=== PATIENT | male | born 1960 | race Caucasian/White ===

== ENCOUNTER → 2021-03-22 00:24 | Outpatient (CLI) | payer MEDICARE, SELFPAY ==
[2021-03-22 17:39] LABS: SARS-CoV-2 RNA PCR Negative
== END ==
PROVIDERS: PCP Internal Medicine; Visit Provider Internal Medicine Gastroenterology
DX: Z01.812 Encounter for preprocedural laboratory examination (principal); Z20.822 Contact with and (suspected) exposure to COVID-19
CPT/HCPCS: C9803; U0003; U0005

== ENCOUNTER 2021-03-25 03:01 | Day surgery (SDC) | payer MEDICARE, SELFPAY ==
[2021-03-11 13:56] VITALS: BMI 35.0
[2021-03-25 12:10] VITALS: BP 135/90; PULSE 81; RESP 20; TEMP 36.5; O2SAT 96
[2021-03-25] MEDS: LACTATED RINGERS 1,000 ML 150 ML IV CONT (12:23)
[2021-03-25 12:24] LABS: Glucose Point of Care 101 mg/dl (65-105)
--- NOTE | 2021-03-25 12:57 | WPDANESEPPF ---
Anes - Initial Pre Proc Eval Procedure: Operation Date: 03/25/21 13:15 Proposed Procedures p Screening Colonoscopy - Victoriano Pal MD Date/Time: 03/25/21 12:57 Surgeon: Victoriano Pal MD Pre Op Diagnosis: neoplasm screening Patient Data Age: 60 Gender: M Height: 1.8 m Weight: 113.2 kg Last Vital Signs Temp 36.5 C 03/25/21 12:10 Pulse 81 03/25/21 12:10 Resp 20 03/25/21 12:10 BP 135/90 03/25/21 12:10 Pulse Ox 96 03/25/21 12:10 Allergies Allergy/AdvReac Type Severity Reaction Status Date / Time No Known Allergies Allergy Verified 03/25/21 12:07 Home Medications Medication Instructions Recorded Confirmed Type albuterol sulfate 90 mcg/actuation 1 puff INHALATION Q4H PRN 03/05/21 03/11/21 History aerosol inhaler aspirin 81 mg tablet,delayed 81 mg PO DAILY 03/05/21 03/11/21 History release cyclobenzaprine 5 mg tablet 5 mg PO TID PRN 03/05/21 03/11/21 History escitalopram oxalate 20 mg tablet 20 mg PO DAILY 03/05/21 03/11/21 History furosemide 20 mg tablet 20 mg PO QAM 03/05/21 03/11/21 History lisinopril 20 mg tablet 20 mg PO DAILY 03/05/21 03/11/21 History metformin 1,000 mg tablet 1,000 mg PO BID 03/05/21 03/11/21 History metoprolol succinate 50 mg 50 mg PO DAILY 03/05/21 03/11/21 History tablet,extended release 24 hr nitroglycerin 0.4 mg sublingual 0.4 mg SUBLINGUAL Q5M PRN 03/05/21 03/11/21 History tablet oxycodone 10 mg tablet,crush 10 mg PO Q12H 03/05/21 03/11/21 History resistant,extended release 12 hr rosuvastatin 40 mg tablet 40 mg PO DAILY 03/05/21 03/11/21 History trazodone 50 mg tablet 50 mg PO QHS PRN 03/05/21 03/11/21 History Laboratory Tests 03/25/21 12:21 POC Capillary Glucose 101 mg/dl mg/dl (65-105) Patient hx anesthesia problems: none Family hx anesthesia problems: none Results Review: All pre-operative results and documents have been reviewed as part of the pre-operative evaluation. [facility] Past Medical History Medical History (Updated 03/06/21 @ 11:04 by Victoriano Pal MD) Cholecystectomy planned Colon cancer screening COPD (chronic obstructive pulmonary disease) Diabetes Elevated liver enzymes Fatty liver Hyperlipidemia Hypertension Hypertriglyceridemia Neuropathy Sleep apnea Tonsillectomy planned Surgical History Surgical History History of appendectomy History of cardiovascular surgery Family History Family History Mother Family history of malignant neoplasm of breast in first degree relative Social History Social History (Updated 03/06/21 @ 10:42 by Stephanie [facility]) Smoking packs per day: 2 Smoking cigarettes per day: 40.0 Years smoked: 40 Smoking pack-years: 80.00 Smoking status: Current every day smoker Tobacco type: cigarettes Alcohol intake: never Substance use: never Substance use type: does not use Living arrangements: with family Spiritual care concerns: No Anes - Eval Final PreProcedure Day of Procedure 03/25/21 12:57 Patient weight: obese Heart: regular rate and rhythm Lungs: clear to auscultation and normal air movement Airway: Mallampati scale class II Neurological: alert and oriented Last oral intake: >/= 8 hours ASA classification: III Emergent: no Anesthetic plan: proceed Anesthesia type and monitoring: general GIVS Results Review: All pre-operative results and documents have been reviewed as part of the pre-operative evaluation. Informed Consent: The patient's anesthetic plan and its attendant risks and benefits were discussed with the patient/family/POA. Questions were solicited and answers provided to the satisfaction of the patient/family/POA.
--- NOTE | 2021-03-25 13:09 | WPDHPUPDATE1 ---
History and Physical Update Update Date/Time: 03/25/21 13:09 History and Physical has been reviewed, including an updated exam of the patient. There are NO changes in the patient's condition. Risks, benefits, and alternatives have been discussed and questions answered. Patient agrees to proceed with procedure.
[2021-03-25 13:29] VITALS: BP 106/66; PULSE 97; RESP 27; O2SAT 94
[2021-03-25 13:39] VITALS: BP 110/69; PULSE 88; RESP 23; O2SAT 96
[2021-03-25 13:49] VITALS: BP 114/78; PULSE 79; RESP 25; O2SAT 97
== END 2021-03-25 13:51 | disposition home or self-care (01) ==
PROVIDERS: PCP Internal Medicine; Visit Provider Internal Medicine Gastroenterology
PROC: 0DJD8ZZ Inspection of Lower Intestinal Tract, Via Natural or Artificial Opening Endoscopic (ICD-10-PCS; CPT 45378; principal; 2021-03-25 13:15)
DX: Z12.11 Encounter for screening for malignant neoplasm of colon (principal); D12.4 Benign neoplasm of descending colon; K64.8 Other hemorrhoids; K64.4 Residual hemorrhoidal skin tags; K63.5 Polyp of colon; R79.89 Other specified abnormal findings of blood chemistry; J44.9 Chronic obstructive pulmonary disease, unspecified; E11.9 Type 2 diabetes mellitus without complications; Z90.49 Acquired absence of other specified parts of digestive tract; K76.0 Fatty (change of) liver, not elsewhere classified; E78.5 Hyperlipidemia, unspecified; I10 Essential (primary) hypertension; E78.1 Pure hyperglyceridemia; E11.40 Type 2 diabetes mellitus with diabetic neuropathy, unspecified; G47.30 Sleep apnea, unspecified; F17.210 Nicotine dependence, cigarettes, uncomplicated; Z79.82 Long term (current) use of aspirin; Z79.51 Long term (current) use of inhaled steroids; Z79.84 Long term (current) use of oral hypoglycemic drugs; E66.9 Obesity, unspecified; Z68.34 Body mass index [BMI] 34.0-34.9, adult
CPT/HCPCS: 45380; 45385; 82948; 88305; J2704; J7120

== ENCOUNTER 2022-09-17 08:58 | Outpatient (CLI) | payer MEDICARE, SELFPAY ==
[2022-09-17 09:50] LABS: Basophils Absolute Auto 0.1 K/mm3 (0.0-0.1); Basophils Percent Auto 0.8 % (0.2-1.2); Eosinophils Absolute Auto 0.4 K/mm3 (0-0.3); Eosinophils Percent Auto 4.6 % (0-4.4); Hematocrit 42.1 % (42.0-52.0); Hemoglobin 14.3 g/dL (14.0-18.0); Immature Granulocyte Absolute 0.04 K/mm3 (0.00-0.031); Immature Granulocyte Percent A 0.5 % (0-0.5); Lymphocytes Percent Auto 24.6 % (18.3-44.2); Mean Corpuscular Hemoglobin 29.5 pg (26-34); Mean Corpuscular Volume 86.8 fl (80-100); Mean Platelet Volume 9.3 fl (7.4-10.4); Monocytes Absolute Auto 0.8 K/mm3 (0.1-0.6); Monocytes Percent Auto 9.6 % (2.6-8.5); Neutrophils Absolute Auto 5.1 K/mm3 (1.3-6.7); Neutrophils Percent Auto 59.9 % (45.5-73.1); Platelet Count Result 348 k/mm3 (150-375); Red Blood Count 4.85 M/mm3 (4.6-6.20); Red Cell Distribution Width 12.4 % (11.5-14.5); White Blood Count 8.5 K/mm3 (4.5-10.0)
[2022-09-17 11:24] LABS: Alanine Aminotransferase 40 U/L (6-50); Albumin Level 4.6 g/dL (3.5-5.1); Alkaline Phosphatase 65 U/L (38-126); Anion Gap 6 mmol/L (8-16); Aspartate Amino Transferase 36 U/L (17-59); Bilirubin,Total 0.5 mg/dL (0.2-1.3); Blood Urea Nitrogen 16 mg/dL (9-20); Calcium 9.6 mg/dL (8.4-10.2); Carbon Dioxide 28 mmol/L (22-30); Chloride 104 mmol/L (98-107); Cholesterol 129 mg/dL (0-200); Estimated Glomerular Filt Rate > 60; Glucose 107 mg/dL (65-110); HDL Direct 30 mg/dL; Potassium 4.5 mmol/L (3.4-5.0); Sodium 138 mmol/L (137-145); Triglycerides 279 mg/dL (<150)
[2022-09-17 11:39] LABS: LDL Cholesterol Direct 53 mg/dL
[2022-09-17 11:42] LABS: Creatinine Urine 130.5 mg/dL
[2022-09-17 11:43] LABS: Erythrocyte Sedimentation Rate 6 mm/hr (0-20)
[2022-09-17 11:44] LABS: CRP < 0.5 mg/dL (<1.0)
[2022-09-17 11:45] LABS: Free T4 Free Thyroxine 0.99 ng/mL (0.78-2.19); Vitamin D 25 Hydroxy 46.5 ng/mL
[2022-09-17 11:47] LABS: MALB Creatinine Ratio 29.5 mg/g (0-30); Microalbumin Urine Random 38.5 mg/L (0-16.7)
[2022-09-17 12:00] LABS: Thyroid Stimulating Hormone 0.475 uIU/mL (0.465-4.680)
[2022-09-17 12:01] LABS: Hemoglobin A1C 6.3 % (<5.7)
[2022-09-23 11:45] LABS: BCR/abl Prior Result Not Given
[2022-09-23 12:34] LABS: BCR/abl P190 Not Detected; BCR/abl P210 Not Detected
[2022-09-23 12:35] LABS: BCR/abl P190 Chg YES; BCR/abl P210 Chg YES
[2022-09-24 15:37] LABS: Insulin Level Total 19.9 uIU/mL (<=19.6)
== END 2022-09-17 08:59 | disposition home or self-care (01) ==
LOC: ANHLAB 09:01
PROVIDERS: Internal Medicine Endocrinology, Diabetes & Metabolism; PCP Internal Medicine; Visit Provider Internal Medicine Hematology & Oncology
DX: E11.65 Type 2 diabetes mellitus with hyperglycemia (principal); D72.829 Elevated white blood cell count, unspecified; E78.5 Hyperlipidemia, unspecified; E55.9 Vitamin D deficiency, unspecified
CPT/HCPCS: 36415; 80053; 80061; 81206; 81207; 82043; 82306; 83036; 83525; 84439; 84443; 85025; 85652; 86140; 88184

== ENCOUNTER 2024-02-17 08:00 | Outpatient (CLI) | payer MEDICARE, SELFPAY ==
--- NOTE | ~2024-02-17 | US_ITS ---
Limited Abdominal Sonogram: Real-time sonographic imaging of the right upper quadrant was performed. Clinical History: Fatty liver Findings: The liver appears echogenic, with no evidence of mass lesion or bile duct dilatation. Main portal vein demonstrates normal direction of flow. The gallbladder is absent, compatible prior rommel cystectomy. The common bile duct measures 5 mm. The visualized pancreas, aorta, and IVC are unremark able. Right renal cyst noted. Impression: Diffuse fatty infiltration of liver. Status post cholecystectomy. Reviewed, dictated and finalized at location . Impression: Diffuse fatty infiltration of liver. Status post cholecystectomy.
== END 2024-02-17 08:01 | disposition home or self-care (01) ==
LOC: ANHIMG 08:02
PROVIDERS: PCP Internal Medicine; Visit Provider Nurse Practitioner Family
DX: K76.0 Fatty (change of) liver, not elsewhere classified (principal); Z90.49 Acquired absence of other specified parts of digestive tract
CPT/HCPCS: 76705

== ENCOUNTER 2025-02-07 09:50 | Outpatient (CLI) | payer MEDICARE, SELFPAY ==
--- OUTSIDE RECORDS SUMMARY | 2023-08-13 09:30 | XMS_ITS ---
Author Organization [facility] Office Address [address] [facility] [address] [facility] [address] [place] [address] Care Team Providers Care Hvac Journeyman Name Role Phone Allen Madhav Saini [phone] Social History Sex Assigned At : Social History Observation Description Sex Assigned At Male Encounters Encounter Location Date Provider Diagnosis [place] [facility] [address] [facility] [address] [place] [address] 08/13/2023 Madhav Villa Chronic kidney disea se, stage 3a N18.31 ; Essential (primary) hypertension I10 ; Heart failure, unspecified I50.9 and Renal osteodystrophy N25.0 Assessments Encounter Date Diagnosis (ICD Code) Assessment Notes Treatment Notes Treatment Clinical Notes Section Notes 08/13/2023 Chronic kidney disease, stage 3a (ICD-10 - N18.31) 08/13/2023 Essential (primary) hypertension (ICD-10 - I10) 08/13/2023 Heart failure, unspecified (ICD-10 - I50.9) 08/13/2023 Renal osteodystrophy (ICD-10 - N25.0) Plan Of Treatment No Information Progress Notes * WAQAS FLORENCEDOB:1960 (64 yo M)Acc No.[id number]:08/13/2023 Progress Notes Patient: WAQAS DELCID Provider: Calli DOWNS MD, F.A.C.P, F.A.S.N. :1960 A ge:63 Y S ex:Male Date:08/13/2023 Address:[address] [place] [address] Subjective: * Chief Complaints: * * Medical History: Objective: * Vitals: Assessment: * Assessment: 1. C hronic kidney disease, stage 3a - N18.31 2 . E ssential (primary) hypertension - I10 3 . H eart failure, unspecified - I50.9 4 . R enal osteodystrophy - N25.0 Plan: * Treatment: * Billing Information: * Visit Code: 49733 Office Visit, Est Pt., Level 4. * Procedure Codes: * Electronic signature of Letitia Villa MD on 02/07/2025 at 10:39 AM CDT Sign off status: Pending * Provider: Calli DOWNS MD, F.A.C.P, F.A.S.N. Date: 08/13/2023 Generated for Printing/Faxing/eTransmitting on: 0 02/07/2025 10:39 AM CDT
--- OUTSIDE RECORDS SUMMARY | 2024-04-28 10:00 | XMS_ITS ---
Author Organization [facility] Office Address [address] [place] [address] Care Team Providers Care Sander Operator Name Role Phone Madhav Villa Unavailable [phone] Social History Sex Assigned At : Social History Observation Description Sex Assigned At Male Encounters Encounter Location Date Provider Diagnosis [place] [facility] [address] [facility] 15 [place] [address] 04/28/2024 Madhav Villa Plan Of Treatment No Information Progress Notes * WAQAS FLORENCEDOB:1960 (64 yo M)Acc No.[id number]:04/28/2024 Progress Notes Patient: WAQAS DELCID Provider: Calli DOWNS MD, F.Abelardo.C.P, F.A.S.N. :1960 A ge:63 Y S ex:Male Date:04/28/2024 Address:[address] [place] [address] Subjective: * Chief Complaints: * * Medical History: Objective: * Vitals: Assessment: Plan: * Treatment: * Billing Information: * Visit Code: * Procedure Codes: * Electronic signature of Letitia Villa MD on 02/07/2025 at 10:40 AM CDT Sign off status: Pending * Provider: Calli DOWNS MD, Richar.Abelardo.C.P, F.A.S.N. Date: 06/29/2023 Generated for Printing/Faxing/eTransmitting on: 0 02/07/2025 10:40 AM CDT
--- OUTSIDE RECORDS SUMMARY | 2024-08-16 14:45 | XMS_ITS ---
Author Organization [facility] Office Address [address] [place] [address] Care Team Providers Care Cargo Bracer Name Role Phone Madhav Villa Unavailable [phone] Social History Sex Assigned At : Social History Observation Description Sex Assigned At Male Encounters Encounter Location Date Provider Diagnosis [place] [facility] 2043 [facility] 15 [place] [address] 08/16/2024 Madhav Villa Plan Of Treatment No Information Progress Notes * WAQAS FLORENCEDOB:1960 (64 yo M)Acc No.[id number]:08/16/2024 Progress Notes Patient: WAQAS DELCID Provider: Calli DOWNS MD, F.Abelardo.C.P, F.A.S.N. :1960 A ge:64 Y S ex:Male Date:08/16/2024 Address:[address] [place] [address] Subjective: * Chief Complaints: * * Medical History: Objective: * Vitals: Assessment: Plan: * Treatment: * Billing Information: * Visit Code: * Procedure Codes: * Electronic signature of Letitia Villa MD on 02/07/2025 at 10:39 AM CDT Sign off status: Pending * Provider: Calli DOWNS MD, Richar.Abelardo.C.P, F.A.S.N. Date: 08/16/2024 Generated for Printing/Faxing/eTransmitting on: 0 02/07/2025 10:39 AM CDT
--- OUTSIDE RECORDS SUMMARY | 2024-09-01 10:00 | XMS_ITS ---
Author Organization [facility] Office Address [address] [place] [address] Care Team Providers Care Entry Level Business Analyst Name Role Phone Madhav Villa Unavailable [phone] Social History Sex Assigned At : Social History Observation Description Sex Assigned At Male Encounters Encounter Location Date Provider Diagnosis [place] [facility] [address] [facility] 15 [place] [address] 09/01/2024 Madhav Villa Plan Of Treatment No Information Progress Notes * WAQAS FLORENCEDOB:1960 (64 yo M)Acc No.[id number]:09/01/2024 Progress Notes Patient: WAQAS DELCID Provider: Calli DOWNS MD, Richar.Abelardo.C.P, F.A.S.N. :1960 A ge:64 Y S ex:Male Date:09/01/2024 Address:[address] [place] [address] Subjective: * Chief Complaints: * * Medical History: Objective: * Vitals: Assessment: Plan: * Treatment: * Billing Information: * Visit Code: * Procedure Codes: * Electronic signature of Letitia Villa MD on 02/07/2025 at 10:39 AM CDT Sign off status: Pending * Provider: Calli DOWNS MD, Richar.Abelardo.C.P, F.A.S.N. Date: 09/01/2024 Generated for Printing/Faxing/eTransmitting on: 0 02/07/2025 10:39 AM CDT
--- OUTSIDE RECORDS SUMMARY | 2024-09-22 10:00 | XMS_ITS ---
Author Organization [facility] Office Address [address] [place] [address] Care Team Providers Care Flash Designer Name Role Phone Madhav Villa Unavailable [phone] Social History Sex Assigned At : Social History Observation Description Sex Assigned At Male Encounters Encounter Location Date Provider Diagnosis [place] Office 2043 [facility] 15 [place] [address] 09/22/2024 Madhav Villa Plan Of Treatment No Information Progress Notes * WAQAS FLORENCEDOB:1960 (64 yo M)Acc No.[id number]:09/22/2024 Progress Notes Patient: WAQAS DELCID Provider: Calli DOWNS MD, F.Abelardo.C.P, F.A.S.N. :1960 A ge:64 Y S ex:Male Date:09/22/2024 Address:[address] [place] [address] Subjective: * Chief Complaints: * * Medical History: Objective: * Vitals: Assessment: Plan: * Treatment: * Billing Information: * Visit Code: * Procedure Codes: * Electronic signature of Letitia Villa MD on 02/07/2025 at 10:39 AM CDT Sign off status: Pending * Provider: Calli DOWNS MD, Richar.Abelardo.C.P, F.A.S.N. Date: 0 09/22/2024 Generated for Printing/Faxing/eTransmitting on: 0 02/07/2025 10:39 AM CDT
--- NOTE | ~2025-02-07 | US_ITS ---
EXAMINATION: US venous doppler LE LT, 02/07/2025 10:05 CDT HISTORY: pain in lt leg Comparison: None Technique: Reyes-scale and color Doppler images were attempted of the lower saphenofemoral junction, common femoral vein,superficial femoral vein, proximal deep femoral vein, proximal deep femoral vein, popliteal vein and posterior tibial veins. Findings: Deep Venous System:Normal flow, augmentation and compressibility. No echogenic thrombus identified. The contralateral saphenofemoral junction appears unremarkable. Superficial Venous SystemNo superficial thrombophlebitis. Soft tissues: Soft tissues are unremarkable. Impression: Negative for DVT. Reviewed, dictated and finalized at location A. Impression: Negative for DVT.
--- OUTSIDE RECORDS SUMMARY | 2025-02-07 10:39 | XMS_ITS | Clinical Summary ---
Author Organization [facility] Address [address] [place] [address] Phone Care Team Providers Care Supervisor Records Change Name Role Phone Joselito Lazo MD Primary Care Provider Allergies Active Allergy Reactions Criticality Noted Date Comments Hydrocodone Itching Medium 2022 Morphine Unknown DERIVATIVES, CAUSED GI BURNING PER PATIENT STATEMENT ONCE, BUT PATIENT STATED ON 05/28/22HAS HAD MORPHINE SINCE THEN WITH NO PROBLEMS NOTED. Statins Other (see Comments) severe chest pains with all other statins besides Lipitor Medications cyclobenzaprine (FLEXERIL) 10 MG Tablet Take 10 mg by mouth 2 times daily. PER PATIENT ONLY TAKES ONCE DAILY AT NIGHT. Active ezetimibe (ZETIA) 10 MG Tablet Take 10 mg by mouth daily. Active furosemide (LASIX) 20 MG Tablet Take 1 Tab by mouth daily. 90 Tab 3 05/18/19 18 Active Semaglutide (OZEMPIC, 1 MG/DOSE, SC) 0.25 mg by Subcutaneous route every 7 days. Active traZODone (DESYREL) 50 MG Tablet 12/26/19 20 Active metFORMIN (GLUCOPHAGE) 1000 MG Tablet Take 1,000 mg by mouth 2 times daily (with meals). 12/26/19 20 Active albuterol 108 (90 Base) MCG/ACT Aerosol Solution 11/29/19 20 Active amitriptyline (ELAVIL) 25 MG Tablet Take 12.5 mg by mouth nightly. TAKES ONE HALF OF 25 MG TABLET NIGHTLY Active lisinopril (PRINIVIL, ZESTRIL) 20 MG Tablet Take 10 mg by mouth daily. Active metoprolol Succinate (TOPROL-XL) 100 MG TABLET SR 24 HR Take 100 mg by mouth daily. Active nitroGLYCERIN (NITROSTAT) 0.4 MG SL Tablet 0.4 mg by Sublingual route every 5 minutes as needed. Active oxyCODONE-acetami nophen (PERCOCET) 5-325 MG TabletIndications :Primary osteoarthritis of right hip Take 1-2 Tablets by mouth every 4 hours as needed for Moderate or more severe pain. 40 Tablet 06/09/19 23 Active Glucose Blood (Precision QID Test) Strip 1 Each by Other route daily. 05/25/19 24 Active latanoprost (XALATAN) 0.005 % Solution Place 1 Drop in both eyes nightly. 08/23/19 25 Active rosuvastatin (CRESTOR) 40 MG Tablet Take 1 Tablet by mouth daily. 03/27/20 24 Active vitamin E (Natural Vitamin E) 400 UNIT Capsule Take 800 Units by mouth daily. Active amLODIPine (NORVASC) 2.5 MG Tablet Take 1 Tablet by mouth daily. 90 Tablet 08/30/19 25 Active famotidine (PEPCID) 20 MG TabletIndications :Gastroesophageal Reflux Disease Take 1 Tablet by mouth 2 times daily. Indications: Gastroesophageal Reflux Disease 90 Tablet 08/29/19 25 Active Active Problems Problem Noted Date Diagnosed Date Chest pain 08/27/2024 FRANNY (obstructive sleep apnea) 01/25/2017 Chronic cough 12/13/2016 Tendonitis, Achilles, left 12/11/2016 Equinus contracture of left ankle 12/11/2016 Vitamin D deficiency 06/30/2016 Tobacco abuse 04/21/2016 Coronary arteriosclerosis 04/21/2016 Chronic fatigue 04/21/2016 Chronic bilateral low back pain without sciatica 03/26/2016 Stented coronary artery 03/26/2016 Neuropathy 03/26/2016 Hyperlipidemia 03/26/2016 Low testosterone 03/26/2016 Spondylosis 03/26/2016 Levoscoliosis 03/26/2016 Atypical chest pain 07/28/2015 Osteoarthritis Synovitis Overview (02/19/2015): L GALILEA IMPROVED Immunizations Immunization Administration Dates Next Due Influenza Vaccine greater than 3 yrs 04/03/2013 Family History Medical History Relation Name Comments No Known Problems Father Cancer Mother breast High Cholesterol Mother Hypertension Mother Relation Name Status Comments Father Mother Alive Social History Tobacco Use Types Packs/Day Years Used Date Smoking Tobacco: Every Day Cigarettes 1.5 40 Smokeless Tobacco: Never Tobacco Cessation:Ready to Q uit: Not Asked; Counseling Given: Not Answered Alcohol Use Standard Drinks/Week Comments Yes 0 (1 standard drink = 0.6 oz pur e alcohol) ONE DRINK A MONTH [facility] Utilities Answer Date Recorded In the past 12 months has e electric, gas, oil, or water company threatened to shut off services in your home? No 08/27/2024 Social Connection and Isolation Panel Answer Date Recorded In a typical week, how many times do you talk on the phone with family, friends, or neighbors? Patient declined 08/27/2024 How often do you get togethe r with friends or relatives? Patient declined 08/27/2024 How often do you attend protestant or rastafarian serv ices? Patient declined 08/27/2024 Do you belong to any clubs o r organizations such as protestant groups, unions, fraternal or athletic groups, or school groups? Patient declined 08/27/2024 How often do you attend meet ings of the clubs or organizations you belong to? Patient declined 08/27/2024 Are you , , di vorced, , never , or living with a partner? 08/27/2024 AUDIT-C Answer Date Recorded Q1: How often do you have a drink containing alc ohol? Monthly or less 08/27/2024 Q2: How many drinks containi ng alcohol do you have on a typical day when you are drinking? 1 or 2 08/27/2024 Q3: How often do you have si x or more drinks on one occasion? Never 08/27/2024 Overall Financial Resource Strain (CARDIA) Answe r Date Recorded How hard is it for you to pa y for the very basics like food, housing, medical care, and heating? Not hard at all 08/27/2024 [employer] [place] [facility] Occupat ional Health - Occupational Stress Questionnaire Answer Date Recorded Do you feel stress - tense, restless, nervous, or anxious, or unable to sleep at night because your mind is troubled all the time - these days? Patient declined 08/27/2024 Exercise Vital Sign Answer Date Recorde d On average, how many days pe r week do you engage in moderate to strenuous exercise (like a brisk walk)? Patient declined On average, how many minutes do you engage in exercise at this level? Patient declined 08/27/2024 Hunger Vital Sign Answer Date Recorded Within the past 12 months, y ou worried that your food would run out before you got the money to buy more. Never true 08/28/19 25 Within the past 12 months, t he food you bought just didn't last and you didn't have money to get more. Never true 08/27/2024 PRAPARE - Transportation Answer Date Re corded In the past 12 months, has l ack of transportation kept you from medical appointments or from getting medications? No 08/15 In the past 12 months, has l ack of transportation kept you from meetings, work, or from getting things needed for daily living? No 08/27/2024 Housing Stability Vital Sign Answer Edmundo e Recorded In the last 12 months, was t here a time when you were not able to pay the mortgage or rent on time? No 08/27/2024 In the past 12 months, how m any times have you moved where you were living? 0 08/27/2024 At any time in the past 12 m [facility], were you homeless or living in a group home (including now)? No 08/27/2024 Sexually Active Control Partners Comments Yes Female Sex and Gender Information Value Date Recorded Sex Assigned at Not on file Legal Sex Male 9:43 PM CDT Gender Identity Not on file Sexual Orientation Not on file Last Filed Vital Signs Vital Sign Reading Time Taken Comments Blood Pressure 142/92 08/28/2024 9:04 AM CDT Pulse 88 08/28/2024 9:04 AM CDT Temperature 36.4 C (97.6 F) 08/28/2024 5:01 AM CDT Respiratory Rate 16 08/28/2024 7:44 AM CDT Oxygen Saturation 94% 08/28/2024 7:44 AM CDT Inhaled Oxygen Concentration - - Weight 120.7 kg (266 lb) 08/28/2024 9:17 AM CDT Height 180.3 cm (5' 11) 08/28/2024 9:17 AM CDT Body Mass Index 37.1 08/28/2024 9:17 AM CDT Plan of Treatment Health Maintenance Due Date Last Done Comments TdaP Immunization 1961 Cologuard 2006 Colonoscopy 2006 Colorectal Cancer Screening 2006 Immunochemical Fecal Occult Blood 2006 Hepatitis B Immunization (2 of 3 - 19+ 3-dose series) 06/14/2009 05/17/2009 Zoster Immunization (1 of 2) 2011 Lung Cancer Screening 11/10/2019 11/09/2018 , 06/22/2017 Pneumococcal Immunization (5 0+ years) (2 of 2 - PCV) 03/14/2021 03/14/2020 Respiratory Syncytial Virus (RSV) Immunization (Adult) (1 - Risk 60-74 years 1-dose series) 2021 Influenza Immunization (#1) 01/15/202506/2019, 02/15/2020, 04/03/2013 SARS-COV-2 Immunization ( - season) 2025 Hepatitis C Virus (HCV) Screening Completed 09/13/2018 PSA Discussion Completed 11/23/2019, 07/12/2018, 02/25/2018 Pneumococcal Immunization Combined Discontinued 03/14/2020 Human Papillomavirus (HPV) Immunization Aged Out No longer eligible based on patient's age to complete this topic Meningococcal Immunization (ACWY) Aged Out No longer eligible based on patient's age to complete this topic Rotavirus Immunization Aged Out No lo nger eligible based on patient's age to complete this topic Medical Devices Implanted Type Area Crew Leader Device Identifier Shelf Expiration Date Model / Serial / Lot Liner Actb Altrx Hope Neutral 58mm 36mm Hip - [id number] Implanted:Qty: 1 on 06/09/2022 by Dhruv Troncoso MD at [facility] IMPLANT Right: Hip [employer] 01/14/2027 [id number] / [id number] / [id number] Screw Bone 6.5mm 35mm Hope Dome 4 Point Cut Flute Hip Actb Canc Slftp Hex Head Blunt Tip - [id number] Implanted:Qty: 1 on 06/09/2022 by Dhruv Troncoso MD at [facility] IMPLANT Right: Hip [employer] 12/15/2031 [id number] / [id number] / [id number] Shell Actb 58mm Hip Sector Gription Hope - [id number] Implanted:Qty: 1 on 06/09/2022 by Dhruv Troncoso MD at [facility] IMPLANT Right: Hip [employer] 03/16/2032 [id number] / [id number] / [id number] Head Fem 5mm 12/14 Taper 36mm Hip Cementless Biolox Delta Articul/Marco - [id number] Implanted:Qty: 1 on 06/09/2022 by Dhruv Troncoso MD at [facility] IMPLANT Right: Hip [employer] 04/15/2027 [id number] / [id number] / [id number] Femoral Stem Implanted:Qty: 1 on 06/09/2022 by Dhruv Troncoso MD at [facility] Right: Hip [employer] 09/14/2031 [id number] / [id number] / [id number] Procedures Procedure Name Priority Date/Time Associated Diagnosis Comments PSA FREE & TOTAL Routine 11/23/[address] CHEST W CONTRAST STAT 06/22/2017 4 :26 PM SUBSTATION MAINTENANCE TECHNICIAN from Last 3 Months or Most Recently Relevant to Health Maintenance Results * PSA FREE & TOTAL (11/23/2019) PSA (PROSTATE SPECIFIC ANTIGEN) 3.0 ng/mL Blood specimen (specimen) 11/23/2019 us Sonja Persaud MD CHEMISTRY ORDERABLES Edited Result - Final * CT CHEST W CONTRAST (06/22/2017 4:26 PM SUBSTATION MAINTENANCE TECHNICIAN) Anatomical Region Laterality Modality Chest N/A Computed Tomogra phy 06/22/2017 5:17 PM SUBSTATION MAINTENANCE TECHNICIAN Impressions 06/22/2017 5:20 PM SUBSTATION MAINTENANCE TECHNICIAN IMPRESSION: 1. No central pulmonary embolism. Evaluation of the peripheral pulmonary arteries limited by suboptimal bolus and respiratory motion. 2. Aneurysmal dilatation of the ascending thoracic aorta, measuring 4.4 cm at the level of the main pulmonary artery, previously 4.2 cm in 2014. Apparent interval enlargement may be related to motion artifact on today's examination. Continued imaging followup is recommended. 3. Dense coronary artery atherosclerotic calcifications. 4. Mild mosaic attenuation within the lungs, compatible small vessels or small airways disease. 5. Status post cholecystectomy. Automated exposure control was used as a dose optimization technique for this examination. Narrative 06/22/2017 5:20 PM SUBSTATION MAINTENANCE TECHNICIAN EXAMINATION: CT chest with contrast - pulmonary embolism protocol HISTORY: Right-sided chest pain for days; elevated D-dimer COMPARISON: 09/28/2013 TECHNIQUE: CT imaging of the chest is performed with intravenous contrast according to a pulmonary embolism protocol. 100 mL Isovue 370 administered intravenously via the left forearm IV site. Multiplanar reformatted images created at the technologist workstation and sent to the PACS for review. FINDINGS: No central pulmonary embolism. Evaluation of peripheral pulmonary arteries precluded by suboptimal bolus and respiratory motion. Heart size is normal. There are dense atherosclerotic calcifications of the coronary arteries. There is no pericardial effusion. There is aneurysmal dilatation of the ascending thoracic aorta, which measures 4.4 cm at the level of the main pulmonary artery, previously 4.2 cm on 09/28/2013. Interval enlargement possibly related to motion artifact on today's examination. There is mild atherosclerotic calcification of the thoracic aorta and proximal great vessels. There is mild bilateral gynecomastia. There is no axillary, supraclavicular, hilar, or mediastinal lymphadenopathy. Calcified mediastinal and hilar lymph nodes are compatible with healed granulomatous disease, unchanged from prior examination. There are multiple scattered calcified granulomas throughout the lungs. This appearance is unchanged from the prior examination. No suspicious noncalcified pulmonary nodule. No pleural effusion. No pneumothorax. The trachea and large airways are patent. There is mild mosaic attenuation within both lungs, suggesting small vessels or small airways disease. Limited images of the upper abdomen demonstrate a mild amount of ingested content within the stomach. There are postsurgical changes of cholecystectomy. There is mild diffuse hepatic steatosis. Tiny hiatal hernia is present. Bone windows demonstrate no suspicious lytic or blastic osseous lesions. THIS IS AN ELECTRONICALLY VERIFIED REPORT 06/22/2017 5:17 PM: Constantin Blancas M.D. Constantin Blancas M.D. Radiologist RT:rt [facility] Procedure Note Constantin Blancas MD - 06/22/2017 EXAMINATION: CT chest with contrast - pulmonary embolism protocol HISTORY: Right-sided chest pain for days; elevated D-dimer COMPARISON: 09/28/2013 TECHNIQUE: CT imaging of the chest is performed with intravenous contrast according to a pulmonary embolism protocol. 100 mL Isovue 370 administered intravenously via the left forearm IV site. Multiplanar reformatted images created at the technologist workstation and sent to the PACS for review. FINDINGS: No central pulmonary embolism. Evaluation of peripheral pulmonary arteries precluded by suboptimal bolus and respiratory motion. Heart size is normal. There are dense atherosclerotic calcifications of the coronary arteries. There is no pericardial effusion. There is aneurysmal dilatation of the ascending thoracic aorta, which measures 4.4 cm at the level of the main pulmonary artery, previously 4.2 cm on 09/28/2013. Interval enlargement possibly related to motion artifact on today's examination. There is mild atherosclerotic calcification of the thoracic aorta and proximal great vessels. There is mild bilateral gynecomastia. There is no axillary, supraclavicular, hilar, or mediastinal lymphadenopathy. Calcified mediastinal and hilar lymph nodes are compatible with healed granulomatous disease, unchanged from prior examination. There are multiple scattered calcified granulomas throughout the lungs. This appearance is unchanged from the prior examination. No suspicious noncalcified pulmonary nodule. No pleural effusion. No pneumothorax. The trachea and large airways are patent. There is mild mosaic attenuation within both lungs, suggesting small vessels or small airways disease. Limited images of the upper abdomen demonstrate a mild amount of ingested content within the stomach. There are postsurgical changes of cholecystectomy. There is mild diffuse hepatic steatosis. Tiny hiatal hernia is present. Bone windows demonstrate no suspicious lytic or blastic osseous lesions. THIS IS AN ELECTRONICALLY VERIFIED REPORT 06/22/2017 5:17 PM: Constantin Blancas M.D. Constantin Blancas M.D. Radiologist RT:rt [facility] IMPRESSION: 1. No central pulmonary embolism. Evaluation of the peripheral pulmonary arteries limited by suboptimal bolus and respiratory motion. 2. Aneurysmal dilatation of the ascending thoracic aorta, measuring 4.4 cm at the level of the main pulmonary artery, previously 4.2 cm in 2013. Apparent interval enlargement may be related to motion artifact on today's examination. Continued imaging followup is recommended. 3. Dense coronary artery atherosclerotic calcifications. 4. Mild mosaic attenuation within the lungs, compatible small vessels or small airways disease. 5. Status post cholecystectomy. Automated exposure control was used as a dose optimization technique for this examination. Riaz Gonzalez MD IMG CT ORDERABLES Final Re sult from Last 3 Months or Most Recently Relevant to Health Maintenance Additional Health Concerns Infection Onset Date Last Indicated MRSA 06/28/2022 06/28/2022 [facility] Directives * Full Code (Latest Code Status on File) Date Activated Date Inactivated Comments 08/27/2024 8:49 PM CPR-Full Treat ment: FULL ARREST: Attempt Resuscitation/CPR wit intubation and mechanical ventilation. PRE-ARREST: Use entire range of life support measures to stabilize the patient. * Full Code Date Activated Date Inactivated Comments 12/14/2016 1:21 PM 12/14/2016 7:59 PM CPR-Full Christiano atment: FULL ARREST: Attempt Resuscitation/CPR wit intubation and mechanical ventilation. PRE-ARREST: Use entire range of life support measures to stabilize the patient. Care Teams Supervisor Records Change Relationship Specialty Start Date End Date Joselito Lazo MD [address] [place] [place] [id number] PCP - General Internal Medicine 06/16/18
--- OUTSIDE RECORDS SUMMARY | 2025-02-07 10:39 | XMS_ITS | Encounter Summary ---
Author Organization [facility] Address [address] [place] [address] Phone Care Team Providers Care Sanitary Aide Name Role Phone Joselito Lazo MD Primary Care Provider Encounter Details Date Type Department Care Team (Late st Contact Info) Description 2022 Transcribe Orders [facility] Pre[facility] [address] [place] [address] Dhruv Troncoso MD [address] [place] [address], [address] [place] [address] Pre-op testing (Primary Dx) Social History Tobacco Use Types Packs/Day Years Used Date Smoking Tobacco: Every Day Cigarettes 1.5 40 Smokeless Tobacco: Never Alcohol Use Standard Drinks/Week Comments Yes 0 (1 standard drink = 0.6 oz pur e alcohol) ONE DRINK A MONTH Sexually Active Control Partners Comments Yes Female Sex and Gender Information Value Date Recorded Sex Assigned at Not on file Legal Sex Male 9:43 PM CDT Gender Identity Not on file Sexual Orientation Not on file COVID-19 Exposure Response Date Recorded In the last 10 days, have yo u been in contact with someone who was confirmed or suspected to have Coronavirus/COVID-19? No / Unsure 2022 11:16 AM WINE BLENDER documented as of this encounter Plan of Treatment Not on file documented as of this encounter Results * TYPE & SCREEN (CROSSMATCH CONVERTIBLE) (06/03/2022 7:54 AM WINE BLENDER) ABO TYPING O 06/03/2022 9:36 AM WINE BLENDER [facility] RH Positive 06/03/2022 9:36 AM WINE BLENDER [facility] ABSC Negative 06/03/2022 9:36 AM WINE BLENDER [facility] Blood Venipuncture / Unknown 06/03/2022 7:54 AM WINE BLENDER 06/03/2022 8:24 AM WINE BLENDER us Dhruv Troncoso MD BLOOD BANK ORDERABLES Ed ited Result - Final [facility] [address] [place] [address] documented in this encounter Visit Diagnoses Diagnosis Pre-op testing- Primary Preoperative examination, unspecified documented in this encounter Additional Health Concerns Infection Onset Date Last Indicated Resolved Time MRSA 06/28/2022 06/28/2022 Assessment Noted Time PHQ-9 Depression Total Score: 0 04/01/20 17 2:00 PM WINE BLENDER documented as of this encounter Care Teams Sanitary Aide Relationship Specialty Start Date End Date Joselito Lazo MD [address] [facility] [place] [id number] PCP - General Internal Medicine 06/16/18 documented as of this encounter
--- OUTSIDE RECORDS SUMMARY | 2025-02-07 10:39 | XMS_ITS | Clinical Summary ---
Author Organization [facility] [address] [place] [address] Professional Wilkinson Address [address] [place] [id number] Care Team Providers Care Barrel Planer Name Role Phone Domingo Lazo MD Primary Care Provide r Allergies Active Allergy Reactions Criticality Noted Date Comments Hydrocodone Itching Low 02/12/2020 Morphine Unknown 08/15/2021 DERIVATIVES Medications oxyCODONE-acet aminophen (PERCOCET) 10-325 mg per tablet Take 1 tablet by mouth 4 (four) times a day as needed for pain Active nitroglycerin (NITROSTAT) 0.[address] 1 tablet (0.4 mg total) under the tongue every 5 (five) minutes as needed for chest pain Active traZODone (DESYREL) 50 mg tablet Take 1 tablet (50 mg total) by mouth nightly For sleep Active aspirin 81 mg enteric coated tabletIndicati ons:cardiovasc ular disease Take 1 tablet (81 mg total) by mouth daily 30 tablet 3 02/16/20 20 Active amitriptyline (ELAVIL) 25 mg tablet Take 0.5 tablets (12.5 mg total) by mouth nightly Active albuterol HFA (PROVENTIL HFA,VENTOLIN HFA,PROAIR HFA) 90 mcg/actuation inhaler Inhale 1 puff every 4 (four) hours as needed for wheezing or shortness of breath 02/03/20 22 Active cyclobenzaprin e (FLEXERIL) 10 mg tablet Take 1 tablet (10 mg total) by mouth 2 (two) times a day as needed for muscle spasms 02/05/20 Active ezetimibe (ZETIA) 10 mg tablet Take 1 tablet (10 mg total) by mouth daily 05/02/20 Active lisinopriL (PRINIVIL,ZEST RIL) 10 mg tablet Take 1 tablet (10 mg total) by mouth daily 90 tablet 3 12/03/19 Active isosorbide mononitrate ER (IMDUR) 30 mg 24 hr tablet Take 1 tablet (30 mg total) by mouth daily 30 tablet 1 09/01/19 Active atorvastatin (LIPITOR) 40 mg tablet Take 1 tablet (40 mg total) by mouth daily 30 tablet 1 09/02/19 25 Active metoprolol XL (TOPROL-XL) 100 mg 24 hr tablet Take 1 tablet (100 mg total) by mouth daily 90 tablet 3 12/20/192025 Active amoxicillin-cl avulanate (AUGMENTIN) 875-125 mg per tablet Take 1 tablet by mouth every 12 (twelve) hours for 7 days 01/03/20 Active metFORMIN XR (GLUCOPHAGE XR) 750 mg 24 hr tablet Take 2 tablets (1,500 mg total) by mouth daily with breakfast With next prescription refill. E11.9 180 tablet 01/12/202025 Active semaglutide 0.25 mg or 0.5 mg (2 mg/3 mL) pen injector injectionIndic ations:type 2 diabetes mellitus Inject 0.5mg weekly if no symptoms of nausea, vomiting or abd. Pain. E11.65 3 mL 10/01/19 24 2024 Discontinued(T herapy completed) amLODIPine (NORVASC) 2.5 mg tablet Take 1 tablet (2.5 mg total) by mouth daily 08/30/192024 Discontinued(T herapy completed) metFORMIN (GLUCOPHAGE) 500 mg tablet Take 2 tablets (1,000 mg total) by mouth 2 (two) times a day with meals E11.9 360 tablet 09/05/192024 Discontinued Active Problems Problem Noted Date Diagnosed Date Unstable angina pectoris 08/29/2024 Severe obesity 05/04/2024 Trochanteric bursitis of left hip 12/28/2023 Class 1 obesity due to exces s calories with serious comorbidity and body mass index (BMI) of 34.0 to 34.9 in adult 07/07/2023 Assessment & Plan (05/04/2024 8:43 AM AUTOMOBILE UPHOLSTERER): This is a chronic condition which continues to worsened, most likely due to lack of activity from knee pain. Continue Ozempic 9 lbs. Weight gain since last office visit Encouraged healthy eating which includes a low carb diet. Avoiding processed foods, sweets and fried foods. Encouraged 30 minutes of walking at least 5 days per week Discussed that exercise can be broken down into small sessions- for example 2- 15 minutes sessions or 3- 10 minutes sessions. Assessment & Plan (12/03/2023 8:25 AM CDT): This is a chronic condition which has slightly improved Continue ozempic 3 lbs. Weight loss since last office visit Encouraged healthy eating which includes a low carb diet. Avoiding processed foods, sweets and fried foods. Encouraged 30 minutes of walking at least 5 days per week Discussed that exercise can be broken down into small sessions- for example 2- 15 minutes sessions or 3- 10 minutes sessions. Assessment & Plan (07/07/2023 9:04 AM AUTOMOBILE UPHOLSTERER): This is a chronic condition which is worsened 6 lb weight gain since last office visit Previously on Mounjaro/Ozempic unable to afford high co-pay He reports weight gain during the winter, decrease in the summer as his activity increases Encouraged healthy eating and exercise Aftercare following right hip joint replacement surgery 06/22/2022 Preoperative cardiovascular examination 05/20/19 23 Tobacco abuse 09/16/2021 Assessment & Plan (05/04/2024 8:39 AM AUTOMOBILE UPHOLSTERER): This a chronic condition which continues He feels ready to try and quit He is requesting to try Chantix Chantix ordered Coronary artery disease invo lving sioux coronary artery of sioux heart without angina pectoris 03/13/2020 Cellulitis 02/14/2020 Renal lesion 02/14/2020 Prostate enlargement 02/14/2020 Coronary artery disease invo lving sioux coronary artery with unstable angina pectoris 02/13/2020 Type 2 diabetes mellitus wit h stage 2 chronic kidney disease, without long-term current use of insulin 02/13/2020 Assessment & Plan (05/04/2024 8:41 AM AUTOMOBILE UPHOLSTERER): This is a chronic condition which is elevated, but remains at goal . Goal is less than 7%. Personally reviewed most recent A1c - Lab Results Component Value Date HGBA1C 7.0 05/04/2024 Personally reviewed POC blood sugar- at goal of 80-180 Lab Results Component Value Date POCGLU 145 05/04/2024 Medication- continue Metformin 500mg - take 2 tablets twice a day. Continue Ozempic 0.25 mg weekly- taking lower dose due to cost. Encouraged to Monitor blood sugar daily Encouraged annual eye exam. last continue Metformin 500mg - take 2 tablets twice a day. Continue Ozempic 0.25 mg weekly- taking lower dose due to cost. Monofilament foot exam completed. Protective senses - intact. Sees Dr. Mary for Podiatry eGFR- 69 Kidney function-normal Urine microalbumin/creatinine ratio - at goal. Goal is <30 Continue Lasix, lisinopril, metoprolol Assessment & Plan (12/03/2023 8:24 AM CDT): This is a chronic condition which is at goal . Goal is less than 7%. Personally reviewed most recent A1c - Lab Results Component Value Date HGBA1C 6.6 12/03/2023 Personally reviewed POC blood sugar- at goal of 80-180 Lab Results Component Value Date POCGLU 122 12/03/2023 Medication- continue Metformin 500mg - take 2 tablets twice a day. Continue Ozempic 0.25 mg weekly- taking lower dose due to cost. Monitor blood sugar daily Encouraged annual eye exam. last dilated eye exam was [facility] [place] Monofilament foot exam completed. Protective senses intact. Personally reviewed [facility] eGFR-69 Kidney function-abnormal Urine microalbumin/creatinine ratio - at goal. Goal is <30. Continue lisinopril Assessment & Plan (07/07/2023 9:02 AM AUTOMOBILE UPHOLSTERER): This is a chronic condition which is worsening but at goal of less than 7%. Encouraged to take metformin as prescribed. This is probably the reason his A1c is elevated and his 6 lb weight gain Personally reviewed most recent A1c - Lab Results Component Value Date HGBA1C 7.0 07/07/2023 Personally reviewed POC blood sugar- at goal 80-180 Lab Results Component Value Date POCGLU 138 07/07/2023 Medication- encouraged to take Metformin 500mg - take 2 tablets twice a day. Monitor blood sugar daily Encouraged annual eye exam. last dilated eye exam was [facility] Monofilament foot exam completed. protective senses intact Personally reviewed CMP eGFR- 69 Kidney function- abnormal Urine microalbumin/creatinine ratio - goal <30 treated with Lasix, lisinopril, metoprolol B/P today- not at goal of <140/90. continue Lasix lisinopril metoprolol Personally reviewed lipid panel. at Goal of less than 70. Continue Zetia , atorvastatin alternating with rosuvastatin. This is done to prevent chest pain Assessment & Plan (03/31/2023 9:49 AM AUTOMOBILE UPHOLSTERER): This is a chronic condition which is at goal of less than 7%. Personally reviewed most recent A1c - Lab Results Component Value Date HGBA1C 6.2 03/31/2023 Personally reviewed POC blood sugar- at goal 80-180 Lab Results Component Value Date POCGLU 151 03/31/2023 Medication- Continue Metformin 500mg - take 2 tablets twice a day. Has been treated with ozempic and mounjaro. He states Ozempic work better for him than the mounjaro. He stopped both medications do the cost. Monitor blood sugar daily- 3x/week. Encouraged annual eye exam. last dilated eye exam was [facility] in [place] Monofilament foot exam completed. protective senses intact Personally reviewed CMP eGFR- 69 Kidney function- normal Urine microalbumin/creatinine ratio - goal <30 not treated with lisinopril, Lasix, metoprolol B/P today- at goal of <140/90. continue lisinopril, Lasix, metoprolol Personally reviewed lipid panel. at Goal of less than 70. Continue atorvastatin Abnormal stress test 02/13/2020 Abdominal wall mass 02/13/2020 Hyponatremia 02/13/2020 Leukocytosis 02/13/2020 Acute coronary syndrome 02/12/2020 Overview (02/13/2020): Added automatically from request for surgery [id number] Coronary artery disease invo lving sioux coronary artery of sioux heart without angina pectoris 01/24/2020 Arthritis of left acromioclavicular joint 2018 Overview (12/23/2018): Added automatically from request for surgery [id number] Impingement syndrome of shoulder region 12/24/19 Overview (12/23/2018): Added automatically from request for surgery [id number] Biceps tendinitis 12/23/2018 Overview (12/23/2018): Added automatically from request for surgery [id number] Chronic back pain 09/30/2013 Overview (08/21/2016): Chronic Back Pain Essential hypertension 09/30/2013 Overview (08/21/2016): Hypertension Assessment & Plan (05/04/2024 8:44 AM AUTOMOBILE UPHOLSTERER): This is a chronic condition which is at goal. Goal is less than 140/90 Continue Lasix, lisinopril, metoprolol Encouraged to monitor weight and B/P at home. Assessment & Plan (12/03/2023 8:19 AM CDT): This is a chronic condition which is at goal. Goal is less than 140/90. Patient expresses concerns over b/p being to low. Personally reviewed labs. Decrease lisinopril 10mg daily. Encouraged to monitor weight and B/P at home. Explained correct way to take blood pressure. - After 5 minutes of sitting calmly with arm supported. Encouraged to void caffeine and excessive alcohol consumption as this will elevate B/P Encouraged to take medications as prescribed. Assessment & Plan (07/07/2023 9:03 AM AUTOMOBILE UPHOLSTERER): This is a chronic condition which is at goal of less than 140/90 Personally reviewed labs. Continue Lasix, lisinopril, metoprolol Encouraged to monitor weight and B/P at home Encouraged to take medications as prescribed. Assessment & Plan (03/31/2023 9:50 AM AUTOMOBILE UPHOLSTERER): This is a chronic condition which is at goal of less than 140/90 Personally reviewed labs. Continue lisinopril, Lasix, metoprolol Encouraged to monitor weight and B/P at home Encouraged to take medications as prescribed. Mixed diabetic hyperlipidemi a associated with type 2 diabetes mellitus 09/30/2013 Overview (08/21/2016): Hyperlipidemia Assessment & Plan (05/04/2024 8:42 AM AUTOMOBILE UPHOLSTERER): This is a chronic condition which is at goal . Goal is LDL less than 70 Continue atorvastatin alternating with rosuvastatin, and Zetia. Does not tolerate Lipitor. It causes him to have chest pains Encouraged to eat healthy, include fresh fruits and vegetables daily and avoid eating fried foods more than once per week. Assessment & Plan (12/03/2023 8:24 AM CDT): Personally reviewed lipid panel. At goal. Goal is less than 70. Continue atorvastatin Assessment & Plan (07/07/2023 9:02 AM AUTOMOBILE UPHOLSTERER): This is a chronic condition which is at goal of LDL less than 70 Continue Zetia, atorvastatin alternating with rosuvastatin Encouraged to eat healthy, include fresh fruits and vegetables daily and avoid eating fried foods more than once per week. Encouraged to take medications as prescribed. Assessment & Plan (03/31/2023 9:49 AM AUTOMOBILE UPHOLSTERER): This is a chronic condition which is at goal of LDL less than 70 Continue atorvastatin Encouraged to eat healthy, include fresh fruits and vegetables daily and avoid eating fried foods more than once per week. Encouraged to take medications as prescribed. Chronic obstructive pulmonary disease 09/30/2013 Overview (08/21/2016): COPD (Chronic Obstructive Pulmonary Disease) Deep vein thrombosis (DVT) of lower extremity Overview (08/21/2016): DVT of leg Chest pain Resolved Problems Problem Noted Date Diagnosed Date Resolved Date Statin intolerance 08/31/2024 5 Encounters Date Type Department Care Team Description 01/11/2025 7:30 AM CDT Office Visit [facility] at [address] [phone] Holley Hoffman NP Class 1 obesity due to excess calories with serious comorbidity and body mass index (BMI) of 34.0 to 34.9 in adult (Primary Dx); Type 2 diabetes mellitus with stage 2 chronic kidney disease, without long-term current use of insulin (HCC); Essential hypertension; Mixed diabetic hyperlipidemia associated with type 2 diabetes mellitus (HCC) 01/11/2025 Orders Only [facility] [address] [place] [phone] Won Hutchison MD Acute pain of right shoulder (Primary Dx); Nontraumatic tear of right rotator cuff, unspecified tear extent 01/11/2025 Telephone [facility] [address] [phone] Won Hutchison MD 12/27/2024 Results Follow-Up [facility] at [address] [phone] Holley Hoffman NP Lipid panel, Albumin Creatinine Ratio, Urine 12/26/2024 Orders Only [facility] at [address] [phone] Holley Hoffman NP from Last 3 Months Surgical History Surgery Date Site/Laterality Comments OTHER SURGICAL HISTORY 1987 gallstones: Cholecystectomy OTHER SURGICAL HISTORY 2004 arm pain: L medial epicondyle release OTHER SURGICAL HISTORY 1985 Tonsillitis: tonsillectomy OTHER SURGICAL HISTORY 1985 Tonsillitis: adenoidectomy OTHER SURGICAL HISTORY 2009 Carpal tunnel syndrome: carpal tunnel release OTHER SURGICAL HISTORY 2009 ulnar nerve release APPENDECTOMY 1984 Appendectomy OTHER SURGICAL HISTORY Cholecystitis: Cholecystectomy SHOULDER ARTHROSCOPY 2012 Right Arthroscopy shoulder CHOLECYSTECTOMY 1992 Cholecystectomy OTHER SURGICAL HISTORY 2012 Rotator cuff tear (right): rotator cuff repair/arthroscopy OTHER SURGICAL HISTORY 2008 Achilles tendon tear (right): surgery OTHER SURGICAL HISTORY Peripheral neuropathy: Drug therapy OTHER SURGICAL HISTORY Prostatitis: Drug therapy OTHER SURGICAL HISTORY 2009 Carpal tunnel syndrome: carpal tunnel release (left) OTHER SURGICAL HISTORY 2009 Ulnar nerve compression: ulnar nerve decompression & transposition (left) OTHER SURGICAL HISTORY Ulnar nerve compression: ulnar nerve decompression & transposition (right) OTHER SURGICAL HISTORY 2009 Medial meniscus tear: Knee arthroscopy & medial menisectomy OTHER SURGICAL HISTORY 2008 Coronary artery disease: angioplasty with 2 stents OTHER SURGICAL HISTORY Chronic low back pain (s/p trauma): LESIs, pain management OTHER SURGICAL HISTORY Right wrist fracture: cast immobilization CARDIAC CATHETERIZATION 08/31/2024 N/A Procedure: LEFT HEART CATHETERIZATION WITH CORONARY ANGIOGRAPHY AND WITH OR WITHOUT LEFT VENTRICULOGRAM [id number]; Surgeon: Maria Del Carmen Gill MD; Location: [facility] [employer]; Service: Cardiovascular; Laterality: N/A; Medical devices from this surgery are in the Medical Devices section. Medical History Medical History Date Comments Hx Other Medical 1987 gallstones Hx Other Medical arm pain Tonsillitis 1985 Tonsillitis Hypertension Hypertension Hyperlipidemia Hyperlipidemia Hx Other Medical Carpal tunnel s yndrome; Outcome: resolved Cardiovascular disease Coronary artery disease Rheumatoid arthritis (HCC) Rheum atoid arthritis Hx Other Medical Cholecystitis Disorder of thyroid Thyroid dise ase; patient denies this diagnosis 12/27/18 Peripheral nerve disease Periphe ral nerve disease Hx Other Medical Rotator cuff te ar (right) Hx Other Medical Achilles tendon tear (right) Hx Other Medical Peripheral neur opathy Osteoarthritis Osteoarthritis Hx Other Medical Tobacco abuse Hx Other Medical 2011 Prostatitis Hx Other Medical Carpal tunnel s yndrome Hx Other Medical Ulnar nerve com pression Hx Other Medical Medial meniscus tear Hx Other Medical 2004 Chronic low sherie k pain (s/p trauma) Hx Other Medical 2004 Left shoulder f racture Hx Other Medical 2010 Right wrist fra cture Hx Other Medical 2010 Severe left for aminal stensois (L5-S1) Hx Other Medical 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 Hx Other Medical Lumbar radiucul opathy Sleep apnea CPAP Myocardial infarction (HCC) 2014 Myoc ardial infarction Coronary artery disease Cardiac Stents x 2 GERD (gastroesophageal reflu x disease) Fatty liver Type 2 diabetes mellitus Neuropathy LE's Statin intolerance 08/31/2024 Family History Medical History Relation Name Comments Diabetes Brother 1 Heart disease Brother 1 Other Brother 3 Alive and well; 1 Other Brother 4 Alive and well; 2 Other Father ; Cause of : /Unknown; Cause of : Unknown Breast cancer Mother Cancer -breast ; /Cancer, breast; Cancer Mother Cancer, unknown ; Heart failure Mother Congestive hea rt failure; Hyperlipidemia Mother Hyperlipidemi a; Hypertension Mother Hypertension; Cancer Other 1 Family history of Cancer, unknown; Diabetes Other 2 Family history of Diabetes mellitus; Heart disease Other 3 Family history of Heart disease; Hypertension Other 4 Family history of Hypertension; Other Sister 6 Alive and well; 1 Other Sister 7 Alive and well; 2 Other Sister 8 Alive and well; 3 Other Sister 9 Alive and well; 4 Other Sister 10 Alive and well; 5 Relation Name Status Comments Brother 1 Alive Brother 2 Alive Brother 3 Brother 4 Father (Age 30) Mother Other 1 Other 2 Other 3 Other 4 Sister 1 Alive Sister 2 Alive Sister 3 Alive Sister 4 Alive Sister 5 Alive Sister 6 Sister 7 Sister 8 Sister 9 Sister 10 Social History Tobacco Use Types Packs/Day Years Used Date Smoking Tobacco: Heavy Smoker Cigarettes 2 45 Smokeless Tobacco: Never Tobacco Cessation:Ready to Q uit: Not Asked; Counseling Given: Not Answered Comments:Pt has a plan to decrease and quit Alcohol Use Standard Drinks/Week Comments Yes 0 (1 standard drink = 0.6 oz pur e alcohol) very little [facility] Utilities Answer Date Recorded In the past 12 months has [employer], gas, oil, or water [employer] threatened to shut off services in your home? No 08/30/2024 Social Connection and Isolation Panel Answer Date Recorded In a typical week, how many times do you talk on the phone with family, friends, or neighbors? Three times a week 08/30/2024 How often do you get togethe r with friends or relatives? Three times a week 08/30/2024 How often do you attend chur ch or synagogue services? Never 08/30/2024 Do you belong to any clubs o r organizations such as holiness groups, unions, fraternal or athletic groups, or school groups? No 08/30/2024 How often do you attend meet ings of the clubs or organizations you belong to? Never 08/30/2024 Are you , , di vorced, , never , or living with a partner? 08/30/2024 AUDIT-C Answer Date Recorded Q1: How often do you have a drink containing alc ohol? Monthly or less 12/28/2023 Q2: How many drinks containi ng alcohol do you have on a typical day when you are drinking? 1 or 2 12/28/2023 Q3: How often do you have si x or more drinks on one occasion? Less than monthly 12/28/2023 Overall Financial Resource Strain (CARDIA) Answe r Date Recorded How hard is it for you to pa y for the very basics like food, housing, medical care, and heating? Not very hard 08/30/2024 Hunger Vital Sign Answer Date Recorded Within the past 12 months, y ou worried that your food would run out before you got the money to buy more. Never true 08/31/19 25 Within the past 12 months, t he food you bought just didn't last and you didn't have money to get more. Never true 08/30/2024 PRAPARE - Transportation Answer Date Re corded In the past 12 months, has l ack of transportation kept you from medical appointments or from getting medications? No 08/15 In the past 12 months, has l ack of transportation kept you from meetings, work, or from getting things needed for daily living? No 08/30/2024 Housing Stability Vital Sign Answer Edmundo e Recorded In the last 12 months, was t here a time when you were not able to pay the mortgage or rent on time? No 08/30/2024 In the past 12 months, how m any times have you moved where you were living? 0 08/30/2024 At any time in the past 12 [facility], were you homeless or living in a residential (including now)? No 08/30/2024 Personal Safety Answer Date Recorded Have you ever been in or are you currently in a harmful physical or emotional relationship or is someone making you feel afraid or unsafe? Denies 08/29/2024 Sex and Gender Information Value Date Recorded Sex Assigned at Not on file Legal Sex Male 2:30 PM AUTOMOBILE UPHOLSTERER Gender Identity Male 03/12/2022 7:40 AM CDT Sexual Orientation Not on file Obstetrics History Last Filed Vital Signs Vital Sign Reading Time Taken Comments Blood Pressure 116/76 01/11/2025 7:48 AM CDT Pulse 87 10/11/2024 1:36 PM CDT Temperature 36.4 C (97.5 F) 08/31/2024 9:33 AM CDT Respiratory Rate 18 08/31/2024 11:3 5 AM CDT Oxygen Saturation 98% 08/31/2024 10: 55 AM CDT Inhaled Oxygen Concentration - - Weight 108.6 kg (239 lb 6.4 oz) 01/11/2025 7:48 AM CDT Height 177.8 cm (5' 10) 01/11/2025 7:48 AM CDT Body Mass Index 34.35 01/11/2025 7:48 AM CDT Plan of Treatment Health Maintenance Due Date Last Done Comments Depression Screening 1961 Prostate Cancer Screening-PSA 1961 Regular Well Visit/Exam 18-64 1979 Lung Cancer Screening 2011 Zoster Vaccine (1 of 2) 2011 DTaP/Tdap/Td Vaccine (1 - Tdap) 10/14/2019 0 Pneumococcal vaccine <65 (2 of 2 - PCV) 03/14/2021 03/14/2020 Colon Cancer Screening-Colonoscopy 03/21/2022 03/21/2012 Influenza Vaccine (#1) 2025 0, 02/15/2020, 04/03/2013 Hemoglobin A1C 03/06/2025 09/04/2024, 08/15, 05/04/2024, Additional history exists eGFR 08/31/2025 08/31/2024, 08/15, 08/30/2024, Additional history exists Albumin Creatinine Ratio, Urine 12/26/2025 5, 07/09/2023 Lipid Panel 12/26/2025 12/26/2024, 0207/2023, 02/13/2020 Foot Exam 01/11/2026 01/11/2025, 04/16, 12/03/2023, Additional history exists Dilated Eye Exam 10/06/2026 10/06/2024, 12/04/2022 Hepatitis B Screening Completed 05/17/2009 Hepatitis C Screening Completed 05/17/2009 Colon Cancer Screening-CT Colonography Discontinued 03/21/2012 Colon Cancer Screening-DNA Stool Discontinued 03/21/20 Colon Cancer Screening-FIT Discontinued 03/21/2012 Colon Cancer Screening-Sigmoidoscopy Discontinued 03/21/2012 Medical Devices Implanted Type Area Licensed Real Estate Broker Device Identifier Shelf Expiration Date Model / Serial / Lot [employer] [id number] Synergy 2.75mm 16mm 144cm Radiopaque 1 Access Port Inflation - [id number] Implanted:Qty: 1 on 02/13/2020 by Juan Chaudhry MD at [facility] [employer] 05/21/2021 [id number] / / [id number] Local Eye Site Angio-Seal Vip 6fr Closere Device [id number] - [id number] Implanted:Qty: 1 on 08/31/2024 by Maria Del Carmen Gill MD at [facility] [id number] 04/03/2025 [id number] / / [id number] Procedures Procedure Name Priority Date/Time Associated Diagnosis Comments POCT GLUCOSE Routine 01/11/2025 7:49 AM CDT Type 2 diabetes mellitus with stage 2 chronic kidney disease, without long-term current use of insulin (HCC) ALBUMIN CREATININE RATIO, URINE Routine 12/26/2024 7:31 AM CDT LIPID PANEL Routine 12/26/2024 7:31 AM CDT DIABETIC EYE EXAM Routine 10/06/2024 POCT HEMOGLOBIN A1C Routine 09/04/2024 7 :45 AM CDT Type 2 diabetes mellitus with stage 2 chronic kidney disease, without long-term current use of insulin (HCC) EGFR Routine 08/31/2024 3:04 AM CDT COLONOSCOPY 03/21/2012 12:00 AM AUTOMOBILE UPHOLSTERER from Last 3 Months or Most Recently Relevant to Health Maintenance Results * POCT glucose (01/11/2025 7:49 AM CDT) Glucose Blood, POC 148 Normal Fasting 70 - 100, Random <200 mg/dL Blood 01/11/2025 7:49 AM CDT us Holley Hoffman ASSEMBLY LINE LEADER POINT OF CARE TEST ORDERABLES F inal Result * Albumin Creatinine Ratio, Urine (12/26/2024 7:31 AM CDT) Creatinine, ur 116 20 - 320 mg/dL [facility] Microalbumin, ur 1.5 See Note: mg/dL [facility] Comment: Reference Range: Reference Range Not established Microalbumin/creat ratio 13 <30 mg/g creat [facility] Comment: The ADA defines abnormalities in albumin excretion as follows: Albuminuria Category Result (mg/g creatinine) Normal to Mildly increased <30 Moderately increased 30-299 Severely increased > OR = 300 The ADA recommends that at least two of three specimens collected within a 3-6 month period be abnormal before considering a patient to be within a diagnostic category. 12/26/2024 7:31 AM CDT 12/26/2024 7:31 AM CDT Narrative [facility] - 12/27/2024 6:34 AM CDT FASTING:YES FASTING: YES Holley Hoffman ASSEMBLY LINE LEADER LAB URINE ORDERABLES Final Resu lt [facility] [address] [place] [address] * (ABNORMAL) Lipid panel (12/26/2024 7:31 AM CDT) Cholesterol 151 <200 mg/dL [facility] HDL 30(L) > OR = 40 mg/dL [facility] Triglycerides 307(H) <150 mg/dL [facility] Comment: If a non-fasting specimen was collected, consider repeat triglyceride testing on a fasting specimen if clinically indicated. Amarjit et al. J. of Clin. Lipidol. 2015;9:129-169. LDL 84 mg/dL (calc) [facility] Comment: Reference range: <100 Desirable range <100 mg/dL for primary prevention; <70 mg/dL for patients with CHD or diabetic patients with > or = 2 CHD risk factors. LDL-C is now calculated using the Eliezer-Moody calculation, which is a validated novel method providing better accuracy than the Friedewald equation in the estimation of LDL-C. Eliezer SS et al. BETSY. 2013;310(19): 3973-2484 (http://education.TipTap/faq/TKE080) Chol/HDL ratio 5.0(H) <5.0 (calc) [facility] Non-HDL, (LDL+VLDL) 121 <130 mg/dL (calc) [facility] Comment: For patients with diabetes plus 1 major ASCVD risk factor, treating to a non-HDL-C goal of <100 mg/dL (LDL-C of <70 mg/dL) is considered a therapeutic option. 12/26/2024 7:31 AM CDT 12/26/2024 7:31 AM CDT Narrative [facility] - 12/27/2024 6:34 AM CDT FASTING:YES FASTING: YES Holley Hoffman NP LAB BLOOD ORDERABLES Final Resu lt [facility] [address] [place] [address] * Diabetic Eye Exam (10/06/2024) 10/06/2024 Historical Provider HEALTH MAINTENANCE Final Result * (ABNORMAL) POCT hemoglobin A1c (09/04/2024 7:45 AM CDT) Hemoglobin A1C, POC 6.8 4.0 - 5.6 % Blood 09/04/2024 7:45 AM CDT Holley Hoffman NP POINT OF CARE TEST ORDERABLES F inal Result * eGFR (08/31/2024 3:04 AM CDT) eGFR 62 >=60 mL/min/1. 73 m2 Comment: Interpretive Data Reference Interval Normal >/= 90 mL/min/1.73m2 Mildly decreased* 60 - 89 mL/min/1.73m2 Mildly to moderately decreased 45 - 59 mL/min/1.73m2 Moderately to severely decreased 30 - 44 mL/min/1.73m2 Severely decreased 15 - 29 mL/min/1.73m2 Kidney Failure < 15 mL/min/1.73m2 *Relative to young adult level Estimated glomerular filtration rate is determined by the 2020 CKD-EPI equation recommended by the National Kidney Foundation (A Unifying Approach to GFR Estimation: Recommendations of the NKF-ASK Task Force on Reassessing the Inclusion of Race in Diagnosing Kidney Disease, JASN 2020). The CKD-EPI equation should not be used for patients with unstable renal function and has not been validated in children and those over 70. Current interpretive data was last reviewed 2021. Blood 08/31/2024 3:04 AM CDT 08/31/2024 3:38 AM CDT Oanh Welch DO LAB BLOOD ORDERABLES Fin al Result ELÍAS JIMENEZ ABERDEEN [address] [facility] Department [place] [address] * COLONOSCOPY (03/21/2012 12:00 AM AUTOMOBILE UPHOLSTERER) Anatomical Region Laterality Modality Other Narrative 03/21/2012 12:00 AM AUTOMOBILE UPHOLSTERER Ordered by an unspecified provider. Procedure Note Provider, MD Jimmy - 03/21/2012 12:00 AM CST PROCEDURE REPORT Patient: WAQAS SANON Account: [id number] Room No: : 1960 Patient Type: [facility] Attend.: Chaim Friedman M.D. Admit Date: 03/21/2012 Dict.: Chaim Friedman M.D. Disch. Date:03/21/2012 NAME OF PROCEDURE: Colonoscopy. HISTORY: 51-year-old male who presents for screening colonoscopy. HISTORY: Well-developed male. Lungs were clear. Cardiovascularexamination was unremarkable. PROCEDURE: Colonoscopy was performed with the Down video endoscope.The patient was premedicated by anesthesia. On digital examination, no abnormalities were palpable. We inserted the endoscope and advanced it tothe cecum. The colon was not perfectly prepped. We had to do quite a bit of irrigation and suctioning to see the mucosa. Nevertheless, I was not ableto demonstrate any evidence of inflammation of the mucosa through the lengthof bowel, in spite of the poor prep. The patient tolerated the procedurewithout difficulty. POSTOPERATIVE DIAGNOSIS: No abnormalities noted. Chaim Friedman M.D. /letitia TD: 03/22/2012 05:45 CC: Dr. Keagan Edge Authenticated by Chaim Friedman MD On 03/25/2012 07:37:09 AM Historical Provider MD ENDOSCOPY PROCEDURES Corry l Result from Last 3 Months or Most Recently Relevant to Health Maintenance Insurance [facility] MDCR HMO REF IDPA HUMANA CHOICE MEDICARE PPO 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
--- OUTSIDE RECORDS SUMMARY | 2025-02-07 10:39 | XMS_ITS | Patient Health Record ---
Author Organization [facility] Address [address] [place] [address] Care Team Providers Care Blanket Folder Name Role Phone Madhav Villa Unavailable [phone] Reason For Referral No Information Social History Sex Assigned At : Social History Observation Description Sex Assigned At Male Problems Problem Type SNOMED Code ICD Code Onset Dates Problem Status W/U Status Risk Notes Problem Essential hypertension (11436149) Essential (primary) hypertension (I10) Active confirmed Problem Heart failure (45404903) Heart failure, unspecified (I50.9) Active confirmed Problem Renal osteodystrophy (56672693) Renal osteodystrophy (N25.0) Active confirmed Problem Chronic kidney disease stage 3A (disorder) (406509967) Chronic kidney disease, stage 3a (N18.31) Active confirmed Plan Of Treatment Pending Test Test Name Order Date HIV 1/2 ANTIGEN/ANTIBODY,FOURTH GENERATI ON W/RFL (79701) 06/02/2022 CREATININE CLEARANCE (7943) 06/02/2022 ALBUMIN, RANDOM URINE W/CREATININE (6517 ) 06/02/2022 SODIUM WITH CREATININE, RANDOM URINE (85 14) 06/02/2022 PTH, INTACT AND CALCIUM (8837) CHLORIDE WITH CREATININE, RANDOM URINE ( 1645) 06/02/2022 COMPREHENSIVE METABOLIC PANEL (52938) URIC ACID (905) 06/02/2022 POTASSIUM W/O CREATININE, RANDOM URINE ( 82518) 06/02/2022 PROTEIN, TOTAL W/CREAT, 24 HOUR URINE (7 57) 06/02/2022 PROTEIN, TOTAL W/CREAT, RANDOM URINE (17 15) 06/02/2022 CBC (INCLUDES DIFF/PLT) (6399) URINALYSIS, COMPLETE W/REFLEX TO CULTURE (3020) 06/02/2022 SED RATE BY MODIFIED WESTERGREN (809) C-REACTIVE PROTEIN (4420) 06/02/2022 RHEUMATOID FACTOR (4418) 06/02/2022 COMPLEMENT COMPONENT C3C (351) COMPLEMENT COMPONENT C4C (353) ANCA SCREEN WITH REFLEX TO TITER (61159) 06/02/2022 COMPLEMENT, TOTAL (CH50) (618) ALEX SCREEN, IFA, W/REFL TITER AND PATTER N (249) 06/02/2022 DNA (DS) ANTIBODY (255) 06/02/2022 HEMOGLOBIN A1c (496) 06/02/2022 OSMOLALITY (U) (678) 06/02/2022 TSH (899) 06/02/2022 VITAMIN D,25-OH,TOTAL,IA (52925) 023 CRYOGLOBULIN (%CRYOCRIT), SERUM (49264) 06/02/2022 REFLEXIVE URINE CULTURE 06/02/2022
--- OUTSIDE RECORDS SUMMARY | 2025-02-07 10:39 | XMS_ITS | Encounter Summary ---
Author Organization [facility] Healthcare Address [address] [place] [address] Care Team Providers Care Product Safety Manager Name Role Phone Domingo Lazo MD Primary Care Provide r Encounter Details Date Type Department Care Team (Late st Contact Info) Description 12/27/2024 Results Follow-Up [facility] Diabetes Endocrine Care at [address] [place] [address] Holley Hoffman, COPYHOLDER [address] [facility] [address] [place] [address] Lipid panel, Albumin Creatinine Ratio, Urine Social History Tobacco Use Types Packs/Day Years Used Date Smoking Tobacco: Heavy Smoker Cigarettes 2 45 Smokeless Tobacco: Never Comments:Pt has a plan to de crease and quit Alcohol Use Standard Drinks/Week Comments Yes 0 (1 standard drink = 0.6 oz pur e alcohol) very little [facility] Utilities Answer Date Recorded In the past 12 months has [employer], gas, oil, or water [employer] threatened to shut off services in your home? No 08/30/2024 Social Connection and Isolation Panel Answer Date Recorded In a typical week, how many times do you talk on the phone with family, friends, or neighbors? Three times a week 08/30/2024 How often do you get togethe r with friends or relatives? Three times a week 08/30/2024 How often do you attend [facility] or yarsanism services? Never 08/30/2024 Do you belong to any clubs o r organizations such as yazidism groups, unions, fraternal or athletic groups, or [...] any time in the past [address] [facility], were you homeless or living in a fci (including now)? No 08/30/2024 Personal Safety Answer Date Recorded Have you ever been in or are you currently in a harmful physical or emotional relationship or is someone making you feel afraid or unsafe? 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
--- OUTSIDE RECORDS SUMMARY | 2025-02-07 10:39 | XMS_ITS | Encounter Summary ---
Author Organization [facility] Address [address] [place] [address] Care Team Providers Care Deposit Clerk Name Role Phone None, Provider Primary Care Provider Brandon cantor Encounter Details Date Type Department Care Team (Late st Contact Info) Description 08/20/2021 Prep for Procedure [facility] [place], [place] [id number] Juan Alberto Haji MD [address] [facility] [address] [place], [place] [id number] Social History Tobacco Use Types Packs/Day Years Used Date Smoking Tobacco: Every Day Cigarettes 2 40 Smokeless Tobacco: Never Sex and Gender Information Value Date Recorded Sex Assigned at Not on file Legal Sex Male 9:59 PM PODIATRIST Gender Identity Not on file Sexual Orientation Not on file COVID-19 Exposure Response Date Recorded In the last 10 days, have yo u been in contact with someone who was confirmed or suspected to have Coronavirus/COVID-19? No / Unsure 08/20/2021 5:29 AM CDT documented as of this encounter Functional Status * Calculated C-SSRS Risk Score (Lifetime/Recent) Answer Date of Assessment Author Status No Risk Indicated 08/20/2021 7:15 AM CDT Sandra Gurrola RN Active * [place] Suicide Severity Rating Scale (Screener/Recent Self-Report) Question Answer Date of Assessment Author Status 1. Wish to be (Past 1 Month) No 08/20/2021 7:15 AM CDT Nimisha Gurrola RN A ctive 2. Non-Specific Active Suicidal Thoughts (Past 1 Month) No 08/20/2021 7:15 AM CDT Nimisha Gurrola RN A ctive 6. Suicidal Behavior (Lifetime) No 08/20/2021 7:15 AM CDT Nimisha Gurrola RN A ctive documented as of this encounter Plan of Treatment Not on file documented as of this encounter Results * RESPIRATORY PCR PANEL 2 (08/19/2021 9:40 AM CDT) [facility] ADENOVIRUS PCR (RESP) NOT DETECTED NOT DETECTED 08/19/2021 11:47 AM CDT [facility] CORONAVIRUS 229E PCR (RESP) NOT DETECTED NOT DETECTED 08/19/2021 11:47 AM CDT [facility] CORONAVIRUS HKU1 PCR (RESP) NOT DETECTED NOT DETECTED 08/19/2021 11:47 AM CDT [facility] CORONAVIRUS NL63 PCR (RESP) NOT DETECTED NOT DETECTED 08/19/2021 11:47 AM CDT [facility] CORONAVIRUS OC43 PCR (RESP) NOT DETECTED NOT DETECTED 08/19/2021 11:47 AM CDT [facility] METAPNEUMOVIRUS PCR (RESP) NOT DETECTED NOT DETECTED 08/19/2021 11:47 AM CDT [facility] RHINOVIRUS/ENTEROV IRUS PCR (RESP) NOT DETECTED NOT DETECTED 08/19/2021 11:47 AM CDT [facility] INFLUENZA A PCR (RESP) NOT DETECTED NOT DETECTED 08/19/2021 11:47 AM CDT [facility] INFLUENZA B PCR (RESP) NOT DETECTED NOT DETECTED 08/19/2021 11:47 AM CDT [facility] PARAINFLUENZA 1 PCR (RESP) NOT DETECTED NOT DETECTED 08/19/2021 11:47 AM CDT [facility] PARAINFLUENZA 2 PCR (RESP) NOT DETECTED NOT DETECTED 08/19/2021 11:47 AM CDT [facility] PARAINFLUENZA 3 PCR (RESP) NOT DETECTED NOT DETECTED 08/19/2021 11:47 AM CDT [facility] PARAINFLUENZA 4 PCR (RESP) NOT DETECTED NOT DETECTED 08/19/2021 11:47 AM CDT [facility] RSV PCR (RESP) NOT DETECTED NOT DETECTED 08/19/2021 11:47 AM CDT [facility] B PARAPERTUSIS PCR (RESP) NOT DETECTED NOT DETECTED 08/19/2021 11:47 AM CDT [facility] BORDETELLA PERTUSSIS PCR (RESP) NOT DETECTED NOT DETECTED 08/19/2021 11:47 AM CDT [facility] CHLAMYDOPHILA PNEUMONIAE PCR (RESP) NOT DETECTED NOT DETECTED 08/19/2021 11:47 AM CDT [facility] MYCOPLASMA PNEUMONIAE PCR (RESP) NOT DETECTED NOT DETECTED 08/19/2021 11:47 AM CDT [facility] CORONAVIRUS SARS COV 2 PCR (RESP) NOT DETECTED NOT DETECTED 08/19/2021 11:47 AM CDT [facility] FIRST TEST NO 08/19/2021 10:44 AM T [facility] EMPLOYED IN HEALTHCARE NO 08/19/2021 10:44 AM T [facility] SYMPTOMATIC DEFINED BY CDC NO 08/19/2021 10:44 AM CDT [facility] HOSPITALIZATION STATUS NO 08/19/2021 10:44 AM CDT [facility] PATIENT IN ICU NO 08/19/2021 10:44 AM T [facility] RESIDENT OF [facility] NO 08/19/2021 10:44 AM CDT [facility] NASOPHARYNGEAL SWAB / Unknown 08/19/2021 9:40 AM CDT us Juan Alberto Haji MD MICROBIOLOGY - GENERAL ORDER KIRSTIN Final Result [facility] [address] [place] [address], [place] [phone] documented in this encounter Visit Diagnoses Diagnosis Preoperative testing- Primary Preoperative examination, unspecified documented in this encounter Care Teams Deposit Clerk Relationship Specialty Start Date End Date None, Provider, PCP - General 08/15/21 documented as of this encounter
--- OUTSIDE RECORDS SUMMARY | 2025-02-07 10:39 | XMS_ITS | Clinical Summary ---
Author Organization [facility] Address [address] [place] [address] Care Team Providers Care Job Foreman Name Role Phone None, Provider MD Primary Care Provider Unavaila ble Allergies Active Allergy Reactions Criticality Noted Date Comments Hydrocodone Itching Low 02/12/2020 Morphine Unknown 08/15/2021 DERIVATIVES Statins Other (see comment) High 11/23/2016 severe chest pains with all other statins besides Lipitor severe chest pains with all other statins besides Lipitor severe chest pains with all other statins besides Lipitor Medications semaglutide (OZEMPIC 0.25/0.5 MG/DOSE) 2 MG/1.5ML injection (PEN) Inject into the skin weekly. Active amitriptyline 25 MG tablet Take 1 tablet by mouth nightly. Active atorvastatin 40 MG tablet Take 40 mg by mouth daily. 08/12/2021 Active metoprolol succinate ER 50 MG 24 hr tablet Take 50 mg by mouth daily. 04/04/2021 Active lisinopril 20 MG tablet Take 20 mg by mouth daily. 07/10/2021 Active vitamin D2, ergocalciferol, (VITAMIN D, ERGOCALCIFEROL,) 41632 UNITS capsule weekly. Active HYDROcodone-acet aminophen 10-325 MG tablet Take 1 tablet by mouth 3 (three) times daily as needed. Active metFORMIN 1000 MG tablet Take 1,000 mg by mouth 2 (two) times a day. Active nitroglycerin 0.4 MG SL tablet as needed for Chest Pain. Active traZODone 50 MG tablet Take 1 tablet by mouth daily. Active albuterol sulfate HFA 108 (90 Base) MCG/ACT inhaler as needed. Act teresa furosemide 20 MG tablet daily. Active senna-docusate 8.6-50 MG tablet Take 1 tablet by mouth daily. 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 Gender Identity Not on file Sexual Orientation Not on file Last Filed Vital Signs Vital Sign Reading Time Taken Comments Blood Pressure 135/92 08/20/2021 3:10 PM CDT Pulse 79 08/20/2021 3:10 PM CDT Temperature 36.1 C (97 F) 08/20/2021 3:10 PM CDT Respiratory Rate 20 08/20/2021 3:10 PM CDT Oxygen Saturation 95% 08/20/2021 3:1 0 PM CDT ear pulsiox Inhaled Oxygen Concentration - - Weight 108.9 kg (240 lb 1.3 oz) 08/20/2021 7:12 AM CDT Height 180.3 cm (5' 11) 08/20/2021 7:1 2 AM CDT Body Mass Index 33.48 08/20/2021 7:12 AM CDT Plan of Treatment Health Maintenance Due Date Last Done Comments Colorectal Cancer Screening Colonoscopy (10 Years) 1960 Annual Physical 1964 Hepatitis C 1979 Zoster Vaccines (1 of 2) 2011 DTaP, Tdap and Td Vaccines ( 1 - Tdap) 10/14/2019 10/13/2019, 05/17/2009 Pneumococcal Vaccine: 50+ Years (2 of 2 - PCV) 03/14/2021 03/14/2020 COVID-19 Vaccine (1 - 2023-2 5 season) 2025 RSV Immunization or 60+ Years (1 - 1-dose 75+ series) 2036 Meningococcal B Vaccine Aged Out No l onger eligible based on patient's age to complete this topic Meningococcal Vaccine Aged Out No celestine brock eligible based on patient's age to complete this topic RSV Immunizations Under 20 Months Aged Out No longer eligible b ased on patient's age to complete this topic Insurance Advance Directives * Full Code (Latest Code Status on File) Date Activated Date Inactivated Comments 08/20/2021 2:06 PM 08/20/2021 5:53 PM Care Teams Job Foreman Relationship Specialty Start Date End Date None, Provider, PCP - General 08/15/21
--- OUTSIDE RECORDS SUMMARY | 2025-02-07 10:39 | XMS_ITS | Clinical Summary ---
Author Organization [facility] Address [address] [place] [address] Care Team Providers Care Event Marketing Intern Name Role Phone Joselito Lazo MD Primary Care Provider Allergies Active Allergy Reactions Criticality Noted Date Comments Gtfdmxg-Bia-Zbr Reductase Inhibitors Other (See Comments) 11/15/2018 severe chest pains with all other statins besides Lipitor Medications oxyCODONE-aceta minophen (PERCOCET) 10-325 mg Tablet Take 1 Tablet by mouth every 6 hours as needed for Pain or Pain, Severe. Active tamsulosin (FLOMAX) 0.4 mg capsule Take 0.4 mg by mouth daily. Active atorvastatin (LIPITOR) 40 mg tablet Take 40 mg by mouth daily at bedtime. Active metFORMIN (GLUCOPHAGE) 500 mg tablet Take 500 mg by mouth. Active aspirin (CORINNA) 325 mg tablet Take 325 mg by mouth daily. Active albuterol sulfate HFA 90 mcg/actuation aerosol inhaler 0 Active amitriptyline (ELAVIL) 25 mg tablet Take 12.5 mg by mouth daily at bedtime. Active cyclobenzaprine (FLEXERIL) 10 mg tablet Take 10 mg by mouth. Active ergocalciferol (VITAMIN D2) 50,000 unit capsule weekly. Active ferrous sulfate 325 mg (65 mg iron) tablet Take 325 mg by mouth daily. 3 Active lisinopriL (PRINIVIL) 20 mg tablet Take 20 mg by mouth daily. 2 Active metoprolol succinate (TOPROL XL) 100 mg Extended Release 24 hour tablet Take 100 mg by mouth daily. Active nitroglycerin (NITROSTAT) 0.4 mg Tablet, Sublingual Place 0.4 mg under tongue. Active ondansetron (ZOFRAN ODT) 4 mg Tablet, Rapid Dissolve Take 4 mg by mouth. 3 Active semaglutide 0.25 mg or 0.5 mg(2 mg/1.5 mL) Pen Injector Inject by subcutaneous injection. Active traZODone (DESYREL) 50 mg tablet 0 Active Active Problems Problem Noted Date Diagnosed Date Lung nodule 08/25/2018 Type 2 diabetes mellitus wit hout complication, without long-term current use of insulin 08/25/2018 Benign hypertension 08/25/2018 Hyperlipidemia 08/25/2018 Tobacco use 08/25/2018 Family History Medical History Relation Name Comments No Known Problems Father Breast Cancer Mother Heart Disease Mother Other Mother No Known Problems Sister 1 No Known Problems Sister 2 No Known Problems Sister 3 Relation Name Status Comments Brother 1 Alive Brother 2 Alive Daughter 1 Alive Daughter 2 Alive Daughter 3 Alive Daughter 4 Alive Father Mother Alive Sister 1 Alive Sister 2 Alive Sister 3 Alive Sister 4 Alive Sister 5 Alive Social History Tobacco Use Types Packs/Day Years Used Date Smoking Tobacco: Every Day Cigarettes 2 44 Tobacco Cessation:Ready to Q uit: Not Asked; Counseling Given: Not Answered Comments:tried patch made him dizzy Alcohol Use Standard Drinks/Week Comments Yes 0 (1 standard drink = 0.6 oz pur e alcohol) Financial Resource Strain Answer Date R ecorded How hard is it for you to pa y for the very basics like food, housing, medical care, and heating? Not hard at all 08/25/2018 Food Insecurity Answer Date Recorded Within the past 12 months, y ou worried that your food would run out before you got the money to buy more. Patient declined Within the past 12 months, t he food you bought just didn't last and you didn't have money to get more. Patient declined 03/2019 Transportation Needs Answer Date Record ed In the past 12 months, has l ack of transportation kept you from medical appointments or from getting medications? Patient declined 08/25/2018 In the past 12 months, has l ack of transportation kept you from meetings, work, or from getting things needed for daily living? Patient declined 08/25/2018 Sex and Gender Information Value Date Recorded Sex Assigned at Not on file Legal Sex Male 12:01 PM CDT Gender Identity Not on file Sexual Orientation Not on file Occupation Industry Job Start Date Job End Date retired Not on file Not on file Not on file Last Filed Vital Signs Vital Sign Reading Time Taken Comments Blood Pressure 116/76 10/08/2022 9:07 AM CDT Pulse 85 10/08/2022 9:07 AM CDT Temperature 36.4 C (97.5 F) 10/08/2022 9:07 AM CDT Respiratory Rate 10 10/08/2022 9:07 AM CDT Oxygen Saturation 98% 10/08/2022 9:07 AM CDT Inhaled Oxygen Concentration - - Weight 108.4 kg (239 lb) 10/08/2022 9:07 AM CDT Height 180.3 cm (5' 11) 11/15/2018 1:28 PM CDT Body Mass Index 33.33 11/15/2018 1:28 PM CDT Plan of Treatment Health Maintenance Due Date Last Done Comments DIABETES ANNUAL FOOT EXAM 1979 DIABETES ANNUAL RETINAL EXAM 1979 DIABETES MICROALBUMIN ANNUAL SCREEN 1979 LDL CHOLESTEROL ANNUAL 1979 DTAP/TDAP/TD VACCINES (1 - Tdap) 1980 FIT-DNA Q 3 years 2006 FIT/FOBT Q 1 year 2006 Flex Sig/CT Colonography Q 5 years 2006 ZOSTER VACCINE (1 of 2) 2011 RSV VACCINE (60+ or ) (1 - Risk 60-74 years 1-dose series) 2021 COLORECTAL SCREENING 03/21/2022 03/21/2012 Colorectal Cancer Screening 03/21/2022 DIABETES HBA1C Q 6 MONTHS 11/26/2022 05/29/2022 INFLUENZA VACCINE (#1) 2024 04/03/2013 Insurance Member Subscriber Plan / Payer (Ef fective 2022-Present) Name:Vivek Sanon Relation to Subscriber:Self Name:Vivek Sanon Payer ID:[id number] (NAIC) Type:PPO Address: [place] [id number] Care Teams Event Marketing Intern Relationship Specialty Start Date End Date Joselito Lazo MD PCP - General Internal Medicine 08/09/18
--- OUTSIDE RECORDS SUMMARY | 2025-02-07 10:40 | XMS_ITS | Clinical Summary ---
Author Organization [facility] Address [address] [place] [address] Care Team Providers Care Medical Corps Officer Name Role Phone Joselito Lazo MD Primary Care Provider Source Comments [facility],non-owned Affiliates and Associated Physician Practices is amultiple site organization consisting of ambulatory clinics and hospital sitesin [place] and [place]. This disclosure is being madepursuant to the Care Everywhere program and may not contain all information available regarding this patient. Last updated 18.[facility] Allergies No known active allergies Medications * Be aware that medications may not be up to date on this document. Alwaysverify current medications with the patient. metFORMIN (GLUCOPHAGE) 500 MG tablet Take 500 mg by mouth 2 times daily with morning and evening meal Active cyclobenzaprine (FLEXERIL) 5 MG tablet TK 1 T PO TID PRN 1 9 Active oxyCODONE-aceta minophen (PERCOCET) 10-325 MG tablet TK 1 T PO Q 6 H PRN 0 9 Active tamsulosin (FLOMAX) 0.4 MG capsule Take 0.4 mg by mouth once daily 9 Active amitriptyline (ELAVIL) 25 MG tablet TK 1 T PO QD 1 9 Active aspirin (ASPIRIN) 325 MG tablet Take 325 mg by mouth once daily Active atorvastatin (LIPITOR) 40 MG tablet Take 40 mg by mouth Active carvedilol (COREG) 12.5 MG tablet carvedilol 12.5 mg tablet bid 9 Active Active Problems Problem Noted Date Diagnosed Date NAFLD (nonalcoholic fatty liver disease) 019 Overview (03/09/2019): 03/07/19 Fibroscan CAP 380, E 12.9 kPa Social History Tobacco Use Types Packs/Day Years Used Date Smoking Tobacco: Every Day Cigarettes 2 40 Smokeless Tobacco: Never Tobacco Cessation:Ready to Q uit: No; Counseling Given: Yes Sex and Gender Information Value Date Recorded Sex Assigned at Not on file Legal Sex Male 5:10 AM CDT Gender Identity Not on file Sexual Orientation Not on file Last Filed Vital Signs Vital Sign Reading Time Taken Comments Blood Pressure 157/94 03/07/2019 8:05 AM CDT Pulse 84 03/07/2019 8:05 AM CDT Temperature 37 C (98.6 F) 03/07/2019 8:05 AM CDT Respiratory Rate 18 03/07/2019 8:05 AM CDT Oxygen Saturation 99% 03/07/2019 8:05 AM CDT Inhaled Oxygen Concentration - - Weight 114 kg (251 lb 4.8 oz) 03/07/2019 8:05 A M CDT Height 180.3 cm (5' 11) 03/07/2019 8:05 AM CDT Body Mass Index 35.05 03/07/2019 8:05 AM CDT Plan of Treatment Health Maintenance Due Date Last Done Comments COLOGUARD (AGES 45-75) - COL ON CA SCREENING 1961 COLON MONITORING 1961 COLONOSCOPY - COLON CA SCREENING 1961 CT COLONOGRAPHY - COLON CA SCREENING 1961 Colorectal Cancer Screening 1961 FIT - COLON CA SCREENING 1961 FLEX SIG - COLON CA SCREENING 1961 HIV SCREENING 1976 DTAP/TDAP/TD VACCINES (1 - Tdap) 1980 LUNG CANCER SCREENING 2011 PNEUMOCOCCAL VACCINE 50+ (1 of 1 - PCV) 2011 ZOSTER VACCINE (1 of 2) 2011 SCREENING FOR DIABETES 02/16/2022 9, 09/13/2018 DEPRESSION SCREENING 05/17/2024 COVID-19 VACCINE (1 - 4-2 5 season) 2025 INFLUENZA VACCINE (#1) 2025 0, 04/03/2013 Respiratory Syncytial Virus (RSV) Vaccine Pt: or over 60 yrs (1 - 1-dose 75+ series) 2036 HEPATITIS C SCREENING Completed 09/13/2018 HEPATITIS B VACCINE Aged Out No longe r eligible based on patient's age to complete this topic HIB VACCINE Aged Out No longer eligi ble based on patient's age to complete this topic HPV VACCINE Aged Out No longer eligi ble based on patient's age to complete this topic MENINGOCOCCAL (Group B) VACCINE SHARED DECISION-MAKING Aged Out No longer eligible based on patient's age to complete this topic MENINGOCOCCAL GROUPS A/C/Y/W VACCINE Aged Out No longer eligible b ased on patient's age to complete this topic Goals Goal Patient Goal Type Associated Problems Recent Progress Patient-Stated? Author Medication Management General On track( 019 8:27 AM CDT) Frnak Real, RN Note: Expected end date: Interventions: Take all medications as prescribed Let your doctor know right away about any changes in your medications Make sure to request a refill of your medication at least one week prior to your last dose Procedures Procedure Name Priority Date/Time Associated Diagnosis Comments HEMOGLOBIN A1C (EXTERNAL RESULT ENTRY) Routine 02/16/2019 8:48 AM CDT HEPATITIS C ANTIBODY Routine 09/13/2018 2:30 PM CDT NAFLD (nonalcoholic fatty liver disease) from Last 3 Months or Most Recently Relevant to Health Maintenance Results * HEMOGLOBIN A1C (EXTERNAL RESULT ENTRY) (02/16/2019 8:48 AM CDT) Hemoglobin A1c (EXTERNAL RESULT) 8.2 <5.7 % Blood BLOOD SPECIMEN / Unknown 02/16/2019 8:48 AM CDT us Historical Provider LAB - CHEMISTRY ORDERABLE S Edited Result - Final * HEPATITIS C ANTIBODY (09/13/2018 2:30 PM CDT) Hepatitis C Antibody Non-react teresa harris 09/13/2018 3:36 PM CDT [facility] Comment: Hepatitis C Antibody screen indicates no serologic evidence of past or current infection with Hepatitis C Virus. Patients with unexplained liver disease who are immunocompromised or suspected of having acute Hepatitis C infection may benefit from Nucleic Acid Test ([facility]) for Hepatitis C Viral RNA to confirm Hepatitis C status. Blood BLOOD SPECIMEN / Unknown Lab Venipuncture / Unknown 09/13/2018 2:30 PM CDT 09/13/2018 2:49 PM CDT us Garfield Johnston MD LAB - CHEMISTRY ORDERAB LES Final Result Performing Organization Address City/State/[facility] Co de Phone Number [address] [phone] from Last 3 Months or Most Recently Relevant to Health Maintenance Insurance [facility] MANAGED MEDICARE ADV Care Teams Medical Corps Officer Relationship Specialty Start Date End Date Joselito Lazo MD [address] [address] PCP - General Internal Medicine 08/04/18
== END 2025-02-07 09:51 | disposition home or self-care (01) ==
PROVIDERS: PCP Internal Medicine; Visit Provider Internal Medicine
DX: M79.605 Pain in left leg (principal)
CPT/HCPCS: 93971

== ENCOUNTER 2025-03-22 10:10 | Emergency (ER) | payer MEDICARE, SELFPAY ==
--- OUTSIDE RECORDS SUMMARY | 2024-04-28 09:00 | XMS_ITS ---
Author Organization [facility] Office Address [address] [facility] [address] [facility] [address] [place] [address] Care Team Providers Care Kid Club Attendant Name Role Phone Madhav Villa Unavailable [phone] Social History Sex Assigned At : Social History Observation Description Sex Assigned At Male Encounters Encounter Location Date Provider Diagnosis [place] [facility] [address] [facility] 15 [place] [address] 04/28/2024 Madhav Villa Plan Of Treatment Next Appt Details Provider Name:Madhav Villa , 04/06/2025 01:00:00 PM, 20[address] [facility] [address], [address], Progress Notes * WAQAS FLORENCEDOB:1960 (64 yo M)Acc No.[id number]:04/28/2024 Progress Notes Patient: WAQAS DELCID Provider: Calli DOWNS MD, UniqueC.P, F.A.S.N. :1960 A ge:63 Y S ex:Male Date:04/28/2024 Address:[address] [place] [address] Subjective: * Chief Complaints: * * Medical History: Objective: * Vitals: Assessment: Plan: * Treatment: * Billing Information: * Visit Code: * Procedure Codes: * Electronic signature of Letitia Villa MD on 03/22/2025 at 06:28 PM SERVER SOFTWARE ENGINEER Sign off status: Pending * Provider: Calli DOWNS MD, Richar.Abelardo.C.P, F.A.S.N. Date: 06/29/2023 Generated for Printing/Faxing/eTransmitting on: 05/22/2024 06:28 PM SERVER SOFTWARE ENGINEER
--- OUTSIDE RECORDS SUMMARY | 2024-08-16 13:45 | XMS_ITS ---
Author Organization [facility] Office Address [address] [facility] 61 [facility] [address] [place] [address] Care Team Providers Care Structural Architect Name Role Phone Madhav Villa Unavailable [phone] Social History Sex Assigned At : Social History Observation Description Sex Assigned At Male Encounters Encounter Location Date Provider Diagnosis [place] Office [address]43 [facility] 15 [place] [address] 08/16/2024 Madhav Villa Plan Of Treatment Next Appt Details Provider Name:Madhav Villa , 04/06/2025 01:00:00 PM, [address] [facility] [address], [address], Progress Notes * WAQAS FLORENCEDOB:1960 (64 yo M)Acc No.[id number]:08/16/2024 Progress Notes Patient: WAQAS DELCID Provider: Calli DOWNS MD, UniqueC.P, F.A.S.N. :1960 A ge:64 Y S ex:Male Date:08/16/2024 Address:[address] [place] [address] Subjective: * Chief Complaints: * * Medical History: Objective: * Vitals: Assessment: Plan: * Treatment: * Billing Information: * Visit Code: * Procedure Codes: * Electronic signature of Letitia Villa MD on 03/22/2025 at 06:28 PM WHEEL AND PINION INSPECTOR Sign off status: Pending * Provider: Calli DOWNS MD, Richar.Abelardo.C.P, F.A.S.N. Date: 08/16/2024 Generated for Printing/Faxing/eTransmitting on: 1 05/22/2024 06:28 PM WHEEL AND PINION INSPECTOR
--- OUTSIDE RECORDS SUMMARY | 2024-09-01 09:00 | XMS_ITS ---
Author Organization [facility] Office Address [address] [facility] [address] [facility] [address] [place] [address] Care Team Providers Care School Bus Monitor Name Role Phone Madhav Villa Unavailable [phone] Social History Sex Assigned At : Social History Observation Description Sex Assigned At Male Encounters Encounter Location Date Provider Diagnosis [place] [facility] 2043 [facility] 15 [place] [address] 09/01/2024 Madhav Villa Plan Of Treatment Next Appt Details Provider Name:Madhav Villa , 04/06/2025 01:00:00 PM, [address]43 [facility] [address], [address], Progress Notes * WAQAS FLORENCEDOB:1960 (64 yo M)Acc No.[id number]:09/01/2024 Progress Notes Patient: WAQAS DELCID Provider: Calli DOWNS MD, UniqueC.P, F.A.S.N. :1960 A ge:64 Y S ex:Male Date:09/01/2024 Address:[address] [place] [address] Subjective: * Chief Complaints: * * Medical History: Objective: * Vitals: Assessment: Plan: * Treatment: * Billing Information: * Visit Code: * Procedure Codes: * Electronic signature of Letitia Villa MD on 03/22/2025 at 06:28 PM RIGGING ENGINEER Sign off status: Pending * Provider: Calli DOWNS MD, Richar.Abelardo.C.P, F.A.S.N. Date: 09/01/2024 Generated for Printing/Faxing/eTransmitting on: 1 05/22/2024 06:28 PM RIGGING ENGINEER
--- OUTSIDE RECORDS SUMMARY | 2024-09-22 09:00 | XMS_ITS ---
Author Organization [facility] Office Address [address] [facility] 61 [facility] [address] [place] [address] Care Team Providers Care High Lift Mule Operator Name Role Phone Madhav Villa Unavailable [phone] Social History Sex Assigned At : Social History Observation Description Sex Assigned At Male Encounters Encounter Location Date Provider Diagnosis [place] Office [address]43 [facility] 15 [place] [address] 09/22/2024 Madhav Villa Plan Of Treatment Next Appt Details Provider Name:Madhav Villa , 04/06/2025 01:00:00 PM, [address] [facility] [address], [address], Progress Notes * WAQAS FLORENCEDOB:1960 (64 yo M)Acc No.[id number]:09/22/2024 Progress Notes Patient: WAQAS DELCID Provider: Calli DOWNS MD, UniqueC.P, F.A.S.N. :1960 A ge:64 Y S ex:Male Date:09/22/2024 Address:[address] [place] [address] Subjective: * Chief Complaints: * * Medical History: Objective: * Vitals: Assessment: Plan: * Treatment: * Billing Information: * Visit Code: * Procedure Codes: * Electronic signature of Letitia Villa MD on 03/22/2025 at 06:28 PM FISH SMOKER Sign off status: Pending * Provider: Calli DOWNS MD, Richar.Abelardo.C.P, F.A.S.N. Date: 09/22/2024 Generated for Printing/Faxing/eTransmitting on: 1 05/22/2024 06:28 PM FISH SMOKER
--- NOTE | ~2025-03-22 | XR_ITS ---
EXAMINATION: XR chest 2V, 03/22/2025 11:15 PRICING ASSOCIATE HISTORY: chest pain/SOB COMPARISON: No comparisons available. Technique: 2 views obtained. Findings: The lungs are clear, no effusion. No pneumothorax. Heart is normal size. Mediastinal and hilar contours are within normal limits. Bony thorax no acute abnormality. Impression: No acute cardiopulmonary abnormality. Reviewed, dictated and finalized at location P. ING ASSOCIATE Impression: No acute cardiopulmonary abnormality.
--- NOTE | 2025-03-22 10:12 | ECG_ITS ---
Test Date: 2025-03-22 10:19:46 Measurements Intervals [place] Rate: 97 P: 47 NM: 188 QRS: -65 QRSD: 114 T: 79 QT: 344 QTc: 438 Interpretive Statements SINUS RHYTHM POSSIBLE LEFT ATRIAL ENLARGEMENT [-0.1mV P-WAVE IN V1/V2] LEFT ANTERIOR FASCICULAR BLOCK [QRS AXIS <= -45, QR IN I, RS IN II] LEFT VENTRICULAR HYPERTROPHY AND ST-T CHANGE [VOLTAGE CRITERIA PLUS ST/T ABNORMALITY] POSSIBLE ANTEROSEPTAL MYOCARDIAL INFARCTION , OF INDETERMINATE AGE [30 ms Q WAVE IN V1-V4] No previous ECG available for comparison Electronically Signed On 03-22-2025 11:30:25 REFERENCE AND INSTRUCTION LIBRARIAN by Arvind Canada M.D.
[2025-03-22 10:13] VITALS: BP 159/86; PULSE 94; RESP 19; TEMP 36.5; O2SAT 97
[2025-03-22 10:34] LABS: Hematocrit 44.0 % (42.0-52.0); Hemoglobin 15.3 g/dL (14.0-18.0); Immature Granulocyte Percent A 0.9 % (0-0.5); Lymphocytes Absolute Auto 1.82 K/mm3 (0.9-3.2); Mean Corpuscular HGB Conc 34.8 g/dl (32-36); Mean Corpuscular Hemoglobin 30.5 pg (26-34); Mean Corpuscular Volume 87.8 fl (80-100); Nucleated Red Blood Cells Absolute Auto 0.000 K/mm3 (0.0-0.012); Nucleated Red Blood Cells Perc 0.0 % (0.0-0.2); Platelet Count Result 282 k/mm3 (150-375); Red Blood Count 5.01 M/mm3 (4.6-6.20); White Blood Count 10.8 K/mm3 (4.5-10.0)
--- NOTE | 2025-03-22 10:36 | PC.NURSE ---
Ambulatory outside to smoke.
[2025-03-22 10:51] LABS: INR 1.0; Prothrombin Time 13.1 Seconds (11.1-14.7)
[2025-03-22 10:52] LABS: Partial Thromboplastin Time 23.2 Seconds (22.3-36.8)
[2025-03-22 10:59] LABS: Alanine Aminotransferase 43 U/L (6-50); Albumin Level 4.1 g/dL (3.5-5.1); Alkaline Phosphatase 56 U/L (38-126); Anion Gap 8 mmol/L (4-12); Aspartate Amino Transferase 36 U/L (17-59); Bilirubin,Total 0.5 mg/dL (0.2-1.3); Blood Urea Nitrogen 18 mg/dL (9-20); Calcium 9.0 mg/dL (8.4-10.2); Carbon Dioxide 25 mmol/L (22-30); Chloride 99 mmol/L (98-107); Estimated CRCL calculation 93 ml/min; Estimated Glomerular Filt Rate > 60; Glucose 330 mg/dL (65-110); Lipase 98 U/L (23-300); Potassium 4.1 mmol/L (3.4-5.0); Sodium 132 mmol/L (137-145); Total Protein 6.7 g/dL (6.3-8.2)
[2025-03-22 11:06] LABS: Troponin I 0.013 ng/mL (0.000-0.034)
[2025-03-22 12:45] VITALS: BP 137/85; PULSE 97; RESP 16; O2SAT 97; O2SAT 98
--- NOTE | 2025-03-22 13:18 | ED_ITS ---
HPI - Chest Pain General Chief Complaint: Chest Pain Stated Complaint: CHEST PAIN Time Seen by Provider: 03/22/25 12:52 Source: patient Mode of arrival: ambulatory Limitations: no limitations History of Present Illness HPI narrative: This is a 64-year-old male with history of CAD status post stents x3, hypertension, diabetes who presents the ED for chest pain. Patient states for the past 6 days he has been having intermittent left sided chest stabbing sensation. He states that he gets it a couple times an hour and last for about a minute at a time before self-resolving. He called his curing room supervisor about this and they changed his cholesterol medication but he has not started that yet. He states that he had the pain again today so he called his curing room supervisor who advised him to come to the ED. Denies shortness of breath, nausea vomiting, diaphoresis. He does note that he has had some diarrhea for the last few days. Related Data Home Medications ?Medication ?Instructions ?Recorded ?Confirmed ?Last Taken ?Type aspirin 81 mg tablet,delayed 81 mg PO DAILY 03/05/21 1 03/24/21 History release nitroglycerin 0.4 mg sublingual 0.4 mg sublingual Q5M PRN Chest 03/05/21 02/28/25 Unknown History tablet Pain oxycodone-acetaminophen 10 mg-325 1 tablet PO Q8H PRN 12/25/21 02/28/25 Unknown History mg tablet furosemide 20 mg tablet 10 mg PO QAM 03/01/24 Unknown History lisinopril 10 mg tablet 10 mg PO DAILY 03/01/2402/14 Unknown History metformin 500 mg tablet 1,000 mg PO BID 03/01/24 Unknown History metoprolol succinate 100 mg mg PO 03/01/24 02/28/25 Un known History tablet,extended release 24 hr Allergies Allergy/AdvReac Type Severity Reaction Status Date / Time No Known Allergies Allergy Verified 03/22/25 12:52 Review of Systems 2 Review of Systems: Gen.: Denies fevers or chills Eyes: Denies eye pain or visual change ENT: Denies congestion Respiratory: Denies shortness of breath or cough CV: As per HPI GI: As per HPI denies burning, urgency, frequency or hematuria Musculoskeletal: Denies back pain or muscle pain Neuro: Denies numbness, tingling, weakness or focal weakness Skin: Denies rash Except as documented, all other systems reviewed and negative [facility] Past Medical History Medical History Chest pain Diarrhea Tobacco abuse Adenomatous colon polyp Colon cancer screening Fatty liver Elevated liver enzymes Diabetes COPD (chronic obstructive pulmonary disease) Tonsillectomy planned Cholecystectomy planned Sleep apnea Hypertension Neuropathy Hyperlipidemia Hypertriglyceridemia Surgical History Surgical History History of appendectomy History of cardiovascular surgery Family History Family History Mother Family history of malignant neoplasm of breast in first degree relative Social History Social History Smoking packs per day: 1.5 Smoking cigarettes per day: 30.0 Years smoked: 40 Smoking pack-years: 60.00 Smoking status: Current every day smoker Tobacco type: cigarettes Alcohol intake: never Substance use: never Substance use type: does not use Living arrangements: with family Spiritual care concerns: No Exam 2 Narrative: APPEARANCE: No acute distress, nontoxic, resting in bed EYES: EOMI HEENT: Normocephalic, atraumatic, OMM RESPIRATORY: No respiratory distress Clear to auscultation bilaterally with no rhonchi wheezing or rales. CARDIOVASCULAR: Regular rate and rhythm without murmurs rubs or gallops. ABDOMINAL: Obese. Soft, nontender, nondistended, no rebound or guarding MUSCULOSKELETAl: Moves all extremities. No clubbing, cyanosis or edema. NEURO: Awake and alert. Following commands, speech normal, no focal deficits SKIN:: Warm, dry. No rashes lesions or abrasions PSYCHIATRIC: Normal affect/mood, Course Vital Signs Vital signs: Vital Signs Temperature 97.7 F 03/22/25 10:13 Pulse Rate 94 03/22/25 10:13 Respiratory Rate 19 03/22/25 10:13 Blood Pressure 159/86 H 03/22/25 10:13 Pulse Oximetry 97 03/22/25 10:13 Oxygen Delivery Room Air 03/22/25 10:13 Temperature 97.7 F 03/22/25 10:13 Pulse Rate 105 H 03/22/25 13:30 Respiratory Rate 16 03/22/25 13:30 Blood Pressure 134/77 03/22/25 13:30 Pulse Oximetry 96 03/22/25 13:30 Oxygen Delivery Room Air 03/22/25 12:45 MDM - Chest Pain MDM Narrative Medical decision making narrative: 64-year-old male Presenting for chest pain. On initial evaluation patient was in no acute distress afebrile, hemodynamic stable. Differentials include but are not limited to: ACS, PE, PNA, bronchitis, costochondritis, pleurisy, viral syndrome, GERD Notable exam findings: Heart and lungs clear. Abdomen soft nontender. Notable lab findings: Mild leukocytosis at 10.8 without neutrophilic predominance. Mild hyponatremia 132. Hyperglycemic to 330. Lipase within normal limits. Troponin negative. Repeat troponin negative. EKG showed no concerning findings. Notable imaging findings: Chest x-ray showed no acute abnormalities. Patient remained asymptomatic throughout his ED course. Patient's EKGs and labs are without significant high risk changes. Cardiac risk factors reviewed. Patient is felt likely low risk for ACS and reasonable for further risk stratification testing as an outpatient. Pain was not sudden or maximal in onset without tearing or ripping quality. No other signs of symptoms suggest aortic dissection. No pneumonia seen on evaluation today. Patient is felt to be a reasonable candidate for continued evaluation as an outpatient. Patient was deemed appropriate for discharge at this time. Patient was advised follow-up with his curing room supervisor next week for re-evaluation. Patient was advised follow- up with their PCP in the next week for re-evaluation. Patient was agreeable to this plan. Given strict return precautions. Medical Records Data Attestation: I reviewed the patient's medical records. Lab Data Attestation: I reviewed the patient's lab results. 03/22/25 10:23 03/22/25 10:23 Labs: Lab Results 03/22/25 03/22/25 Range/Units 10:23 13:19 WBC 10.8 H (4.5-10.0) K/mm3 RBC 5.01 (4.6-6.20) M/mm3 Hgb 15.3 (14.0-18.0) g/dL Hct 44.0 (42.0-52.0) % MCV 87.8 (80-100) fl MCH 30.5 (26-34) pg MCHC 34.8 (32-36) g/dl RDW 12.6 (11.5-14.5) % Plt Count 282 (150-375) k/mm3 MPV 9.0 (7.4-10.4) fl Immature Gran % (Auto) 0.9 H (0-0.5) % Neut % (Auto) 69.7 (45.5-73.1) % Lymph % (Auto) 16.8 L (18.3-44.2) % Cedar % (Auto) 9.1 H (2.6-8.5) % Eos % (Auto) 3.0 (0-4.4) % Baso % (Auto) 0.5 (0.2-1.2) % Lymph # (Auto) 1.82 (0.9-3.2) K/mm3 Cedar # (Auto) 1.0 H (0.1-0.6) K/mm3 Eos # (Auto) 0.3 (0-0.3) K/mm3 Baso # (Auto) 0.1 (0.0-0.1) K/mm3 Abs Immat Gran (auto) 0.10 H (0.00-0.031) K/mm3 Absolute Neuts (auto) 7.5 H (1.3-6.7) K/mm3 Absolute Nucleated RBC 0.000 (0.0-0.012) K/mm3 Nucleated RBC % 0.0 (0.0-0.2) % PT 13.1 (11.1-14.7) Seconds INR 1.0 APTT 23.2 (22.3-36.8) Seconds Sodium 132 L (137-145) mmol/L Potassium 4.1 (3.4-5.0) mmol/L Chloride 99 (98-107) mmol/L Carbon Dioxide 25 (22-30) mmol/L Anion Gap 8 (4-12) mmol/L BUN 18 (9-20) mg/dL Creatinine 0.90 (0.7-1.3) mg/dL Estim Creat Clear Calc 93 ml/min Estimated GFR > 60 (59 - ) Glucose 330 H (65-110) mg/dL Calcium 9.0 (8.4-10.2) mg/dL Total Bilirubin 0.5 (0.2-1.3) mg/dL AST 36 (17-59) U/L ALT 43 (6-50) U/L Alkaline Phosphatase 56 (38-126) U/L Troponin I 0.013 < 0.012 (0.000-0.034) ng/mL Total Protein 6.7 (6.3-8.2) g/dL Albumin 4.1 (3.5-5.1) g/dL Lipase 98 (23-300) U/L Imaging Data Attestation: I personally reviewed and interpreted this imaging study as follows: My impression: Chest x-ray: Normal cardiac silhouette, no consolidations, no pleural effusions, no pulmonary vascular congestion Radiologist's impression: Impressions Chest X-Ray 03/22/25 11:37 Impression: No acute cardiopulmonary abnormality. ECG Data EKG #1: Attestation: I personally reviewed and interpreted this ECG as follows: ECG completion date: 03/22/25 ECG completion time: 10:19 Interpretation: Normal sinus rhythm rate of 97, left anterior fascicular block left ventricular hypertrophy, nonspecific T-wave change, no ST changes EKG #2: Attestation: I personally reviewed and interpreted this ECG as follows: ECG completion date: 03/22/25 ECG completion time: 13:44 Interpretation: Normal sinus rhythm rate 92, left atrial enlargement, left axis deviation, left anterior fascicular block, Q-waves in anterior leads. No acute ST or T changes Discharge Plan Discharge Clinical Impression: Chest pain, Hyperglycemia Patient Disposition: Home Condition: Stable Instructions: Antibiotic Form, Chest Pain (ED) Additional Instructions: Lab work and imaging showed no evidence of cardiac damage at this time. Follow- up with your curing room supervisor in the next week for re-evaluation. Follow up with your PCP in the next week for reevaluation. Return to the ED for new or worsening symptoms. Patient Language: Armenian Prescriptions: No Action aspirin 81 mg tablet,delayed release (DR/EC) 81 mg PO DAILY nitroglycerin 0.4 mg tablet, sublingual 0.4 mg sublingual Q5M PRN (Reason: Chest Pain) Rx Instructions: do not exceed 3 doses per episode trazodone 100 mg tablet 100 mg PO QHS 90 Days Qty: 90 0RF oxycodone-acetaminophen 10-325 mg tablet 1 tablet PO Q8H PRN furosemide 20 mg tablet 10 mg PO QAM lisinopril 10 mg tablet 10 mg PO DAILY albuterol sulfate [Ventolin HFA] 90 mcg/actuation HFA aerosol inhaler 1 - 2 inh inhalation Q4-6H PRN (Reason: shortness of breath or wheezing) 90 Days Qty: 54 2RF metformin 500 mg tablet 1,000 mg PO BID metoprolol succinate 100 mg tablet extended release 24 hr PO Follow-up/Referrals: Clifton,MD Joselito [Primary Care Provider, Unknown]
[2025-03-22 13:30] VITALS: BP 134/77; PULSE 105; RESP 16; O2SAT 96
--- NOTE | 2025-03-22 13:41 | ECG_ITS ---
Test Date: 2025-03-22 13:44:37 Measurements Intervals [place] Rate: 92 P: 26 [place]: 174 QRS: -67 QRSD: 108 T: 73 QT: 329 QTc: 409 Interpretive Statements SINUS RHYTHM POSSIBLE LEFT ATRIAL ENLARGEMENT [-0.1mV P-WAVE IN V1/V2] LEFT ANTERIOR FASCICULAR BLOCK [QRS AXIS <= -45, QR IN I, RS IN II] LEFT VENTRICULAR HYPERTROPHY AND ST-T CHANGE [VOLTAGE CRITERIA PLUS ST/T ABNORMALITY] POSSIBLE ANTEROSEPTAL MYOCARDIAL INFARCTION , OF INDETERMINATE AGE [30 ms Q WAVE IN V1-V4] Compared to ECG 03/22/2025 10:19:46 No significant changes Electronically Signed On 03-22-2025 14:58:43 PATTERN CHART WRITER by Arvind Canada M.D.
[2025-03-22 13:47] LABS: Troponin I < 0.012 ng/mL (0.000-0.034)
--- OUTSIDE RECORDS SUMMARY | 2025-03-22 18:28 | XMS_ITS | Encounter Summary ---
Author Organization [facility] Address [address] [place] [address] Phone Care Team Providers Care Telecommunications Field Engineer Name Role Phone Joselito Lazo MD Primary Care Provider Encounter Details Date Type Department Care Team (Late st Contact Info) Description 2022 Transcribe Orders [facility] Preop/Pacu II [address] [place] [address] Dhruv Troncoso MD [address] [place] [address], [address] [place] [address] Pre-op testing (Primary Dx) Social History Tobacco [...] Coronavirus/COVID-19? No / Unsure 2022 11:16 AM GRADUATE STUDIES DEAN documented as of this encounter Plan of Treatment Not on file documented as of this encounter Results * TYPE & SCREEN (CROSSMATCH CONVERTIBLE) (06/03/2022 7:54 AM GRADUATE STUDIES DEAN) ABO TYPING O 06/03/2022 9:36 AM GRADUATE STUDIES DEAN [facility] RH Positive 06/03/2022 9:36 AM GRADUATE STUDIES DEAN [facility] ABSC Negative 06/03/2022 9:36 AM GRADUATE STUDIES DEAN [facility] Blood Venipuncture / Unknown 06/03/2022 7:54 AM GRADUATE STUDIES DEAN 06/03/2022 8:24 AM GRADUATE STUDIES DEAN us Dhruv Troncoso MD BLOOD BANK ORDERABLES Ed ited Result - Final [facility] [place] [address] documented in this encounter Visit Diagnoses Diagnosis Pre-op testing- Primary Preoperative examination, unspecified documented in this encounter Additional Health Concerns Infection Onset Date Last Indicated Resolved Time 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
--- OUTSIDE RECORDS SUMMARY | 2025-03-22 18:28 | XMS_ITS | Patient Health Record ---
Author Organization [facility] Address [address] [place] [address] Care Team Providers Care Training And Development Head Name Role Phone Madhav Villa Unavailable [phone] Reason For Referral No Information Social History Sex Assigned At : Social History Observation Description Sex Assigned At Male Problems Problem Type SNOMED Code ICD Code Onset Dates Problem Status W/U Status Risk Notes Problem Essential hypertension (32884545) Essential (primary) hypertension (I10) Active confirmed Problem Heart failure (80149374) Heart failure, unspecified (I50.9) Active confirmed Problem Renal osteodystrophy (91852465) Renal osteodystrophy (N25.0) Active confirmed Problem Chronic kidney disease stage 3A (disorder) (988525987) Chronic kidney disease, stage 3a (N18.31) Active confirmed Plan Of Treatment Pending Test Test Name Order Date HIV 1/2 ANTIGEN/ANTIBODY,FOURTH GENERATI ON W/RFL (83982) 06/02/2022 CREATININE CLEARANCE (7943) 06/02/2022 ALBUMIN, RANDOM URINE W/CREATININE (6517 ) 06/02/2022 SODIUM WITH CREATININE, RANDOM URINE (85 14) 06/02/2022 PTH, INTACT AND CALCIUM (8837) CHLORIDE WITH CREATININE, RANDOM URINE ( 1645) 06/02/2022 COMPREHENSIVE METABOLIC PANEL (21884) URIC ACID (905) 06/02/2022 POTASSIUM W/O CREATININE, RANDOM URINE ( 23529) 06/02/2022 PROTEIN, TOTAL W/CREAT, 24 HOUR URINE (7 57) 06/02/2022 PROTEIN, TOTAL W/CREAT, RANDOM URINE (17 15) 06/02/2022 CBC (INCLUDES DIFF/PLT) (6399) URINALYSIS, COMPLETE W/REFLEX TO CULTURE (3020) 06/02/2022 SED RATE BY MODIFIED WESTERGREN (809) C-REACTIVE PROTEIN (4420) 06/02/2022 RHEUMATOID FACTOR (4418) 06/02/2022 COMPLEMENT COMPONENT C3C (351) COMPLEMENT COMPONENT C4C (353) ANCA SCREEN WITH REFLEX TO TITER (12961) 06/02/2022 COMPLEMENT, TOTAL (CH50) (618) ALEX SCREEN, IFA, W/REFL TITER AND PATTER N (249) 06/02/2022 DNA (DS) ANTIBODY (255) 06/02/2022 HEMOGLOBIN A1c (496) 06/02/2022 OSMOLALITY (U) (678) 06/02/2022 TSH (899) 06/02/2022 VITAMIN D,25-OH,TOTAL,IA (92837) 023 CRYOGLOBULIN (%CRYOCRIT), SERUM (83045) 06/02/2022 REFLEXIVE URINE CULTURE 06/02/2022 Next Appt Details Provider Name:Madhav Allen , 04/06/2025 01:00:00 PM, [address] [facility], [facility], [place], [address],
--- OUTSIDE RECORDS SUMMARY | 2025-03-22 18:28 | XMS_ITS | Encounter Summary ---
Author Organization [facility] Address [address] [place] [address] Care Team Providers Care Manager Of Internal Audit Name Role Phone None, Provider Primary Care Provider Brandon cantor Encounter Details Date Type Department Care Team (Late st Contact Info) Description 08/20/2021 Prep for Procedure [facility]-Ad[facility] [place], [place] [id number] Juan Alberto Haji MD [address] [facility] [address] [place], [place] [id number] Social History Tobacco Use Types Packs/Day Years Used Date Smoking Tobacco: Every Day Cigarettes 2 40 Smokeless Tobacco: Never Sex and Gender Information Value Date Recorded Sex Assigned at Not on file 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 Gender Identity Not on file Sexual Orientation [...] AM CDT Sandra Gurrola RN Active * [place] Suicide Severity Rating Scale (Screener/Recent Self-Report) Question [...] PCR PANEL 2 (08/19/2021 9:40 AM CDT) [facility] ADENOVIRUS PCR (RESP) NOT DETECTED NOT DETECTED 08/19/2021 11:47 AM CDT [facility] CORONAVIRUS 229E PCR (RESP) NOT DETECTED NOT DETECTED 08/19/2021 11:47 AM CDT [facility] CORONAVIRUS HKU1 PCR (RESP) NOT DETECTED NOT DETECTED 08/19/2021 11:47 AM CDT [facility] CORONAVIRUS NL63 PCR (RESP) NOT DETECTED NOT DETECTED 08/19/2021 11:47 AM CDT [facility] CORONAVIRUS OC43 PCR (RESP) NOT DETECTED NOT DETECTED 08/19/2021 11:47 AM CDT [facility] METAPNEUMOVIRUS PCR (RESP) NOT DETECTED NOT DETECTED 08/19/2021 11:47 AM CDT [facility] RHINOVIRUS/ENTEROV IRUS PCR (RESP) NOT DETECTED NOT DETECTED 08/19/2021 11:47 AM CDT [facility] INFLUENZA A PCR (RESP) NOT DETECTED NOT DETECTED 08/19/2021 11:47 AM CDT [facility] INFLUENZA B PCR (RESP) NOT DETECTED NOT DETECTED 08/19/2021 11:47 AM CDT [facility] PARAINFLUENZA 1 PCR (RESP) NOT DETECTED NOT DETECTED 08/19/2021 11:47 AM CDT [facility] PARAINFLUENZA 2 PCR (RESP) NOT DETECTED NOT DETECTED 08/19/2021 11:47 AM CDT [facility] PARAINFLUENZA 3 PCR (RESP) NOT DETECTED NOT DETECTED 08/19/2021 11:47 AM CDT [facility] PARAINFLUENZA 4 PCR (RESP) NOT DETECTED NOT DETECTED 08/19/2021 11:47 AM CDT [facility] RSV PCR (RESP) NOT DETECTED NOT DETECTED 08/19/2021 11:47 AM CDT [facility] B PARAPERTUSIS PCR (RESP) NOT DETECTED NOT DETECTED 08/19/2021 11:47 AM CDT [facility] BORDETELLA PERTUSSIS PCR (RESP) NOT DETECTED NOT DETECTED 08/19/2021 11:47 AM CDT [facility] CHLAMYDOPHILA PNEUMONIAE PCR (RESP) NOT DETECTED NOT DETECTED 08/19/2021 11:47 AM CDT [facility] MYCOPLASMA PNEUMONIAE PCR (RESP) NOT DETECTED NOT DETECTED 08/19/2021 11:47 AM CDT [facility] CORONAVIRUS SARS COV 2 PCR (RESP) NOT DETECTED NOT DETECTED 08/19/2021 11:47 AM CDT [facility] FIRST TEST NO 08/19/2021 10:44 AM T [facility] EMPLOYED IN HEALTHCARE NO 08/19/2021 10:44 AM T [facility] SYMPTOMATIC DEFINED BY CDC NO 08/19/2021 10:44 AM CDT [facility] HOSPITALIZATION STATUS NO 08/19/2021 10:44 AM CDT [facility] PATIENT IN ICU NO 08/19/2021 10:44 AM T [facility] NO 08/19/2021 10:44 AM CDT [facility] NASOPHARYNGEAL SWAB / Unknown 08/19/2021 9:40 AM CDT us Juan Alberto Haji MD MICROBIOLOGY - GENERAL ORDER KIRSTIN Final Result [facility] [address] [place] [address], [place] [phone] documented in this encounter Visit Diagnoses Diagnosis Preoperative testing- Primary Preoperative examination, unspecified documented in this encounter Care Teams Manager Of Internal Audit Relationship Specialty Start Date End Date None, Provider, PCP - General 08/15/21 documented as of this encounter
--- OUTSIDE RECORDS SUMMARY | 2025-03-22 18:28 | XMS_ITS | Clinical Summary ---
Author Organization [facility] Address [address] [place] [address] Phone Care Team Providers Care Industrial Relations Officer Name Role Phone Joselito Lazo MD [...] pur e alcohol) ONE DRINK A MONTH [facility] Utilities Answer Date Recorded In the past [...] declined 08/27/2024 How often do you attend scientologist or mormon serv ices? Patient declined 08/27/2024 Do you belong to any clubs o r organizations such as scientologist groups, unions, fraternal or athletic groups, or [...] and heating? Not hard at all 08/27/2024 [facility] [place] of Occupat ional Health - Occupational Stress [...] any time in the past 12 m [facility], were you homeless or living in a jail (including now)? No 08/27/2024 Sexually Active Control [...] Screening 2006 Immunochemical Fecal Occult Blood 2006 Medicare Initial AWV [id number] 09/14/2006 Hepatitis B Immunization (2 of 3 - 19+ 3-dose series) 06/14/2009 05/17/2009 Respiratory Syncytial Virus (RSV) Immunization (Adult) (1 - Risk 50-74 years 1-dose series) 2011 Zoster Immunization (1 of 2) 2011 Lung Cancer Screening 11/10/2019 11/09/2018 , 06/22/2017 Pneumococcal Immunization (5 0+ years) (2 of 2 - PCV) 03/14/2021 03/14/2020 Influenza Immunization (#1) 01/15/202506/2019, 02/15/2020, 04/03/2013 SARS-COV-2 Immunization (1 - 2024- season) 2025 Hepatitis C Virus (HCV) Screening [...] this topic Medical Devices Implanted Type Area Hat Finishing Materials Preparer Device Identifier Shelf Expiration Date Model / Serial / Lot Liner Actb Altrx [place] Neutral 58mm 36mm Hip - [id number] Implanted:Qty: 1 on 06/09/2022 by Dhruv Troncoso MD at [facility] IMPLANT Right: Hip [employer] 01/14/2027 [id number] / [id number] / [id number] Screw Bone 6.5mm 35mm [place] Dome 4 Point Cut Flute Hip Actb Canc Slftp Hex Head Blunt Tip - [id number] Implanted:Qty: 1 on 06/09/2022 by Dhruv Troncoso MD at [facility] IMPLANT Right: Hip [employer] 12/15/2031 [id number] / [id number] / [id number] Shell Actb 58mm Hip Sector Gription [place] - [id number] Implanted:Qty: 1 on 06/09/2022 by Dhruv Troncoso MD at [facility] IMPLANT Right: Hip [employer] 03/16/2032 [id number] / [id number] / [id number] Head Fem 5mm 12/14 Taper 36mm Hip Cementless [employer] Delta Articul/Marco - [id number] Implanted:Qty: 1 on 06/09/2022 by Dhruv Troncoso MD at [facility] IMPLANT Right: Hip [employer] 04/15/2027 [id number] / [id number] / [id number] Femoral Stem Implanted:Qty: 1 on 06/09/2022 by Dhruv Troncoso MD at [facility] Right: Hip [employer] 09/14/2031 [id number] / [id number] / [id number] Procedures Procedure Name Priority Date/Time Associated Diagnosis Comments PSA FREE & TOTAL Routine 11/23/[address] CHEST W CONTRAST STAT 06/22/2017 4 :26 PM COMMERCIAL CONSTRUCTION PROJECT MANAGER from Last 3 Months or Most Recently Relevant to Health Maintenance Results * PSA FREE & TOTAL (11/23/2019) PSA (PROSTATE SPECIFIC ANTIGEN) 3.0 ng/mL Blood specimen (specimen) 11/23/2019 Sonja Persaud MD CHEMISTRY ORDERABLES Edited Result - Final * CT CHEST W CONTRAST (06/22/2017 4:26 PM COMMERCIAL CONSTRUCTION PROJECT MANAGER) Anatomical Region Laterality Modality Chest N/A Computed Tomogra phy 06/22/2017 5:17 PM COMMERCIAL CONSTRUCTION PROJECT MANAGER Impressions 06/22/2017 5:20 PM COMMERCIAL CONSTRUCTION PROJECT MANAGER IMPRESSION: 1. No central pulmonary embolism. Evaluation [...] for this examination. Narrative 06/22/2017 5:20 PM COMMERCIAL CONSTRUCTION PROJECT MANAGER EXAMINATION: CT chest with contrast - pulmonary [...] Blancas M.D. Constantin Blancas M.D. Radiologist RT:rt [facility] Procedure Note Constantin Blancas MD - 06/22/2017 [...] Blancas M.D. Constantin Blancas M.D. Radiologist RT:rt [facility] IMPRESSION: 1. No central pulmonary embolism. Evaluation [...] Indicated MRSA 06/28/2022 06/28/2022 [facility] Advance Directives * Full Code (Latest [...] measures to stabilize the patient. Care Teams Industrial Relations Officer Relationship Specialty Start Date End Date Joeslito Lazo MD [address] [place] [address] PCP - General Internal Medicine 06/16/18
--- OUTSIDE RECORDS SUMMARY | 2025-03-22 18:28 | XMS_ITS | Clinical Summary ---
Author Organization [facility] [address] [place] [address] Professional [place] Address [address] [place] [phone] Care Team Providers Care Sleep Technician Name Role Phone Domingo Lazo MD Primary Care Provide r Allergies Active Allergy Reactions Criticality Noted Date Comments Hydrocodone Itching Low 02/12/2020 Morphine Unknown 08/15/2021 DERIVATIVES Fineplm-Qxk-Nai Reductase Inhibitors Other (See comments) High 11/23/2016 severe chest pains with all other statins besides Lipitor Taking atorvastatin with success. 01/11/25 severe chest pains with all other statins besides Lipitor severe chest pains with all other statins besides Lipitor severe chest pains with all other statins besides Lipitor Medications oxyCODONE-aceta minophen (PERCOCET) 10-325 mg per tablet Take 1 [...] sleep Active aspirin 81 mg enteric coated tabletIndicatio ns:cardiovascul ar disease Take 1 tablet (81 mg total) by mouth daily 30 tablet 3 02/16/20 20 Active amitriptyline (ELAVIL) 25 mg tablet Take 0.5 tablets (12.5 mg total) by mouth nightly Active albuterol HFA (PROVENTIL HFA,VENTOLIN HFA,PROAIR HFA) 90 mcg/actuation inhaler Inhale 1 puff every 4 (four) hours as needed for wheezing or shortness of breath 02/03/20 22 Active cyclobenzaprine (FLEXERIL) 10 mg tablet Take 1 tablet (10 mg total) by mouth 2 (two) times a day as needed for muscle spasms 02/05/20 23 Active ezetimibe (ZETIA) 10 mg tablet Take 1 tablet (10 mg total) by mouth daily 05/02/20 23 Active isosorbide mononitrate ER (IMDUR) 30 mg 24 hr tablet Take 1 tablet (30 mg total) by mouth daily 30 tablet 1 09/01/19 25 Active atorvastatin (LIPITOR) 40 mg tablet Take 1 tablet (40 mg total) by mouth daily 30 tablet 1 09/02/19 25 Active metoprolol XL (TOPROL-XL) 100 mg 24 hr tablet Take 1 tablet (100 mg total) by mouth daily 90 tablet 3 12/20/19 25 026 Active amoxicillin-cla vulanate (AUGMENTIN) 875-125 mg per tablet Take 1 tablet by mouth every 12 (twelve) hours for 7 days 01/03/20 25 Active metFORMIN XR (GLUCOPHAGE XR) 750 mg 24 hr tablet Take 2 tablets (1,500 mg total) by mouth daily with breakfast With next prescription refill. E11.9 180 tablet 4 01/12/20 25 026 Active lidocaine (XYLOCAINE) 5 % ointment 01/13/20 25 Active lisinopriL (PRINIVIL,ZESTR IL) 10 mg tablet Take 1 tablet (10 mg total) by mouth daily 90 tablet 3 03/20/20 25 026 Active Jardiance 25 mg tablet Take 1 tablet (25 mg total) by mouth daily 30 tablet 5 03/20/20 25 026 Active lisinopriL (PRINIVIL,ZESTR IL) 10 mg tablet Take 1 tablet (10 mg total) by mouth daily 90 tablet 3 12/03/19 24 025 Discontin ued(Reord er) Hospital, Clinic, or Other Facility Administered Medication Ordered Dose Route Frequency Start Date End Date Status lidocaine (XYLOCAINE) 20 mg/mL (2 %) injection 3 mLIndications:Admini stration of Local Anesthesia 3 mL One-Time Injection 02/26/2025 5 Ended methylPREDNISolone acetate (DEPO-medrol) injection 80 mgIndications:Primar y osteoarthritis of left shoulder,Rotator cuff tendonitis, left 80 mg intra-artic One-Time Injection 02/26/2025 5 Ended Active Problems Problem Noted Date Diagnosed Date Unstable angina pectoris 08/29/2024 Severe obesity 05/04/2024 Trochanteric bursitis of left hip 12/28/2023 Class 1 obesity due to exces s calories with serious comorbidity and body mass index (BMI) of 34.0 to 34.9 in adult 07/07/2023 Assessment & Plan (05/04/2024 8:43 AM PRODUCTION FINISHER): This is a chronic condition which continues [...] sessions. Assessment & Plan (07/07/2023 9:04 AM PRODUCTION FINISHER): This is a chronic condition which is [...] 09/16/2021 Assessment & Plan (05/04/2024 8:39 AM PRODUCTION FINISHER): This a chronic condition which continues He feels ready to try and quit He is requesting to try Chantix Chantix ordered Coronary artery disease invo lving [place] coronary artery of [place] heart without angina pectoris 03/13/2020 Cellulitis 02/14/2020 Renal lesion 02/14/2020 Prostate enlargement 02/14/2020 Coronary artery disease invo lving [place] coronary artery with unstable angina pectoris 02/13/2020 Type 2 diabetes mellitus wit h stage 2 chronic kidney disease, without long-term current use of insulin 02/13/2020 Assessment & Plan (05/04/2024 8:41 AM PRODUCTION FINISHER): This is a chronic condition which is [...] last dilated eye exam was [facility] in [place] Monofilament foot exam completed. Protective senses intact. Personally reviewed CMP [id number]-69 Kidney function-abnormal Urine microalbumin/creatinine ratio - at goal. Goal is <30. Continue lisinopril Assessment & Plan (07/07/2023 9:02 AM PRODUCTION FINISHER): This is a chronic condition which is [...] eye exam. last dilated eye exam was [facility] in [place] Monofilament foot exam completed. protective senses intact [...] pain Assessment & Plan (03/31/2023 9:49 AM PRODUCTION FINISHER): This is a chronic condition which is [...] eye exam. last dilated eye exam was [facility] in [place] Monofilament foot exam completed. protective senses intact [...] (02/13/2020): Added automatically from request for surgery [id number] Coronary artery disease invo lving [place] coronary artery of [place] tribe heart without angina pectoris 01/24/2020 Arthritis of left acromioclavicular joint 2018 Overview (12/23/2018): Added automatically from request for surgery [id number] Impingement syndrome of shoulder region 12/24/19 Overview (12/23/2018): Added automatically from request for surgery [id number] Biceps tendinitis 12/23/2018 Overview (12/23/2018): Added automatically from request for surgery [id number] Chronic back pain 09/30/2013 Overview (08/21/2016): Chronic Back Pain Essential hypertension 09/30/2013 Overview (08/21/2016): Hypertension Assessment & Plan (05/04/2024 8:44 AM PRODUCTION FINISHER): This is a chronic condition which is [...] prescribed. Assessment & Plan (07/07/2023 9:03 AM PRODUCTION FINISHER): This is a chronic condition which is at goal of less than 140/90 Personally reviewed labs. Continue Lasix, lisinopril, metoprolol Encouraged to monitor weight and B/P at home Encouraged to take medications as prescribed. Assessment & Plan (03/31/2023 9:50 AM PRODUCTION FINISHER): This is a chronic condition which is at goal of less than 140/90 Personally reviewed labs. Continue lisinopril, Lasix, metoprolol Encouraged to monitor weight and B/P at home Encouraged to take medications as prescribed. Mixed diabetic hyperlipidemi a associated with type 2 diabetes mellitus 09/30/2013 Overview (08/21/2016): Hyperlipidemia Assessment & Plan (05/04/2024 8:42 AM PRODUCTION FINISHER): This is a chronic condition which is [...] atorvastatin Assessment & Plan (07/07/2023 9:02 AM PRODUCTION FINISHER): This is a chronic condition which is at goal of LDL less than 70 Continue Zetia, atorvastatin alternating with rosuvastatin Encouraged to eat healthy, include fresh fruits and vegetables daily and avoid eating fried foods more than once per week. Encouraged to take medications as prescribed. Assessment & Plan (03/31/2023 9:49 AM PRODUCTION FINISHER): This is a chronic condition which is [...] Diagnosed Date Resolved Date Statin intolerance 08/31/2024 Encounters Date Type Department Care Team Description 03/20/2025 Telephone [facility] Medical Group Diabetes Endocrine Care at [address] [place] [address] Holley Hoffman NP 03/16/2025 Telephone [place] Assignment Manager at [address] [place] [phone] Yoly Shafer MA 02/26/2025 8:30 AM CDT Office Visit [facility] Medical [facility] Orthopedics and Sports Medicine [address] [place] [address] [address] [place] [address] Angel Minor PA Primary osteoarthritis of left shoulder (Primary Dx); Rotator cuff tendonitis, left 02/26/2025 7:43 AM CDT - 02/26/2025 11:59 PM CDT Hospital Encounter [facility] [address] [place] [address] [address] [place] [address] Discharge Disposition: Discharge to home or self care 01/11/2025 7:30 AM CDT Office Visit [facility] Diabetes Endocrine Care at [address] [place] [phone] Holley Hoffman NP Class 1 obesity due to excess calories with serious comorbidity and body mass index (BMI) of 34.0 to 34.9 in adult (Primary Dx); Type 2 diabetes mellitus with stage 2 chronic kidney disease, without long-term current use of insulin (HCC); Essential hypertension; Mixed diabetic hyperlipidemia associated with type 2 diabetes mellitus (HCC) 01/11/2025 Orders Only [facility] [address] [facility] [address] [place] [phone] Won Hutchison MD Acute pain of right shoulder (Primary Dx); Nontraumatic tear of right rotator cuff, unspecified tear extent 01/11/2025 Telephone [facility] [address] [facility] [address] [place] [phone] Won Hutchison MD 12/27/2024 Results Follow-Up [facility] Diabetes Endocrine Care at [address] [place] [address] Holley Hoffman NP Lipid panel, Albumin Creatinine Ratio, Urine 12/26/2024 Orders Only [facility] Diabetes Endocrine Care at [place] [id number] [facility] [address] [place] [phone] Holley Hoffman NP from Last 3 Months [...] shoulder CHOLECYSTECTOMY 1992 Cholecystectomy OTHER SURGICAL HISTORY 2011 Rotator cuff tear (right): rotator cuff repair/arthroscopy [...] arthroscopy & medial menisectomy OTHER SURGICAL HISTORY 2007 Coronary artery disease: angioplasty with 2 stents OTHER SURGICAL HISTORY Chronic low back pain (s/p trauma): LESIs, pain management OTHER SURGICAL HISTORY Right wrist fracture: cast immobilization CARDIAC CATHETERIZATION 08/31/2024 N/A Procedure: LEFT HEART CATHETERIZATION WITH CORONARY ANGIOGRAPHY AND WITH OR WITHOUT LEFT VENTRICULOGRAM [id number]; Surgeon: Maria Del Carmen Gill MD; Location: [facility] CARDIAC LIDAR SCIENTIST; Service: Cardiovascular; Laterality: N/A; Medical devices from [...] pur e alcohol) very little [facility] Utilities Answer Date Recorded In the past 12 months has [facility] electric, gas, oil, or water Muufri threatened to shut off services in your home? No 08/30/2024 Social Connection and Isolation Panel Answer Date Recorded In a typical week, how many times do you talk on the phone with family, friends, or neighbors? Three times a week 08/30/2024 How often do you get togethe r with friends or relatives? Three times a week 08/30/2024 How often do you attend [facility] or baptist services? Never 08/30/2024 Do you belong to any clubs o r organizations such as mandaen groups, unions, fraternal or athletic groups, or [...] any time in the past 12 m [facility], were you homeless or living in a senior care (including now)? No 08/30/2024 Personal Safety Answer Date Recorded Have you ever been in or are you currently in a harmful physical or emotional relationship or is someone making you feel afraid or unsafe? Denies 08/29/2024 Sex and Gender Information Value Date Recorded Sex Assigned at Not on file Legal Sex Male 2:30 PM PRODUCTION FINISHER Gender Identity Male 03/12/2022 7:40 AM CDT Sexual Orientation Not on file Last Filed Vital Signs Vital Sign Reading Time Taken Comments Blood Pressure 149/87 02/26/2025 8:31 AM CDT Pulse 80 02/26/2025 8:31 AM CDT Temperature 36.4 C (97.5 F) 08/31/2024 9:33 AM CDT Respiratory Rate 18 08/31/2024 11:35 AM CDT Oxygen Saturation 98% 08/31/2024 10:55 AM CDT Inhaled Oxygen Concentration - - Weight 109.3 kg (241 lb) 02/26/2025 8:31 AM CDT Height 175.3 cm (5' 9) 02/26/2025 8:31 AM CDT Body Mass Index 35.59 02/26/2025 8:31 AM CDT Plan of Treatment Health Maintenance [...] history exists Albumin Creatinine Ratio, Urine 12/26/2025 , 07/09/2023 Lipid Panel 12/26/2025 12/26/2024, 06/18, 02/13/2020 Foot Exam 01/11/2026 01/11/2025, 04/16, 12/03/2023, Additional history exists Dilated Eye Exam 10/06/2026 10/06/2024, 12/04/2022 Hepatitis B Screening Completed 05/17/2009 Hepatitis C Screening Completed 05/17/2009 Colon Cancer Screening-CT Colonography Discontinued 03/21/2012 Colon Cancer Screening-DNA Stool Discontinued 03/21/20 Colon Cancer Screening-FIT Discontinued 03/21/2012 Colon Cancer Screening-Sigmoidoscopy Discontinued 03/21/2012 Medical Devices Implanted Type Area Fish Boning Machine Feeder Device Identifier Shelf Expiration Date Model / Serial / Lot Slicethepie [id number] Synergy 2.75mm 16mm 144cm Radiopaque 1 Access Port Inflation - [id number] Implanted:Qty: 1 on 02/13/2020 by Juan Chaudhry MD at [facility] Slicethepie 05/21/2021 [id number] / / [id number] [employer] Ge Angio-Seal Vip 6fr Closere Device [id number] - [id number] Implanted:Qty: 1 on 08/31/2024 by Maria Del Carmen Gill MD at [facility] 04/03/2025 [id number] / / [id number] Procedures Procedure Name Priority Date/Time Associated Diagnosis Comments [place] ARTHROCENTESIS ASPIR&/INJ MAJOR JT/BURSA W/O US Routine 02/26/2025 8:30 AM CDT Primary osteoarthritis of left shoulder Rotator cuff tendonitis, left XR SHOULDER LEFT 2 OR MORE VIEWS Routine 02/26/2025 8:29 AM CDT Primary osteoarthritis of left shoulder POCT GLUCOSE Routine 01/11/2025 7:49 AM CDT [...] 3:04 AM CDT COLONOSCOPY 03/21/2012 12:00 AM PRODUCTION FINISHER from Last 3 Months or Most Recently Relevant to Health Maintenance Results * NJ ARTHROCENTESIS ASPIR&/INJ MAJOR JT/BURSA W/O US (02/26/2025 8:30 AM CDT) Narrative Angel Minor PA - 02/26/2025 8:30 AM CDT Angel Minor PA 02/26/2025 9:42 AM Large Joint (Hip, Knee, Shoulder) Injection: L subacromial bursa Performed by: Angel Minor PA Authorized by: Angel Minor PA Large Joint Injection/Aspiration: Consent Given by: Patient Site marked: the procedure site was marked Timeout: prior to procedure the correct patient, procedure, and site was verified Verbal consent obtained: Yes Supporting Documentation: Indications: Pain Procedure Details: Location: Shoulder Site: L subacromial bursa Prep: patient was prepped and draped in usual sterile fashion Prep: patient was prepped using a clean technique Needle Size: 22 G Approach: Posterior Ultrasound guided: No Fluroscopic guidance: No Medications: 80 mg methylPREDNISolone acetate 80 mg/mL; 3 mL lidocaine 20 mg/mL (2 %) Patient tolerance: Patient tolerated the procedure well with no immediate complications Angel [facility]/BEDSIDE ANABELLE GONZALEZ Final Result * XR Shoulder Left 2 or More Views (02/26/2025 8:29 AM CDT) Anatomical Region Laterality Modality Upper Extremities, Shoulder Left Digi arnie Radiography Narrative 02/26/2025 8:54 AM CDT Views of the left shoulder reviewed interpreted today. No evidence of fracture dislocation. Mild degenerative changes noted at glenohumeral joint and moderate osteoarthritic changes noted at AC joint as evidenced by joint space narrowing subchondral sclerosis and subacromial spurring. Angel P[facility] IMG XR PROCEDURES Corry l Result * POCT glucose (01/11/2025 7:49 AM CDT) Glucose Blood, POC 148 Normal Fasting 70 - 100, Random <200 mg/dL Blood 01/11/2025 7:49 AM CDT Holley Hoffman NP POINT OF [...] 12/27/2024 6:34 AM CDT FASTING:YES FASTING: YES us Hollye Hoffman NP LAB URINE ORDERABLES Final Resu lt [facility] [address] [place] [id number] * (ABNORMAL) Lipid panel (12/26/2024 7:31 AM CDT) Pathologist [facility] Cholesterol 151 <200 mg/dL [facility] [...] LDL-C. Eliezer SS et al. BETSY. 2013;310(19): 0223-9692 (http://education.Hosted Systems/faq/SRE036) Chol/HDL ratio 5.0(H) <5.0 (calc) [facility] [...] NP LAB BLOOD ORDERABLES Final Resu lt [facility] [address] [facility] [place] [address] * Diabetic Eye Exam (10/06/2024) 10/06/2024 Historical [...] of Race in Diagnosing Kidney Disease, JASN 202). The CKD-EPI equation should not be used for patients with unstable renal function and has not been validated in children and those over 70. Current interpretive data was last reviewed 2021. Blood 08/31/2024 3:04 AM CDT 08/31/2024 3:38 AM CDT us Oanh Welch DO LAB BLOOD ORDERABLES Fin al Result ELÍAS JIMENEZ [place]) [address] [facility] Department [place] [address] * COLONOSCOPY (03/21/2012 12:00 AM PRODUCTION FINISHER) Anatomical Region Laterality Modality Other Narrative 03/21/2012 12:00 AM PRODUCTION FINISHER Ordered by an unspecified provider. Procedure Note Provider, MD Jimmy - 03/21/2012 12:00 AM CST PROCEDURE REPORT Patient: WAQAS SANON Account: [id number] Room No: : 1960 Patient Type: [facility] Attend.: Chaim Friedman M.D. Admit Date: 03/21/2012 Dict.: Chaim Friedman M.D. Disch. Date:03/21/2012 NAME OF PROCEDURE: Colonoscopy. HISTORY: 51-year-old male who presents for screening colonoscopy. HISTORY: Well-developed male. Lungs were clear. Cardiovascularexamination was unremarkable. PROCEDURE: Colonoscopy was performed with the Clipsource video endoscope.The patient was premedicated by anesthesia. [...] DIAGNOSIS: No abnormalities noted. Chaim Friedman M.D. DR/letitia TD: 03/22/2012 05:45 CC: Dr. Keagan Edge Authenticated by Chaim Friedman MD On 03/25/2012 07:37:09 AM us Historical Provider ENDOSCOPY PROCEDURES Corry l Result from Last 3 Months or Most Recently Relevant to Health Maintenance Insurance [facility] MDCR HMO REF IDPA HUMANA CHOICE MEDICARE PPO MEDICARE ADVANTAGE MEDICARE ADVANTAGE Advance Directives For more information, please contact: [phone] Documents on File Type Date Recorded Patient Chopper Operator Expl anation ADVANCE DIRECTIVE 02/15/2020 11:17 AM Kelly r of Violin [employer] * Full Code (Latest Code Status on File) Date Activated Date Inactivated Comments 08/29/2024 9:11 PM 08/31/2024 5:46 PM * Full Code Date Activated Date Inactivated Comments 02/13/2020 6:51 AM 02/15/2020 4:28 PM Care Teams Sleep Technician Relationship Specialty Start Date End Date Domingo Lazo MD PCP - General Internal Medicine 11/30/18
--- OUTSIDE RECORDS SUMMARY | 2025-03-22 18:28 | XMS_ITS | Clinical Summary ---
Author Organization [facility] Address [address] [place] [address] Care Team Providers Care Government Sales Manager Name Role Phone None, Provider MD Primary [...] Active vitamin D2, ergocalciferol, (VITAMIN D, ERGOCALCIFEROL,) 86389 UNITS capsule weekly. 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 Gender Identity Not on file Sexual Orientation [...] PCV) 03/14/2021 03/14/2020 COVID-19 Vaccine (1 - 2024-2 6 season) 2025 Influenza Adult (#1) 2025 02/16/2020, 04/03/2013 RSV Immunization or 60+ Years (1 - 1-dose 75+ series) 2036 Hepatitis A Vaccines Aged Out 05/17/2009 No long er eligible based on patient's age to complete this topic Meningococcal B Vaccine Aged Out No l onger eligible based on patient's age to complete this topic Meningococcal Vaccine Aged Out No celestine brock eligible based on patient's age to complete this topic RSV Immunizations Under 20 Months Aged Out No longer eligible b ased on patient's age [place] [id number] Advance Directives * Full Code (Latest Code Status on File) Date Activated Date Inactivated Comments 08/20/2021 2:06 PM 08/20/2021 5:53 PM Care Teams Government Sales Manager Relationship Specialty Start Date End Date None, Provider, PCP - General 08/15/21
--- OUTSIDE RECORDS SUMMARY | 2025-03-22 18:28 | XMS_ITS | Clinical Summary ---
Author Organization [facility] Address [address] [place] [address] Care Team Providers Care Broommaker Name Role Phone Joselito Lazo MD Primary Care Provider Allergies Active Allergy Reactions Criticality Noted Date Comments Ffyzrrp-Elc-Gqx Reductase Inhibitors Other (See Comments) 11/15/2018 severe [...] Flex Sig/CT Colonography Q 5 years 2006 RSV VACCINE (60+ or ) (1 - Risk 50-74 years 1-dose series) 2011 ZOSTER VACCINE (1 of 2) 2011 COLORECTAL SCREENING 03/21/2022 03/21/2012 Colorectal Cancer Screening 03/21/2022 DIABETES HBA1C Q 6 MONTHS 11/26/2022 05/29/2022 INFLUENZA VACCINE (#1) 2024 04/03/2013 Insurance Member Subscriber Plan / Payer (Ef fective 2022-Present) Name:Vivek Sanon Relation to Subscriber:Self Name:Vivek Sanon Payer ID:[id number] (NAIC) Type:PPO Address: [place] [id number] Care Teams Broommaker Relationship Specialty Start Date End Date Joselito Lazo MD PCP - General Internal Medicine 08/09/18
--- OUTSIDE RECORDS SUMMARY | 2025-03-22 18:29 | XMS_ITS | Clinical Summary ---
Author Organization [facility] Address [address] [place] [address] Care Team Providers Care Parts Salesman Name Role Phone Joselito Lazo MD Primary Care Provider Source Comments [facility],non-owned Affiliates and Associated Physician Practices is amultiple site organization consisting of ambulatory clinics and hospital sitesin [place], [place], [place] and [place]. This disclosure is being madepursuant to the Care Everywhere program and may not contain all information available regarding this patient. Last updated 18.[facility] Allergies No known active allergies Medications * [...] kg (251 lb 4.8 oz) 03/07/2019 8:05 AM CDT Height 180.3 cm (5' 11) 03/07/2019 [...] 9, 09/13/2018 DEPRESSION SCREENING 05/17/2024 COVID-19 VACCINE (2023-2 5 season) 2025 INFLUENZA VACCINE (#1) 2025 [...] General On track( 019 8:27 AM CDT) Frank Real, RN Note: Expected end date: Interventions: [...] 2:30 PM CDT) Hepatitis C Antibody Non-react teresasapphire Flores-rechristophe tianitha 09/13/2018 3:36 PM CDT [facility] Comment: Hepatitis C Antibody [...] ORDERAB LES Final Result Performing Organization Address City/State/[facility] Co de Phone Number [address] [phone] from Last 3 Months or Most Recently Relevant to Health Maintenance Insurance [facility] MANAGED MEDICARE ADV Care Teams Parts Salesman Relationship Specialty Start Date End Date Joselito Lazo MD [address] [address] PCP - General Internal Medicine 08/04/18
--- OUTSIDE RECORDS SUMMARY | 2025-03-22 19:51 | XMS_ITS | Clinical Summary ---
Author Organization [facility] Address [address] [place] [address] Care Team Providers Care Human Resources File Clerk Name Role Phone None, Provider MD Primary [...] Active vitamin D2, ergocalciferol, (VITAMIN D, ERGOCALCIFEROL,) 88913 UNITS capsule weekly. 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
--- OUTSIDE RECORDS SUMMARY | 2025-03-22 19:51 | XMS_ITS | Clinical Summary ---
Author Organization [facility] Address [address] [place] [address] Phone Care Team Providers Care Solution Sales Senior Executive Name Role Phone Unavailable Unavailable Unavailable Reason for Visit and Chief Complaint NEW PATIENT VISIT Plan of Treatment No Plan of Treatment Recorded Assessments Includes: Assessments from this encounter No Assessments Recorded Medical Equipment - Implanted Devices Includes: Current Devices No Medical Equipment Recorded Medications Administered Includes: Administered Medications from this encounter No Administered Medications Recorded Results Includes: Results discussed during this encounter No Results Recorded For Specified Dates History of Present Illness Includes: History of Present Illness from this encounter No History of Present Illness Recorded Social History No Social History Recorded - Smoking Status Unknown Medical History Includes: Medical History addressed during this encounter No Medical History Recorded Family History Includes: Family History addressed during this encounter No Family History Recorded Review of Systems Includes: Review of Systems from this encounter No Review of Systems Recorded Mental Status Includes: Mental Status from this encounter No Mental Status Recorded Functional Status Includes: Functional Status from this encounter No Functional Status Recorded Physical Exam Includes: Physical Exam from this encounter No Physical Exam Recorded Encounters Encounter Provider Location Date Check-In Time Check- Out Time Diagnosis NEW PATIENT VISIT [facility] 8 9:45AM 11:59PM Clinical Notes Includes: Clinical Notes from this encounter No Clinical Notes Recorded
--- OUTSIDE RECORDS SUMMARY | 2025-03-22 19:51 | XMS_ITS | Encounter Summary ---
Author Organization [facility] Address [address] [place] [address] Phone Care Team Providers Care Pulp Plant Supervisor Name Role Phone Joselito Lazo MD Primary Care Provider Encounter Details Date Type Department Care Team (Late st Contact Info) Description 2022 Transcribe Orders [facility] Preop/Pacu II [address] [place] [address] Dhruv Troncoso MD [address] [place] [address], [address] [place] [address] Pre-op testing (Primary Dx) Social History Tobacco [...] Coronavirus/COVID-19? No / Unsure 2022 11:16 AM DISASTER RECOVERY CONSULTANT documented as of this encounter Plan of Treatment Not on file documented as of this encounter Results * TYPE & SCREEN (CROSSMATCH CONVERTIBLE) (06/03/2022 7:54 AM DISASTER RECOVERY CONSULTANT) ABO TYPING O 06/03/2022 9:36 AM DISASTER RECOVERY CONSULTANT [facility] RH Positive 06/03/2022 9:36 AM DISASTER RECOVERY CONSULTANT [facility] ABSC Negative 06/03/2022 9:36 AM DISASTER RECOVERY CONSULTANT [facility] Blood Venipuncture / Unknown 06/03/2022 7:54 AM DISASTER RECOVERY CONSULTANT 06/03/2022 8:24 AM DISASTER RECOVERY CONSULTANT us Dhruv Troncoso MD BLOOD BANK ORDERABLES Ed ited Result - Final [facility] [place] [address] documented in this encounter Visit Diagnoses Diagnosis Pre-op testing- Primary Preoperative examination, unspecified documented in this encounter Additional Health Concerns Infection Onset Date Last Indicated Resolved Time MRSA 06/28/2022 06/28/2022 Assessment Noted Time PHQ-9 Depression Total Score: 0 04/01/20 17 2:00 PM DISASTER RECOVERY CONSULTANT documented as of this encounter Care Teams Pulp Plant Supervisor Relationship Specialty Start Date End Date Joselito Lazo MD [address] [place], [place] [id number] PCP - General Internal Medicine 06/16/18 documented as of this encounter
--- OUTSIDE RECORDS SUMMARY | 2025-03-22 19:51 | XMS_ITS | Clinical Summary ---
Author Organization [facility] Address [address] [place] [address] Care Team Providers Care Sales Representative Business Courses Name Role Phone Joselito Lazo MD Primary Care Provider Allergies Active Allergy Reactions Criticality Noted Date Comments Fslqkcy-Rbr-Pey Reductase Inhibitors Other (See Comments) 11/15/2018 severe [...] Name:Vivek Sanon Payer ID:[id number] (NAIC) Type:PPO Address: [place] [id number] Care Teams Sales Representative Business Courses Relationship Specialty Start Date End Date Joselito Lazo MD PCP - General Internal Medicine 08/09/18
--- OUTSIDE RECORDS SUMMARY | 2025-03-22 19:52 | XMS_ITS | Clinical Summary ---
Author Organization [facility] [employer] Address [address] [place] [address] Care Team Providers Care Landscape And Yardwork Laborer Name Role Phone Joselito Lazo MD Primary Care Provider Source Comments [facility] [employer],non-owned Affiliates and Associated Physician Practices is amultiple site organization consisting of ambulatory clinics and hospital sitesin [place], [place], [place] and [place]. This disclosure is being madepursuant to the Care Everywhere program and may not contain all information available regarding this patient. Last updated 18.[facility] [employer] Allergies No known active allergies Medications * [...] teresasapphire Flores-rechristophe tianitha 09/13/2018 3:36 PM CDT [facility] Comment: Hepatitis C Antibody screen [...] ORDERAB LES Final Result Performing Organization Address City/State/[facility] Co de Phone Number [address] [phone] from Last 3 Months or Most Recently Relevant to [place] [address] [facility] MANAGED MEDICARE ADV Care Teams Landscape And Yardwork Laborer Relationship Specialty Start Date End Date Joselito Lazo MD [address] [address] PCP - General Internal Medicine 08/04/18
--- OUTSIDE RECORDS SUMMARY | 2025-03-22 19:52 | XMS_ITS | Clinical Summary ---
Author Organization [facility] Address [address] [place] [address] Phone Care Team Providers Care Electrode Cleaning Machine Operator Name Role Phone Unavailable Unavailable Unavailable Reason for Visit and Chief Complaint GENERAL OFFICE VISIT Plan of Treatment No Plan of [...] from this encounter No Physical Exam Recorded Clinical Notes Includes: Clinical Notes from this encounter No Clinical Notes Recorded
--- OUTSIDE RECORDS SUMMARY | 2025-03-22 19:52 | XMS_ITS | Clinical Summary ---
Author Organization [facility] Address [address] [place] [address] Phone Care Team Providers Care Licensed Surveyor Name Role Phone Unavailable Unavailable Unavailable Reason [...] Date Check-In Time Check- Out Time Diagnosis GENERAL OFFICE VISIT [facility] 8 10:30AM 11:59PM Clinical Notes Includes: Clinical Notes from this encounter No Clinical Notes Recorded
--- OUTSIDE RECORDS SUMMARY | 2025-03-22 19:52 | XMS_ITS | Clinical Summary ---
Author Organization [facility] Address [address] [place] [address] Phone Care Team Providers Care Magneto Specialist Name Role Phone Unavailable Unavailable Unavailable Reason [...]
--- OUTSIDE RECORDS SUMMARY | 2025-03-22 19:52 | XMS_ITS | Encounter Summary ---
Author Organization [facility] Address [address] [place] [address] Care Team Providers Care Risk Developer Name Role Phone None, Provider Primary Care Provider Brandon cantor Encounter Details Date Type Department Care Team (Late st Contact Info) Description 08/20/2021 Prep for Procedure [facility] [place], [place] [id number] Juan Alberto Haji MD [address] [facility] [address] [place], [place] [id number] Social History Tobacco Use Types Packs/Day Years Used Date Smoking Tobacco: Every Day Cigarettes 2 40 Smokeless Tobacco: Never Sex and Gender Information Value Date Recorded Sex Assigned at Not on file Legal Sex Male 9:59 PM INVENTORY CONTROL ANALYST Gender Identity Not on file Sexual Orientation [...] AM CDT Sandra Gurrola RN Active * [place] Suicide Severity Rating Scale (Screener/Recent Self-Report) Question [...] PCR PANEL 2 (08/19/2021 9:40 AM CDT) [facility] ADENOVIRUS PCR (RESP) NOT DETECTED NOT DETECTED 08/19/2021 11:47 AM CDT [facility] CORONAVIRUS 229E PCR (RESP) NOT DETECTED NOT DETECTED 08/19/2021 11:47 AM CDT [facility] CORONAVIRUS HKU1 PCR (RESP) NOT DETECTED NOT DETECTED 08/19/2021 11:47 AM CDT [facility] CORONAVIRUS NL63 PCR (RESP) NOT DETECTED NOT DETECTED 08/19/2021 11:47 AM CDT [facility] CORONAVIRUS OC43 PCR (RESP) NOT DETECTED NOT DETECTED 08/19/2021 11:47 AM CDT [facility] METAPNEUMOVIRUS PCR (RESP) NOT DETECTED NOT DETECTED 08/19/2021 11:47 AM CDT [facility] RHINOVIRUS/ENTEROV IRUS PCR (RESP) NOT DETECTED NOT DETECTED 08/19/2021 11:47 AM CDT [facility] INFLUENZA A PCR (RESP) NOT DETECTED NOT DETECTED 08/19/2021 11:47 AM CDT [facility] INFLUENZA B PCR (RESP) NOT DETECTED NOT DETECTED 08/19/2021 11:47 AM CDT [facility] PARAINFLUENZA 1 PCR (RESP) NOT DETECTED NOT DETECTED 08/19/2021 11:47 AM CDT [facility] PARAINFLUENZA 2 PCR (RESP) NOT DETECTED NOT DETECTED 08/19/2021 11:47 AM CDT [facility] PARAINFLUENZA 3 PCR (RESP) NOT DETECTED NOT DETECTED 08/19/2021 11:47 AM CDT [facility] PARAINFLUENZA 4 PCR (RESP) NOT DETECTED NOT DETECTED 08/19/2021 11:47 AM CDT [facility] RSV PCR (RESP) NOT DETECTED NOT DETECTED 08/19/2021 11:47 AM CDT [facility] B PARAPERTUSIS PCR (RESP) NOT DETECTED NOT DETECTED 08/19/2021 11:47 AM CDT [facility] BORDETELLA PERTUSSIS PCR (RESP) NOT DETECTED NOT DETECTED 08/19/2021 11:47 AM CDT [facility] CHLAMYDOPHILA PNEUMONIAE PCR (RESP) NOT DETECTED NOT DETECTED 08/19/2021 11:47 AM CDT [facility] MYCOPLASMA PNEUMONIAE PCR (RESP) NOT DETECTED NOT DETECTED 08/19/2021 11:47 AM CDT [facility] CORONAVIRUS SARS COV 2 PCR (RESP) NOT DETECTED NOT DETECTED 08/19/2021 11:47 AM CDT [facility] FIRST TEST NO 08/19/2021 10:44 AM T [facility] EMPLOYED IN HEALTHCARE NO 08/19/2021 10:44 AM T [facility] SYMPTOMATIC DEFINED BY CDC NO 08/19/2021 10:44 AM CDT [facility] HOSPITALIZATION STATUS NO 08/19/2021 10:44 AM CDT [facility] PATIENT IN ICU NO 08/19/2021 10:44 AM T [facility] RESIDENT OF [facility] NO 08/19/2021 10:44 AM CDT [facility] NASOPHARYNGEAL SWAB / Unknown 08/19/2021 9:40 AM CDT us Juan Alberto Haji MD MICROBIOLOGY - GENERAL ORDER KIRSTIN Final Result [facility] [address] [place] [address], [place] [phone] documented in this encounter Visit Diagnoses Diagnosis Preoperative testing- Primary Preoperative examination, unspecified documented in this encounter Care Teams Risk Developer Relationship Specialty Start Date End Date None, Provider, PCP - General 08/15/21 documented as of this encounter
--- OUTSIDE RECORDS SUMMARY | 2025-03-22 19:52 | XMS_ITS | Clinical Summary ---
Author Organization [facility] Address [address] [place] [address] Phone Care Team Providers Care Investigator Internal Affairs Name Role Phone Joselito Lazo MD Primary [...] pur e alcohol) ONE DRINK A MONTH [facility] Utilities Answer Date Recorded In [...] declined 08/27/2024 How often do you attend orthodox or sikhism serv ices? Patient declined 08/27/2024 Do you belong to any clubs o r organizations such as orthodox groups, unions, fraternal or athletic groups, or [...] and heating? Not hard at all 08/27/2024 [facility] [place] [facility] Occupat ional [facility] - Occupational Stress [...] any time in the past 12 m [facility], were you homeless or living in a longterm (including now)? No 08/27/2024 Sexually Active Control [...] this topic Medical Devices Implanted Type Area Education Specialist Device Identifier Shelf Expiration Date Model / Serial / Lot Liner Actb Altrx [place] Neutral 58mm 36mm Hip - [id number] Implanted:Qty: 1 on 06/09/2022 by Dhruv Troncoso MD at [facility] IMPLANT Right: Hip [employer] 01/14/2027 [id number] / [id number] / [id number] Screw Bone 6.5mm 35mm [place] Dome 4 Point Cut Flute Hip Actb Canc Slftp Hex Head Blunt Tip - [id number] Implanted:Qty: 1 on 06/09/2022 by Dhruv Troncoso MD at [facility] IMPLANT Right: Hip [employer] 12/15/2031 [id number] / [id number] / [id number] Shell Actb 58mm Hip Sector Gription [place] - [id number] Implanted:Qty: 1 on 06/09/2022 by Dhruv Troncoso MD at [facility] IMPLANT Right: Hip [employer] 03/16/2032 [id number] / [id number] / [id number] Head Fem 5mm 12/14 Taper 36mm Hip Cementless Biol[employer] Delta Articul/Marco - [id number] Implanted:Qty: 1 on 06/09/2022 by Dhruv Troncoso MD at [facility] IMPLANT Right: Hip [employer] 04/15/2027 [id number] / [id number] / [id number] Femoral Stem Implanted:Qty: 1 on 06/09/2022 by Dhruv Troncoso MD at [facility] Right: Hip [employer] 09/14/2031 [id number] / [id number] / [id number] Procedures Procedure Name Priority Date/Time Associated Diagnosis Comments PSA FREE & TOTAL Routine 11/23/[address] CHEST W CONTRAST STAT 06/22/2017 4 :26 PM POWDER LINE REPAIRER from Last 3 Months or Most Recently Relevant to Health Maintenance Results * PSA FREE & TOTAL (11/23/2019) PSA (PROSTATE SPECIFIC ANTIGEN) 3.0 ng/mL Blood specimen (specimen) 11/23/2019 Sonja Persaud MD CHEMISTRY ORDERABLES Edited Result - Final * CT CHEST W CONTRAST (06/22/2017 4:26 PM POWDER LINE REPAIRER) Anatomical Region Laterality Modality Chest N/A Computed Tomogra phy 06/22/2017 5:17 PM POWDER LINE REPAIRER Impressions 06/22/2017 5:20 PM POWDER LINE REPAIRER IMPRESSION: 1. No central pulmonary embolism. Evaluation [...] for this examination. Narrative 06/22/2017 5:20 PM POWDER LINE REPAIRER EXAMINATION: CT chest with contrast - pulmonary [...] Blancas M.D. Constantin Blancas M.D. Radiologist RT:rt [facility] Procedure Note Constantin Blancas MD - 06/22/2017 [...] Blancas M.D. Constantin Blancas M.D. Radiologist RT:rt [facility] IMPRESSION: 1. No central pulmonary embolism. Evaluation [...] Indicated MRSA 06/28/2022 06/28/2022 Insurance MEDICARE C [id number] Advance Directives * Full Code (Latest [...] measures to stabilize the patient. Care Teams Investigator Internal Affairs Relationship Specialty Start Date End Date Joselito Lazo MD [address] [place] [address] PCP - General Internal Medicine 06/16/18
--- OUTSIDE RECORDS SUMMARY | 2025-03-22 19:52 | XMS_ITS | Clinical Summary ---
Author Organization [facility] [address] [place] [address] Professional Copeland Address [address] [place] [id number] Care Team Providers Care Control And Recovery Combat Rescue Name Role Phone Domingo Lazo MD Primary Care Provide r Allergies Active Allergy Reactions Criticality Noted Date Comments Hydrocodone Itching Low 02/12/2020 Morphine Unknown 08/15/2021 DERIVATIVES Uhbixhx-Qkr-Ikx Reductase Inhibitors Other (See comments) High 11/23/2016 [...] 07/07/2023 Assessment & Plan (05/04/2024 8:43 AM HEARING AIDE TECHNICIAN): This is a chronic condition which continues [...] sessions. Assessment & Plan (07/07/2023 9:04 AM HEARING AIDE TECHNICIAN): This is a chronic condition which is [...] 09/16/2021 Assessment & Plan (05/04/2024 8:39 AM HEARING AIDE TECHNICIAN): This a chronic condition which continues He feels ready to try and quit He is requesting to try Chantix Chantix ordered Coronary artery disease invo lving cata[place] coronary artery of [place]ata[place] heart without angina pectoris 03/13/2020 Cellulitis 02/14/2020 Renal lesion 02/14/2020 Prostate enlargement 02/14/2020 Coronary artery disease invo lving [place] coronary artery with unstable angina pectoris 02/13/2020 Type 2 diabetes mellitus wit h stage 2 chronic kidney disease, without long-term current use of insulin 02/13/2020 Assessment & Plan (05/04/2024 8:41 AM HEARING AIDE TECHNICIAN): This is a chronic condition which is [...] last dilated eye exam was [facility] in [place] Monofilament foot exam completed. Protective senses intact. Personally reviewed CMP eGFR-69 Kidney function-abnormal Urine microalbumin/creatinine ratio - at goal. Goal is <30. Continue lisinopril Assessment & Plan (07/07/2023 9:02 AM HEARING AIDE TECHNICIAN): This is a chronic condition which is [...] eye exam. last dilated eye exam was [facility] in [place] Monofilament foot exam completed. protective senses intact [...] pain Assessment & Plan (03/31/2023 9:49 AM HEARING AIDE TECHNICIAN): This is a chronic condition which is [...] exam. last dilated eye exam was [facility] in [place] Monofilament foot exam completed. protective senses intact [...] (02/13/2020): Added automatically from request for surgery [id number] Coronary artery disease invo lving [place]ata[place] coronary artery of [place]ata[place] heart without angina pectoris 01/24/2020 Arthritis of left acromioclavicular joint 2018 Overview (12/23/2018): Added automatically from request for surgery [id number] Impingement syndrome of shoulder region 12/24/19 Overview (12/23/2018): Added automatically from request for surgery [id number] Biceps tendinitis 12/23/2018 Overview (12/23/2018): Added automatically from request for surgery [id number] Chronic back pain 09/30/2013 Overview (08/21/2016): Chronic Back Pain Essential hypertension 09/30/2013 Overview (08/21/2016): Hypertension Assessment & Plan (05/04/2024 8:44 AM HEARING AIDE TECHNICIAN): This is a chronic condition which is [...] prescribed. Assessment & Plan (07/07/2023 9:03 AM HEARING AIDE TECHNICIAN): This is a chronic condition which is at goal of less than 140/90 Personally reviewed labs. Continue Lasix, lisinopril, metoprolol Encouraged to monitor weight and B/P at home Encouraged to take medications as prescribed. Assessment & Plan (03/31/2023 9:50 AM HEARING AIDE TECHNICIAN): This is a chronic condition which is at goal of less than 140/90 Personally reviewed labs. Continue lisinopril, Lasix, metoprolol Encouraged to monitor weight and B/P at home Encouraged to take medications as prescribed. Mixed diabetic hyperlipidemi a associated with type 2 diabetes mellitus 09/30/2013 Overview (08/21/2016): Hyperlipidemia Assessment & Plan (05/04/2024 8:42 AM HEARING AIDE TECHNICIAN): This is a chronic condition which is [...] atorvastatin Assessment & Plan (07/07/2023 9:02 AM HEARING AIDE TECHNICIAN): This is a chronic condition which is at goal of LDL less than 70 Continue Zetia, atorvastatin alternating with rosuvastatin Encouraged to eat healthy, include fresh fruits and vegetables daily and avoid eating fried foods more than once per week. Encouraged to take medications as prescribed. Assessment & Plan (03/31/2023 9:49 AM HEARING AIDE TECHNICIAN): This is a chronic condition which is [...] Type Department Care Team Description 03/20/2025 Telephone [facility] Medical Group Diabetes Endocrine Care at [address] [place] [address] Holley Hoffman NP 03/16/2025 Telephone [place] [facility] at [address] [place] [phone] Yoly Shafer MA 02/26/2025 8:30 AM CDT Office Visit [facility] Medical [facility] Orthopedics and Sports Medicine [address] [place] [address] [address] [place] [address] Angel Minor PA Primary osteoarthritis of left shoulder (Primary Dx); Rotator cuff tendonitis, left 02/26/2025 7:43 AM CDT - 02/26/2025 11:59 PM CDT Hospital Encounter [facility] Orthopedics and Sports Medicine [address] [place] [address] [address] [place] [address] Discharge Disposition: Discharge to home or self care 01/11/2025 7:30 AM CDT Office Visit [facility] Diabetes Endocrine Care at [address] [place] [phone] Holley Hoffman NP Class 1 obesity due to excess calories with serious comorbidity and body mass index (BMI) of 34.0 to 34.9 in adult (Primary Dx); Type 2 diabetes mellitus with stage 2 chronic kidney disease, without long-term current use of insulin (HCC); Essential hypertension; Mixed diabetic hyperlipidemia associated with type 2 diabetes mellitus (HCC) 01/11/2025 Orders Only [facility] Orthopedics and Sports Medicine [address] [facility] [address] [place] [address] Won Hutchison MD Acute pain of right shoulder (Primary Dx); Nontraumatic tear of right rotator cuff, unspecified tear extent 01/11/2025 Telephone [facility] Orthopedics and Sports Medicine [address] [facility] [address] [place] [address] Won Hutchison MD 12/27/2024 Results Follow-Up [facility] Diabetes Endocrine Care at [address] [place] [address] Holley Hoffman NP Lipid panel, Albumin Creatinine Ratio, Urine 12/26/2024 Orders Only [facility] Diabetes Endocrine Care at [place] [id number] [facility] [address] [place] [phone] Holley Hoffman NP from Last 3 Months [...] ANGIOGRAPHY AND WITH OR WITHOUT LEFT VENTRICULOGRAM [id number]; Surgeon: Maria Del Carmen Gill MD; Location: [facility]; Service: Cardiovascular; Laterality: N/A; Medical devices from [...] 0.6 oz pur e alcohol) very little [facility] Utilities Answer Date Recorded In the past 12 months has [employer] electric, gas, oil, or water [employer] threatened to shut off services in your home? No 08/30/2024 Social Connection and Isolation Panel Answer Date Recorded In a typical week, how many times do you talk on the phone with family, friends, or neighbors? Three times a week 08/30/2024 How often do you get togethe r with friends or relatives? Three times a week 08/30/2024 How often do you attend [facility] ch or buddhist services? Never 08/30/2024 Do you belong to [...] any time in the past 12 m [facility], were you homeless or living in a care home (including now)? No 08/30/2024 Personal Safety Answer Date Recorded Have you ever been in or are you currently in a harmful physical or emotional relationship or is someone making you feel afraid or unsafe? Denies 08/29/2024 Sex and Gender Information Value Date Recorded Sex Assigned at Not on file Legal Sex Male 2:30 PM HEARING AIDE TECHNICIAN Gender Identity Male 03/12/2022 7:40 AM CDT [...] Discontinued 03/21/2012 Medical Devices Implanted Type Area Church Warden Device Identifier Shelf Expiration Date Model / Serial / Lot Prism Digital [id number] Synergy 2.75mm 16mm 144cm Radiopaque 1 Access Port Inflation - [id number] Implanted:Qty: 1 on 02/13/2020 by Juan Chaudhry MD at [facility] Prism [employer] 05/21/2021 [id number] / / [id number] [employer] Angio-Seal Vip 6fr Closere Device [id number] - [id number] Implanted:Qty: 1 on 08/31/2024 by Maria Del Carmen Gill MD at [facility] 04/03/2025 [id number] / / [id number] Procedures Procedure Name Priority Date/Time Associated Diagnosis Comments WA ARTHROCENTESIS ASPIR&/INJ MAJOR JT/BURSA W/O US Routine [...] 3:04 AM CDT COLONOSCOPY 03/21/2012 12:00 AM HEARING AIDE TECHNICIAN from Last 3 Months or Most Recently Relevant to Health Maintenance Results * WA ARTHROCENTESIS ASPIR&/INJ MAJOR JT/BURSA W/O US (02/26/2025 [...] 6:34 AM CDT FASTING:YES FASTING: YES us Holley Hoffman NP LAB URINE ORDERABLES Final Resu lt [facility] [address] [place] [address] * (ABNORMAL) Lipid panel (12/26/2024 7:31 AM CDT) Pathologist [facility] Cholesterol 151 <200 mg/dL [facility] [...] LDL-C. Eliezer SS et al. BETSY. 2013;310(19): 5475-6759 (http://education.SterraClimb/faq/EVU615) Chol/HDL ratio 5.0(H) <5.0 (calc) [facility] [...] NP LAB BLOOD ORDERABLES Final Resu lt [facility] [address] [facility] [place] [address] * Diabetic Eye Exam (10/06/2024) 10/06/2024 Historical [...] BLOOD ORDERABLES Fin al Result ELÍAS JIMENEZ CORA) [address] [facility] Department [place] [address] * COLONOSCOPY (03/21/2012 12:00 AM HEARING AIDE TECHNICIAN) Anatomical Region Laterality Modality Other Narrative 03/21/2012 12:00 AM HEARING AIDE TECHNICIAN Ordered by an unspecified provider. Procedure Note Provider, MD Jimmy - 03/21/2012 12:00 AM CST PROCEDURE REPORT Patient: WAQAS SANON Account: [id number] Room No: : 1960 Patient Type: [facility] Attend.: Chaim Friedman M.D. Admit Date: 03/21/2012 Dict.: Chaim Friedman M.D. Disch. Date:03/21/2012 NAME OF PROCEDURE: Colonoscopy. HISTORY: 51-year-old male who presents for screening colonoscopy. HISTORY: Well-developed male. Lungs were clear. Cardiovascularexamination was unremarkable. PROCEDURE: Colonoscopy was performed with the [employer] video endoscope.The patient was premedicated by anesthesia. [...] Insurance [facility] MDCR HMO REF [facility] MEDICARE Address: [address] [address] [place] [address] [employer] CHOICE MEDICARE PPO MEDICARE ADVANTAGE [facility] MEDICARE Address: [address] [address] [place] [address] [address] [facility] MEDICARE Address: [address] [address] [place] [address] Advance Directives For more information, please contact: [phone] Documents on File Type Date Recorded Patient Global Transportation Manager Expl anation ADVANCE DIRECTIVE 02/15/2020 11:17 AM Kelly r of [employer] * Full Code (Latest Code Status on File) Date Activated Date Inactivated Comments 08/29/2024 9:11 PM 08/31/2024 5:46 PM * Full Code Date Activated Date Inactivated Comments 02/13/2020 6:51 AM 02/15/2020 4:28 PM Care Teams Control And Recovery Combat Rescue Relationship Specialty Start Date End Date Domingo Lazo MD PCP - General Internal Medicine 11/30/18
--- OUTSIDE RECORDS SUMMARY | 2025-03-22 19:52 | XMS_ITS ---
Author Organization [facility] Address [address] [place] [address] Phone Care Team Providers Care Insole Tacker Name Role Phone Unavailable Unavailable Unavailable Plan of Treatment No Plan of Treatment Recorded Assessments Includes: Assessments for all patient encounters No Assessments Recorded Medical Equipment - Implanted Devices Includes: Current and historical Devices No Medical Equipment Recorded Medications Administered Includes: Administered Medications in patient's chart No Administered Medications Recorded Results Includes: Results from 03/22/2024 through 03/22/2025 No Results Recorded For Specified Dates History of Present Illness History of Present Illness not supported for this document type No History of Present Illness Recorded Social History No Social History Recorded - Smoking Status Unknown Medical History Includes: Medical History in patient's chart No Medical History Recorded Family History Includes: Family History in patient's chart No Family History Recorded Review of Systems Review of Systems not supported for this document type No Review of Systems Recorded Mental Status No Mental Status Recorded Functional Status No Functional Status Recorded Physical Exam Physical Exam not supported for this document type No Physical Exam Recorded Clinical Notes Includes: Signed Clinical Notes starting from 06/05/2022 No Clinical Notes Recorded
--- OUTSIDE RECORDS SUMMARY | 2025-03-22 19:52 | XMS_ITS | Clinical Summary ---
Author Organization [facility] Address [address] [place] [address] Phone Care Team Providers Care Medical Secretary Receptionist Name Role Phone Unavailable Unavailable Unavailable Reason [...]
--- OUTSIDE RECORDS SUMMARY | 2025-03-22 19:53 | XMS_ITS ---
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
--- OUTSIDE RECORDS SUMMARY | 2025-03-22 19:53 | XMS_ITS | Data Portability ---
Author Organization [facility] [employer], Main Office Address [address] [place] [address] Care Team Providers Care Research Assistant Member Name Role Phone SAMMI LAZO Primary Care Provider [phone] SAMMI LAZO Referring Provider EMILEE SOTOMAYOR School Health Assistant KENYA BALTAZAR Real Property Appraiser ANIVAL ARIAS Interior Assemblies Developer Prover HOLLEY FIGUEROA [employer]point Solutions Developer TARSHA DREW Urologist Assessment Encounter Date Assessment Date Assessment LastModified by Organization Details LastModified Time 09/13/2024 09/13/2024 03/27/2024: TG 224 Gluc 114 A1C 6.5 12/17/2021: TSH/FT4: WNL Urine alb 2.6 Chol 132, HDL 34L, TG 182, LDL 72 CMP: BUN 32H A1C 5.7 GGT WNL CBC: WBC 13.2 VIT D 66 Hepatitis panel: Neg 09/17/2022: Dr Ramirez CMP: WNL TG 279 TSH/FT4: WNL VIT D: WNL A1C 6.3 CBC: WNL 01/13/2023:Dr Rainey: A1C 6.0 Insulin 35.8 TG 168 09/24/2023: TG 313 A1C 6.5 PSA 3.2 03/27/2024: TG 224 Gluc 114 A1C 6.5 08/28/2024: [facility] Gluc 125 45 minutes with the patient, labs reviewed, referral provided [email or web address] Not available 09/19/2024 14:07:36 01/02/2025 01/02/2025 03/27/2024: TG 224 Gluc 114 A1C 6.5 12/17/2021: TSH/FT4: WNL Urine alb 2.6 Chol 132, HDL 34L, TG 182, LDL 72 CMP: BUN 32H A1C 5.7 GGT WNL CBC: WBC 13.2 VIT D 66 Hepatitis panel: Neg 09/17/2022: Dr Ramirez CMP: WNL TG 279 TSH/FT4: WNL VIT D: WNL A1C 6.3 CBC: WNL 01/13/2023:Dr Rainey: A1C 6.0 Insulin 35.8 TG 168 09/24/2023: TG 313 A1C 6.5 PSA 3.2 03/27/2024: TG 224 Gluc 114 A1C 6.5 08/28/2024: [facility] Gluc 125 12/26/2024: A1C 6.9 PSA 3.2 45 minutes with the patient, labs reviewed, referral provided [email or web address] Not available 01/02/2025 10:19:06 02/07/2025 02/07/2025 03/27/2024: TG 224 Gluc 114 A1C 6.5 12/17/2021: TSH/FT4: WNL Urine alb 2.6 Chol 132, HDL 34L, TG 182, LDL 72 CMP: BUN 32H A1C 5.7 GGT WNL CBC: WBC 13.2 VIT D 66 Hepatitis panel: Neg 09/17/2022: Dr Ramirez CMP: WNL TG 279 TSH/FT4: WNL VIT D: WNL A1C 6.3 CBC: WNL 01/13/2023:Dr Rainey: A1C 6.0 Insulin 35.8 TG 168 09/24/2023: TG 313 A1C 6.5 PSA 3.2 03/27/2024: TG 224 Gluc 114 A1C 6.5 08/28/2024: [facility] Gluc 125 12/26/2024: A1C 6.9 PSA 3.2 [email or web address] Not available 02/05/2025 17:32:35 02/12/2025 02/12/2025 By history and exam the patient is noted to have left lower extremity pain localized in the midportion of the lower leg laterally. X-rays today appear to be fairly unremarkable however there is some cortical thickening along the lateral portion of the tibia midway down the shaft lateral view also shows some cortical irregularity and thickening localized to the same region. No evidence of subchondral destruction or marrow irregularities noted. Knee joint is otherwise well-maintained. The fibula is normal in appearance no soft tissue abnormalities were seen. We talked about this in detail today because of this slight thickening of the medial and posterior portion of the tibia cortex I have recommended an MRI scan for further evaluation. This will give us a better look at the soft tissues in the bony structures. For now he will avoid heavy repetitive activities. I will see him back when that MRI is done he voiced understanding and agree with the above plan he will call for any further problems difficulties or questions. Not available 02/12/2025 13:13:47 03/13/2025 03/13/2025 The patient has a strain of the musculature of the midportion of the left lower leg as described. We talked about treatment options today in detail we are going to get him set up with a course of physical therapy and oral prednisone. Apparently does have some chronic kidney disease we will avoid NSAIDs for now. We will give him a couple of months to see how treatment goes. He was also advised to stop smoking if he can. The patient has issues with chronic pain he has been following with pain management for many years in his on oxycodone 10 mg every 8 hours chronically as well. If his symptoms start to worsen or change he is instructed call he voiced understanding agrees above plan. Not available 03/13/2025 12:16:17 Plan of Treatment Reminders Order Date Submit Date Provider Last Modified By Organization Details Last Modified Time Details Appointments Any 15 2025 08:45A Sandra booth MD Not available Not available Not available Lab lipid panel, serum 2024 025 [facility] (Lab), [facility] [address], [place], [address], 02/08/2025 12:31:03 CMP, serum or plasma 2024 025 [facility] (Lab), [facility], [place], [address], 02/08/2025 12:31:04 CBC w/ auto diff 2024 025 [facility] (Lab), [address] [facility] [address], [place], [address], 02/08/2025 12:31:04 T4, free, serum 2024 025 [facility] (Lab), [address] [facility] [address], [place], [address], 02/08/2025 12:31:04 TSH, ultra-sen sitive, serum 2024 025 [facility] (Lab), [facility] [address], [place], [address], 02/08/2025 12:31:04 HbA1c (hemoglob in A1c), blood 2024 025 [facility], [address], [place], [address], 02/07/2025 09:58:47 microalbu min/creat inine, mass ratio, urine 2024 025 [facility], [address], [place], [address], 02/07/2025 09:58:48 HbA1c (hemoglob in A1c), blood 2024 025 [facility], [address], [place], [address], 01/02/2025 10:44:23 microalbu min/creat inine, mass ratio, urine 2024 025 [facility], [address], [place], [address], 01/02/2025 10:44:24 lipid panel, serum [address] (Lab), [address], [place], [address], 01/03/2025 10:15:34 CMP, serum or plasma [address] (Lab), [address] [place] [address] [address], [place], [address], 01/03/2025 10:15:35 CBC w/ auto diff [address] (Lab), [address] [place] [address] [address], [place], [address], 01/03/2025 10:15:35 T4, free, serum [address] (Lab), [address] [place] [address] [address], [place], [address], 01/03/2025 10:15:35 TSH, ultra-sen sitive, serum [address] (Lab), [address] [place] [address] [address], [place], [address], 01/03/2025 10:15:35 HbA1c (hemoglob in A1c), blood 2024 025 [facility], [address], [place], [address], 12/28/2024 14:15:40 microalbu min/creat inine, mass ratio, urine 2024 025 [place] [address] [facility], [address], [place], [address], 03/12/2025 12:31:09 PSA, total + free, serum or plasma 2024 025 [facility], [address], [place], [address], 12/28/2024 14:15:38 lipid panel, serum [address] (Lab), [address] [facility] [address], [place], [address], 03/13/2025 08:59:15 CMP, serum or plasma [address] (Lab), [facility] [address], [place], [address], 03/13/2025 08:59:15 CBC w/ auto diff [address] [place] [address] (Lab), [facility] [address], [place], [address], 03/13/2025 08:59:15 T4, free, serum [address] [place] [address] (Lab), [facility] [address], [place], [address], 03/13/2025 08:59:15 TSH, ultra-sen sitive, serum [address] [place] [address] (Lab), [facility] [address], [place], [address], 03/13/2025 08:59:15 Referral physical therapist referral - patient to schedule 2024 025 Not available 03/13/2025 12:18:56 gastroent erologist referral - Please call patient to schedule an appointme nt. Thank you. 2024 025 LOR caballero MD, [address] [facility] [address], [place], [address], 02/12/2025 13:20:30 orthopedi c spine surgeon referral - Please call patient to schedule an appointme nt. Thank you. 2024 025 ANTWAN Pond MD, [address] [facility], [address], [place], [address], 02/12/2025 13:18:20 nephrolog ist referral - Please call patient to schedule an appointme nt. Thank you. 2024 025 LOR Villa MD (Nephrology, [address], [address], [place], [address], 02/12/2025 13:15:29 podiatris t referral - Please call patient to schedule an appointme nt. Thank you. 2024 025 ANTWAN Salvador DPM, [address], [address], [place], [address], 02/08/2025 11:08:34 pulmonolo gist referral - Please call patient to schedule an appointme nt. Thank you. 2024 025 LOR CLEMONSC, [address], [place], [address], 02/12/2025 13:25:18 nephrolog ist referral - Please call patient to schedule an appointme nt. Thank you. 2024 025 LOR Villa MD (Nephrology, [address], [address], [place], [address], 01/09/2025 12:09:22 gastroent erologist referral - Please call patient to schedule an appointme nt. Thank you. 2024 025 LOR caballero MD, [address], [address], [place], [address], 01/08/2025 10:29:41 podiatris t referral - Please call patient to schedule an appointme nt. Thank you. 2024 025 ANTWAN Salvador DPM, [address], [address], [place], [address], 01/02/2025 16:24:35 pulmonolo gist referral - Please call patient to schedule an appointme nt. Thank you. 2024 025 LOR CLEMONSC, [address], [place], [address], 01/08/2025 10:48:42 nephrolog ist referral - Please call patient to schedule an appointme nt. Thank you. 2024 025 [email or web address] Madhav Villa MD (Nephrology, [address], [address], [place], [address], 03/19/2025 12:09:46 gastroent erologist referral - Please call patient to schedule an appointme nt. Thank you. 2024 025 [email or web address] Victoriano caballero MD, [address] [facility] [address], [address], [place], [address], 03/19/2025 12:09:47 podiatris t referral - Please call patient to schedule an appointme nt. Thank you. 2024 025 [email or web address] Gaurav Lopez DPM, [address] [facility], [facility] [address], [place], [address], 12/13/2024 12:07:26 pulmonolo gist referral - Please call patient to schedule an appointme nt. Thank you. 2024 025 [email or web address] Kenya BROWN, [address] [facility] [address], [place], [address], 03/12/2025 08:51:24 Procedures None recorded. Surgeries None recorded. Imaging XR, tibia + fibula 2024 025 [facility] [place], [address] [facility] [address], [place], [address], 02/12/2025 13:16:08 MRI, lower leg, w/o contrast - Please give patient disc [address] [facility], [address], [place], [address], 03/07/2025 17:37:37 US, duplex, venous, lower extremity - STAT hold and call, Dr Cliff booth 2024 025 [facility], [address], [place], [address], 02/07/2025 11:41:46 Medication Orders prednison e 10 mg tablets in a dose pack 2024 025 [id number], [address] [place], [place], [id number], 03/13/2025 12:18:56 amoxicill in 875 mg-potass ium clavulana te 125 mg tablet 2024 025 [email or web address] [id number] [place], [place], [id number], 02/07/2025 09:37:43 Patient TargetsNo targets recorded. Patient InstructionsNo instructions recorded. Reason for Referral Shallot Cleaner Referral for Type 2 diabetes mellitus without complication Please call patient to schedule an appointment. Thank you. Referring Physician: Sammi Lazo, Internal Medicine, Encounter Date: 09/13/2024 Spinning Machine Operator Referral for Ch ronic kidney disease Please call patient to schedule an appointment. Thank you. Referring Physician: Sammi Lazo Internal Medicine, Encounter Date: 09/13/2024 Real Property Appraiser Referral for M ultiple nodules of lung Please call patient to schedule an appointment. Thank you. Referring Physician: Sammi Lazo Internal Medicine, Encounter Date: 09/13/2024 Assistant Auto Center Manager Referral for Steatotic liver disease Please call patient to schedule an appointment. Thank you. Referring Physician: Sammi Lazo Internal Medicine, Encounter Date: 09/13/2024 Shallot Cleaner Referral for Type 2 diabetes mellitus without complication Please call patient to schedule an appointment. Thank you. Referring Physician: Sammi Lazo Internal Medicine, Encounter Date: 01/02/2025 Spinning Machine Operator Referral for Ch ronic kidney disease Please call patient to schedule an appointment. Thank you. Referring Physician: Sammi Lazo Internal Medicine, Encounter Date: 01/02/2025 Real Property Appraiser Referral for M ultiple nodules of lung Please call patient to schedule an appointment. Thank you. Referring Physician: Sammi Lazo Internal Medicine, Encounter Date: 01/02/2025 Assistant Auto Center Manager Referral for Steatotic liver disease Please call patient to schedule an appointment. Thank you. Referring Physician: Smami Lazo Internal Medicine, Encounter Date: 01/02/2025 Shallot Cleaner Referral for Type 2 diabetes mellitus without complication Please call patient to schedule an appointment. Thank you. Referring Physician: Sammi Lazo Internal Medicine, Encounter Date: 02/07/2025 Spinning Machine Operator Referral for Ch ronic kidney disease Please call patient to schedule an appointment. Thank you. Referring Physician: Sammi Lazo Internal Medicine, Encounter Date: 02/07/2025 Real Property Appraiser Referral for M ultiple nodules of lung Please call patient to schedule an appointment. Thank you. Referring Physician: Sammi Lazo Internal Medicine, Encounter Date: 02/07/2025 Assistant Auto Center Manager Referral for Steatotic liver disease Please call patient to schedule an appointment. Thank you. Referring Physician: Sammi Lazo Internal Medicine, Encounter Date: 02/07/2025 Orthopedic Spine Surgeon Ref erral for Pain in left lower limb Please call patient to schedule an appointment. Thank you. Referring Physician: Sammi Lazo Internal Medicine, Encounter Date: 02/07/2025 Physical Therapist Referral for Pain of left calf patient to schedule Referring Physician: [address], Orthopedic Surgery, Encounter Date: 03/13/2025 Results Created Date Observation Date Name Description Value Unit Range Abnormal Flag Note LastModifiedBy Organization Detail LastModifiedTime 12/27/1912/28/2024 PSA (FREE AND TOTAL ) PSA, total 3.2 NG/mL < or = 4.0 Not Available [facility] [address] [place], [address], 12/28/2024 14:15:38 12/27/1912/28/2024 PSA (FREE AND TOTAL ) PSA, free 0.9 NG/mL Not Available [facility] [address] [place], [address], 12/28/2024 14:15:38 12/27/1912/28/2024 PSA (FREE AND TOTAL ) PSA, % free 28 %_(ca lc) >25 PSA(n g/mL) Free PSA(% ) Estim ated( x) Proba bilit y of Cance r(as% ) 0-2.5 (*) Appro x. 1 2.6-4 .0(1) 0-27( 2) 24(3) 4.1-1 0(4) 0-10 56 11-15 28 16-20 20 21-25 16 >or =26 8 >10(+ ) N/A >50 Refer ences :(1)C leonardalo na et al.:U rolog y 60: 469-4 74 (2001 ) (2)Patsy zhou et al.:J .Urol 168: 922-9 25 (2001 ) Free PSA(% ) Sensi tivit y(%) Speci ficit y(%) < or = 25 85 19 < or = 30 93 9 (3)Patsy zhou et al.:J AMA 277: 1452- 1455 (1996 ) (4)Patsy zhou et al.:J AMA 279: 1542- 1547 (1997 ) (x)Th fred estim ates vary with age, ethni city, famil y histo ry and GISSELLE resul ts. (*)Th e diagn ostic usefu lness of % Free PSA has not been estab lishe d in patie nts with total PSA below 2.6 ng/mL (+)In men with PSA above 10 ng/mL , prost ate cance r risk is deter mined by total PSA alone . The Total PSA value from this assay syste m is stand ardiz ed again st the equim olar PSA stand jacqueline. The test resul t will be appro ximat sowmya 20% highe r when carmita red to the WHO-s tanda rdize d Total PSA (Siem ens assay ). Carmita rison of seria l PSA resul ts shoul d be inter prete d with this fact in mind. PSA was perfo rmed using the Beckm an Coult er Immun oassa y metho d. Value s obtai steve from diffe rent assay metho ds canno t be used inter bullock eably . PSA level s, regar dless of value , shoul d not be inter prete d as absol [place] evide nce of the prese nce or absen ce of disea se. Not Available [facility] [id number] [place] [address], [address], 12/28/2024 14:15:38 12/27/19 25 12/28/2024 HEMOG LOBIN A1C hemoglobin A1C 6.9 %_of_ total _HGB <5.7 high For someo ne witho ut known diabe jessica, a hemog lobin A1c value of 6.5% or great er indic ates that they may have diabe jessica and this shoul d be confi rmed with a follo w-up test. For someo ne with known diabe jessica, a value <7% indic ates that their diabe jessica is well contr olled and a value great er than or equal to 7% indic ates subop timal contr ol. A1c targe ts shoul d be indiv idual ized based on durat ion of diabe jessica, age, comor bid condi tions , and other consi derat ions. Curre ntly, no conse nsus exist s regar ding use of hemog lobin A1c for diagn osis of diabe jessica for child orestes. Not Available [facility] [address] [place], [address], 12/28/2024 14:15:40 02/08/2002/07/2025 US, jose raul x, venou s, lower extre mity No observ ation record ed. [facility] [address] [facility] [address], [place], [address], 02/07/2025 11:41:46 02/08/20 25 02/07/2025 US, duple x, venou s, lower extre mity No observ ation record ed. [facility] [address] [facility] [address], [place], [address], 02/07/2025 11:46:01 02/13/20 XR, tibia + fibul a No observ ation record ed. [facility] [address] [facility] [address], [place], [address], 02/12/2025 13:16:06 03/07/20 25 03/06/2025 MRI, lower leg, w/o contr ast No observ ation record ed. [facility] [address], [place], [address], 03/08/2025 09:32:11 Result Notes None recorded. Problems Name Problem SNOMED Code Status Onset Date Resolution Date Notes Provider Name and Address Organization Details Recorded Time Pain in lower limb 45219185 Active neuropat hy, NCS by neurolog y Not Available [facility] 3 03:11:03 Chronic back pain 510321436 Active Not Available [facility] 3 03:11:03 Backache 213732435 Completed Not Available [facility] 3 00:47:55 On examinat ion - painful ear Completed Not Available [facility] 3 00:47:55 Impacted cerumen 04932295 Completed Not Available [facility] 3 00:47:55 Insomnia 644049871 Completed Not Available [facility] 3 00:47:55 Osteoart hritis of finger joint 419101229 Active Not Available [facility] 3 03:11:04 Urinary symptoms 579571264 Completed Not Available [facility] 3 00:47:55 Ulcer of mouth 96992157 Completed Not Available [facility] 3 00:47:56 Hypertri glycerid emia 315839730 Active Shira You CCM null, [email or web address] 4 12:08:34 Otitis externa 3300526 Completed Not Available [facility] 3 00:47:56 Neuropat hy 514826586 Active Dunia Zarate RMA null, [employer] 5 10:05:49 Osteoart hritis 620471225 Completed Not Available [facility] 3 00:47:56 Deep venous thrombos is of lower extremit y 814526937 Active 2012, treated Not Available [facility] 3 03:11:04 Obesity 072355523 Active Not Available [facility] 3 03:11:04 Coronary atherosc lerosis 765025236 Active Not Available [facility] 3 03:11:04 Cough 03081189 Completed Shweta Mann MA null, [employer] 4 12:54:51 Coronary arterios clerosis 59428318 Completed Sammi zhou MD [address] [facility], [place], [address] , [employer] [facility] 5 09:58:49 Hyperlip idemia 50100925 Active Sammi zhou MD [address], [address], [place], [address] , [email or web address] 5 17:29:30 Essentia l hyperten claudia 33208539 Active Not Available [facility] 3 03:11:04 Rhinitis 17369446 Completed Not Available [facility] 3 00:47:58 Sleep apnea 15965164 Active Not Available [facility] 3 03:11:04 Tussive syncope 17880931 Completed Not Available [facility] 3 00:47:58 Nicotine dependen ce 43230475 Active 2020 Shira You CCM null, [employer] [facility] 4 12:05:37 Plantar fasciiti s of left foot 85240151114 369141 Active 2020 Not Available [facility] 3 03:11:03 Equinus contract ure of the ankle 744670482 Active 2020 Not Available [facility] 3 03:11:04 Long-ter m drug therapy Active 2021 Not Available [facility] 3 03:11:04 Type 2 diabetes mellitus without complica tion 781480747 Active 2021 Sammi zhou MD [address], [address], [place], [address] , [employer] [facility] 5 17:29:30 Alonso hematuri a 889161122 Active 2021 Not Available [facility] 3 03:11:04 Benign prostati c hyperpla zurdo with outflow obstruct ion 178778924 Active 2021 Not Available [facility] 3 03:11:04 Ureteric stone 27282240 Active 2021 Not Available [facility] 3 03:11:04 Solitary nodule of lung 036220710 Active 2021 Not Available [facility] 3 03:11:04 Low back pain 719491981 Active 2021 Sammi hzou MD [address], [address], [place], [address] , [employer] [facility] 5 17:29:31 Liver enzymes outside referenc e range 968087661 Active 2021 Not Available [facility] 3 03:11:04 Uncontro lled type 2 diabetes mellitus 937044258 Active 2021 Shira You CCM null, [employer] [facility] 4 12:05:39 Pain of right hip joint 00426005540 9102 Active 2021 Sammi zhou MD [address], [address], [place], [address] , [facility] [employer] [facility] 5 17:29:32 Unsteady when walking 31624595 Active 2021 Not Available [facility] 3 03:11:04 Vitamin D deficien cy 20819148 Active 2022 Sammi zhou MD [address], [address], [place], [address] , [facility] [employer] [facility] [employer] [facility] 5 17:29:31 Thromboc ytosis 2776045 Active 2022 Sammi zhou MD [address], [address], [place], [address] , [facility] 5 17:29:32 Coronary arterios clerosis 02905137 Active 2022 Sammi zhou MD [address], [address], [place], [address] , [email or web address] [facility] [employer] [facility] 5 09:58:48 Persiste nt insomnia 952049444 Active 2022 Sammi zhou MD [address], [address], [place], [address] , [facility] 5 17:29:30 Multiple nodules of lung 874558476 Active 2022 Sammi zhou MD [address], [address], [place], [address] , [facility] [employer] [facility] [employer] [facility] 5 17:29:30 Benign prostati c hyperpla zurdo without outflow obstruct ion 207604016 Active 2022 Sammi zhou MD [address], [address], [place], [address] , [facility] [employer] [facility] 5 17:29:31 Chronic obstruct teresa pulmonar y disease 04163908 Active 2022 Sammi zhou MD [address], [place], [address] , [facility] 5 17:29:31 Chronic kidney disease 862228165 Active 2022 Sammi zhou MD [address], [place], [address] , [facility] 5 17:29:31 Steatoti c liver disease 939407796 Active 2022 Sammi zhou MD [address], [place], [address] , [facility] 5 17:29:31 Obstruct teresa sleep apnea syndrome 48045756 Active 2022 Sammi zhou MD [address], [place], [address] , [facility] 5 17:29:32 Lesion of skin of face 40271287816 6 Active 2022 Not Available [facility] 3 03:11:03 Smoker 14818643 Active 2022 Sammi zhou MD [address], [address], [place], [address] , [facility] 5 17:29:31 Cough variant asthma 451142165 Active 2022 Radha Nguyen [place] null, [place] [facility] 3 13:02:24 Upper respirat ory infectio n 64069627 Active 2023 Shweta Mann MA null, [place] [facility] 4 10:57:14 Cough 53196053 Active 2023 Shweta Mann [place] null, [place] [facility] 4 12:54:50 Skin lesion 84262976 Active 2023 Sammi zhou MD [address], [place], [address] , [facility] 5 17:29:32 Hearing loss 93251960 Active 2023 Sammi zhou MD [address], [place], [address] , [facility] 4 15:38:57 Disorder of prostate 55640847 Active 2023 Sammi zhou MD [address], [place], [address] , [facility] 5 17:29:30 Abnormal findings on diagnost ic imaging of lung 426603235 Active 2023 Shweta Mann MA null, [facility] 4 10:33:37 Squamous cell carcinom a of skin 458916182 Active 2023 Chaz vega MD [address], [place], [address] , [facility] 4 14:22:27 Lower urinary tract symptoms due to benign prostati c hypertro phy 15938564856 101 Active 2023 Isadora Renteria CMA null, [facility] 4 14:37:34 Pain of right lower leg 08419900826 9108 Active 2023 Armand Mcfarlane CMA null, [facility] 4 13:41:53 Pain of right shoulder joint 49572336737 682191 Active 2024 Sammi zhou MD [address], [place], [address] , [facility] 5 17:29:32 Decrease d hearing 546514088 Active 2024 Sammi zhou MD [address], [place], [address] , [facility] [employer] [facility] 5 09:57:03 Impacted cerumen of bilatera l ears 55327265794 62338 Active 2024 Sammi zhou MD [address], [place], [address] , [facility] [employer] [facility] 5 09:05:54 Tinnitus of right ear 04667682834 08 Active 2024 Sammi zhou MD [address], [place], [address] , [facility] [employer] [facility] 5 09:11:56 Pain in left lower limb 162300544 Active 2024 Sammi zhou MD [address], [place], [address] , [facility] 5 09:55:19 Pain of left calf [id number] 32056 Active 2024 BENJAMIN Shaw, [facility] 5 09:27:22 Strain of calf muscle 729513400 Active 2024 ADITI Haley [address], [place], [address] , [facility] [employer] [facility] 5 12:16:30 Notes:Medical History: Right tinnitus Rhinitis to multiple environmental allergens (+) Aspergillus IgE Eosinophils 370/uL IgE 117 IU/mL Alpha-1 antitrypsin PiMM 140 mg% Nicotine dependence Cough-variant asthma 1.2 mm RLL superior segment pulm nodule Bibasilar atelectasis Obesity with mild OSAHS, AHI = 6, 06/17/20, off CPAP c/o [facility] and supplies c/o [facility] Hypertension Mixed hyperlipidemia T2DM with neuropathy CAD s/p [facility] Fatty liver Transaminitis Right simple renal cyst CKD BPH DVT Lumbar DDD Osteoarthritis Procedure History: T&A 1982 Cholecystectomy LAD stent 2014, 2018 Problem Notes None recorded. Procedures Surgical History Date Name Laterality Status Provider Name and Address Organization Details Recorded Time 03/23/20 Medicare Wellness CPT Code, subsequent completed Devin Spann LPN [facility] 03/23/2024 08:30:23 12/20/19 24 Chronic care management services completed Trang Ch [facility] 12/20/2023 16:23:16 11/17/19 24 Chronic care management services completed Trang Ch [facility] 11/17/2023 17:06:00 10/12/19 24 Chronic care management services completed Shira You [facility] 10/12/2023 15:38:32 09/28/19 24 Excision Cyst Multilayer completed Chaz avery MD [address] [place] [address], [address], [facility] 09/28/2023 13:35:55 09/13/19 24 Chronic care management services cancelled Shira You [facility] 09/13/2023 17:06:32 01/27/20 23 Medicare Wellness CPT Code, subsequent completed Jessenia Llanes RN [facility] 01/26/2023 09:42:18 06/09/19 23 total replacement of hip completed LATANYA Ruth [facility] 09/22/2022 08:57:02 02/13/20 20 Cardiovascular Surgery completed Not Available [facility] 07/15/2022 00:43:48 Cardiovascular Surgery completed Cande Lee CNA [facility] 02/12/2025 09:46:05 Colonoscopy completed Not Available [facility] 07/15/2022 00:43:48 Orthopedic Surgery completed Not Available [facility] 07/15/2022 00:43:48 Gallbladder Surgery completed Not Available [facility] 07/15/2022 00:43:48 Appendectomy completed Not Available [facility] 07/15/2022 00:43:48 Tonsillectomy completed Not Available [facility] 07/15/2022 00:43:48 decompression of lumbar spine completed Not Available [facility] 07/15/2022 00:43:48 Kidney Stones completed Not Available [facility] 07/15/2022 00:43:48 Imaging Results None recorded. Procedure Notes None recorded. Medical Equipment None Reported. Allergies Allergen ID Allergen Name Allergen Category Reaction Reaction Severity Criticality Documentation Date Start Date Code Code System Note Provider Name and Address Organization Details Recorded Time 20329 No known allergy (situatio n) Not available Not available Not available Not available 12/20/2023 [id number] SNOMED Dunia Zarate, LATANYA null, [place] [facility] [facility] 5 16:08:29 No known drug allergies Medications Name Sig Start Date Stop Date Status Note LastModified by Organization Details LastModified Time onetouch ultra strp active Not Available Not Available Not Available celecoxib 200 mg capsule TAKE 1 CAPSULE BY MOUTH TWICE DAILY 10/13 completed Not Available Not Available Not Available cyclobenz aprine 10 mg tablet Take 1 tablet 3 times a day by oral route. active Not Available Not Available No t Available amoxicill in 500 mg capsule TAKE ONE CAPSULE BY MOUTH TWICE DAILY FOR 10 DAYS 10/04 completed Not Available Not Available Not Available latanopro st 0.005 % eye drops INSTILL 1 DROP IN BOTH EYES AT BEDTIME active Not Available Not Available No t Available atorvasta tin 40 mg tablet Take 1 tablet every day by oral route. active Not Available Not Available No t Available metformin 500 mg tablet Take 1 tablet twice a day by oral route. active Not Available Not Available No t Available BD Alcohol Swabs Apply 1 pad every day by topical route for 90 days. 10/24 completed Not Available Not Available Not Available carvedilo l 6.25 mg tablet take twice a day 08/03 completed Not Available Not Available Not Available doxycycli ne hyclate 100 mg capsule active Not Available Not Available Not Available atorvasta tin 20 mg tablet active Not Available Not Available Not Available carvedilo l 12.5 mg tablet TK 1T PO BID 2019 active Not Available Not Available Not Avai lable amitripty line-chlo rdiazepox winsome 12.5 mg-5 mg tablet Take 1 tablet twice a day by oral route. 08/12 completed Not Available Not Available Not Available clindamyc in HCl 300 mg capsule active Not Available Not Available Not Available trazodone 50 mg tablet TAKE 1 TABLET BY MOUTH EVERY DAY AT BEDTIME NEEDED FOR INSOMNIA active Not Available Not Available No t Available cetirizin e 10 mg tablet TAKE 1 TABLET BY MOUTH DAILY NEEDED 09/13 completed Not Available Not Available Not Available azithromy janina 250 mg tablet FOLLOW PACKAGE DIRECTIO NS 08/23 completed Not Available Not Available Not Available aspirin 325 mg tablet Take 1 tablet every day by oral route. 02/03 completed Not Available Not Available Not Available benzonata te 200 mg capsule Take 1 capsule 3 times a day by oral route. 12/14 completed Not Available Not Available Not Available metoprolo l succinate ER 50 mg tablet,ex tended release 24 hr Take 1 tablet every day by oral route. 05/21 completed increase d to 100mg Not Available Not Available Not Available hydrocodo ne 5 mg-acetam inophen 325 mg tablet 05/20 completed Not Available Not Available Not Available lisinopri l 20 mg tablet TAKE 1 TABLET BY MOUTH EVERY DAY AT 9AM 12/19 completed Not Available Not Available Not Available prednison e 20 mg tablet Take by oral route. active Not Available Not Available No t Available metoprolo l succinate ER 100 mg tablet,ex tended release 24 hr TAKE 1 TABLET BY MOUTH EVERY DAY AT 9 AM active Not Available Not Available No t Available Accu-Chek Softclix Lancets 10/24 completed Not Available Not Available Not Available penicilli n V potassium 500 mg tablet TK 1 T PO QID TAT active Not Available Not Available No t Available amlodipin e 2.5 mg tablet Take 1 tablet every day by oral route. 09/13 completed Not Available Not Available Not Available metronida zole 500 mg tablet 08/03 completed Not Available Not Available Not Available clopidogr el 75 mg tablet take 1 po qd 03/21 completed Not Available Not Available Not Available ciproflox acin 500 mg tablet TAKE 1 TABLET BY MOUTH EVERY 12 HOURS FOR 6 DAYS 12/19 completed Not Available Not Available Not Available sulfameth oxazole 800 mg-trimet hoprim 160 mg tablet TAKE 1 TABLET BY MOUTH TWICE DAILY FOR 10 DAYS 09/22 completed Not Available Not Available Not Available hydrocodo ne 10 mg-acetam inophen 325 mg tablet TAKE 1 TABLET BY MOUTH FOUR TIMES A DAY active Not Available Not Available No t Available omeprazol e 40 mg capsule,d elayed release active Not Available Not Available Not Available aspirin 81 mg tablet,de layed release Take 1 tablet every day by oral route. 01/03 completed Not Available Not Available Not Available carvedilo l 3.125 mg tablet take one tablet twice a day 06/15 completed Not Available Not Available Not Available fenofibra te micronize d 134 mg capsule qd 11/15 completed Not Available Not Available Not Available prednison e 10 mg tablets in a dose pack Take 1 tab by mouth, 3 times a day for 3 daysTake 1 tab by mouth 2 times a day for 2 daysTake 1 tab by mouth once a day for 1 day 2024 active Not Available Not Available Not Avai lable meloxicam 7.5 mg tablet TAKE 1 TABLET BY MOUTH ONCE DAILY 08/29 completed stopped in hosp Not Available Not Available Not Available Zofran 4 mg tablet Take 1 tablet twice a day by oral route as needed for 15 days. 10/19 completed Not Available Not Available Not Available oxycodone -acetamin ophen 5 mg-325 mg tablet TAKE 1-2 TABLETS BY MOUTH EVERY 4 HOURS NEEDED 09/22 completed Not Available Not Available Not Available famotidin e 20 mg tablet Take 1 tablet twice a day by oral route as needed. 09/13 completed Not Available Not Available Not Available amitripty line 25 mg tablet TAKE 1 TABLET BY MOUTH EVERY DAY AT BEDTIME active Not Available Not Available No t Available oxycodone -acetamin ophen 10 mg-325 mg tablet TAKE 1 TABLET BY MOUTH EVERY 8 HOURS NEEDED active Not Available Not Available No t Available tamsulosi n 0.4 mg capsule TAKE 1 CAPSULE BY MOUTH EVERY DAY 12/16 completed Not Available Not Available Not Available trazodone 100 mg tablet TAKE 1 TABLET BY MOUTH EVERY DAY AT BEDTIME active Not Available Not Available No t Available OneTouch Ultra Test strips USE TO TEST BLOOD SUGAR EVERY MORNING BEFORE BREAKFAS T active Not Available Not Available No t Available Kenalog 10 mg/mL suspensio n for injection In office injectio n administ ered by the provider 03/14 completed [facility]: [id number] - Not Available Not Available Not Available benzonata te 100 mg capsule 10/17 completed Not Available Not Available Not Available cephalexi n 500 mg capsule Take 1 capsule 4 times a day by oral route. 09/22 completed Not Available Not Available Not Available metformin 1,000 mg tablet TAKE 1 TABLET BY MOUTH TWICE DAILY 02/02 completed Not Available Not Available Not Available lisinopri l 10 mg tablet Take 1 tablet every day by oral route. active Not Available Not Available No t Available warfarin 5 mg tablet TK 1 T PO ON Wednesday Y WEDNESDAY AND WEDNESDAY TK 2 TS ON WEDNESDAY AND WEDNESDAY active Not Available Not Available No t Available nicotine 21 mg/24 hr daily transderm al patch Apply 1 patch every day by transder mal route as directed for 90 days. 07/15 completed Not Available Not Available Not Available nitroglyc syeda 0.4 mg sublingua l tablet DISSOLVE ONE TABLET UNDER TONGUE NEEDED FOR CHEST PAIN EVERY 5 MINUTES FOR UP TO 3 DOSES 02/12 completed Not Available Not Available Not Available omeprazol e 20 mg capsule,d elayed release TAKE ONE CAPSULE BY MOUTH EVERY DAY active Not Available Not Available No t Available etodolac 400 mg tablet Take 1 tablet twice a day by oral route. 06/15 completed Not Available Not Available Not Available halobetas ol propionat e 0.05 % topical cream 02/12 completed Not Available Not Available Not Available Nitrostat 0.3 mg sublingua l tablet 06/15 completed Not Available Not Available Not Available furosemid e 20 mg tablet TAKE 1 TABLET BY MOUTH EVERY DAY 09/13 completed Not Available Not Available Not Available ergocalci ferol (vitamin D2) 1,250 mcg (50,000 unit) capsule TAKE 1 CAPSULE BY MOUTH 1 TIME A WEEK 08/23 completed Not Available Not Available Not Available Cheratuss in AC 10 mg-100 mg/5 mL oral liquid 10/17 completed Not Available Not Available Not Available levofloxa janina 750 mg tablet TK 1 T PO QD FOR 7 DAYS 05/13 completed Not Available Not Available Not Available methylpre dnisolone 4 mg tablets in a dose pack FOLLOW PACKAGE DIRECTIO NS 08/23 completed Not Available Not Available Not Available albuterol sulfate HFA 90 mcg/actua tion aerosol inhaler INHALE 1 TO 2 PUFFS BY MOUTH EVERY 4 TO 6 HOURS NEEDED FOR SHORTNES S OF BREATH OR WHEEZING 02/12 completed Not Available Not Available Not Available Cortispor in-TC 3.3 mg-3 mg-10 mg-0.5 mg/mL ear drops,flakita pension INSTILL 3 DROPS IN AFFECTED EAR FOUR TIMES A DAY DIRECTED FOR 10 DAYS active Not Available Not Available No t Available ondansetr on 4 mg disintegr ating tablet DISSOLVE 1 TABLET ON THE TONGUE EVERY 8 HOURS NEEDED FOR NAUSEA 10/13 completed Not Available Not Available Not Available fluticaso ne propionat e 50 mcg/actua tion nasal spray,flakita pension SHAKE LIQUID AND USE 1 SPRAY IN EACH NOSTRIL EVERY DAY 09/13 completed Not Available Not Available Not Available metformin ER 500 mg tablet,ex tended release 24 hr TAKE 2 TABLETS BY MOUTH TWICE DAILY WITH MEALS 08/29 completed Not Available Not Available Not Available calcitrio l 0.25 mcg capsule 08/12 completed Not Available Not Available Not Available loratadin e 10 mg tablet TK 1 T PO QD PRN 05/13 completed Not Available Not Available Not Available amoxicill in 875 mg-potass ium clavulana te 125 mg tablet TAKE 1 TABLET BY MOUTH EVERY 12 HOURS FOR 7 DAYS 02/07 completed Not Available Not Available Not Available neomycin- polymyxin -hydrocor t 3.5 mg-10,000 unit/mL-1 % ear drops,flakita p INSTILL 4 DROPS INTO AFFECTED EAR(S) BY OTIC ROUTE 3 TIMES PER DAY x 4 DAYS 10/17 completed Not Available Not Available Not Available Fenofibra te 134 mg capsule Take 1 capsule every day by oral route. 05/13 completed Not Available Not Available Not Available enoxapari n 100 mg/mL subcutane ous syringe INJECT SUBCUTAN EOUSLY TWICE A DAY active Not Available Not Available No t Available Lexapro 20 mg tablet Take 1 tablet every day by oral route. 10/24 completed Not Available Not Available Not Available ezetimibe 10 mg tablet TAKE 1 TABLET BY MOUTH DAILY AT 9 AM active Not Available Not Available No t Available nicotine 21mg/24hr -14mg/24h r-7mg/24h r daily transderm patches,s equentl Apply 1 patch every day by transder mal route. 07/15 completed Not Available Not Available Not Available cyclobenz aprine 5 mg tablet TK 1 T PO TID PRN active Not Available Not Available No t Available metformin ER 750 mg tablet,ex tended release 24 hr TAKE 2 TABLETS BY MOUTH EVERY MORNING WITH BREAKFAS T 02/12 completed Not Available Not Available Not Available ciproflox acin 0.3 %-dexamet hasone 0.1 % ear drops,flakita pension SHAKE LIQUID AND INSTILL 4 DROPS TO AFFECTED EAR TWICE DAILY 01/02 completed Not Available Not Available Not Available rosuvasta tin 10 mg tablet TK 1 T PO D 05/13 completed Not Available Not Available Not Available rosuvasta tin 20 mg tablet TAKE 1 TABLET EVERY DAY active Not Available Not Available No t Available rosuvasta tin 40 mg tablet TAKE 1 TABLET BY MOUTH EVERY DAY 09/13 completed Not Available Not Available Not Available nitrofura ntoin monohydra te/macroc rystals 100 mg capsule active Not Available Not Available Not Available BD Ultra-Fin e Mini Pen Needle 31 gauge x 3/16 USE TO INJECT WITH OZEMPIC 01/26 completed Not Available Not Available Not Available Accu-Chek Trudi Control Soln solution 10/24 completed Not Available Not Available Not Available atorvasta tin 07/15 completed Not Available Not Available Not Available Vitamin D 1 tablet daily 11/01 completed Not Available Not Available Not Available Vitamin D3 05/13 completed Not Available Not Available Not Available CoQ10 02/12 completed Not Available Not Available Not Available Asprin Ec Low Dose 325mg Daily 02/15 completed Not Available Not Available Not Available lidocaine (PF) 10 mg/mL (1 %) injection solution In office injectio n administ ered by the provider 03/14 completed [facility]: [id number] 6-17 Not Available Not Available Not Available varenicli ne tartrate 0.5 mg tablet TAKE 1 TABLET BY MOUTH WITH A FULL GLASS OF WATER TWICE DAILY X1 MONTH THEN DECREASE TO 1 TABLET PER DAY [id number] 08/29 completed Not Available Not Available Not Available varenicli ne tartrate 0.5 mg (11)-1 mg (42) tablets in a dose pack FOLLOW PACKAGE DIRECTIO NS 08/29 completed Not Available Not Available Not Available FeroSul 325 mg (65 mg iron) tablet TAKE 1 TABLET BY MOUTH EVERY DAY 01/26 completed Not Available Not Available Not Available diclofena c 1 % topical gel APPLY TO THE AFFECTED AREA TOPICALL Y FOUR TIMES DAILY 09/13 completed Not Available Not Available Not Available lidocaine 2 % mucosal jelly in applicato r Take by mucous route. 10/24 completed Not Available Not Available Not Available fenofibri c acid (choline) 135 mg capsule,d elayed release Take 1 capsule every day by oral route. 06/15 completed Not Available Not Available Not Available fenofibri c acid 105 mg tablet Take 1 tablet every day by oral route. 06/15 completed Not Available Not Available Not Available lidocaine 5 % topical ointment 02/12 completed Not Available Not Available Not Available Vascepa 1 gram capsule Take 2 capsules twice a day by oral route for 90 days. 09/22 completed Not Available Not Available Not Available Anoro Ellipta 62.5 mcg-25 mcg/actua tion powder for inhalatio n Inhale 1 puff every day by inhalati on route. 10/24 completed Not Available Not Available Not Available Narcan 4 mg/actuat ion nasal spray Take by nasal route. 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 Not Available Not Available Not Available Ozempic 0.25 mg or 0.5 mg (2 mg/1.5 mL) subcutane ous pen injector active Not Available Not Available Not Available FreeStyle Horacio 14 Day [place] 05/13 completed Not Available Not Available Not Available OneTouch Ultra2 Meter USE TO BLOOD SUGAR ONCE DAILY active Not Available Not Available No t Available OneTouch Delica Plus Lancet 33 gauge USE TO TEST BLOOD SUGAR EVERY MORNING BEFORE BREAKFAS T active Not Available Not Available No t Available Afluria Qd 2019- (36 mos up)(PF)60 mcg (15 mcg x4)/0.5 mL IM syringe active Not Available Not Available Not Available aspirin 81 mg capsule Take by oral route. 02/02 completed Not Available Not Available Not Available Mounjaro 7.5 mg/0.5 mL subcutane ous pen injector INJECT 7.5 MG UNDER THE SKIN ONCE A WEEK 09/13 completed Not Available Not Available Not Available Mounjaro 5 mg/0.5 mL subcutane ous pen injector INJECT 5MG UNDER THE SKIN ONCE EVERY WEEK 01/26 completed Not Available Not Available Not Available Mounjaro 2.5 mg/0.5 mL subcutane ous pen injector ADMINIST ER 2.5MG UNDER THE SKIN EVERY WEEK 01/26 completed Not Available Not Available Not Available Ozempic 0.25 mg or 0.5 mg (2 mg/3 mL) subcutane ous pen injector Inject 0.5 mg every week by subcutan eous route for 30 days. 01/02 completed Not Available Not Available Not Available Vitals Date Recorded Body height Body mass index (BMI) Body weight Body temperature Heart rate Oxygen saturation Oxygen saturation in Arterial blood by Pulse oximetry Pain severity - 0-10 verbal numeric rating [Score] - Reported Systolic And Diastolic Provider Name and Address Organization Details Last Updated DateTime 5 180.34 cm 34.7 kg/m2 357806. 5 g 98.8 [degF] 104 /min 95 % 95 % 7 140/88 mm[Hg] Viridiana Don MA [facility] [employer] 5 16:35:32 Date Recorded Body height Body mass index (BMI) Body weight Body temperature Heart rate Oxygen saturation Oxygen saturation in Arterial blood by Pulse oximetry Pain severity - 0-10 verbal numeric rating [Score] - Reported Systolic And Diastolic Provider Name and Address Organization Details Last Updated DateTime 5 180.34 cm 33.1 kg/m2 298019. 39 g 97.5 [degF] 78.99 /min 96 % 96 % 4 126/68 mm[Hg] DANO Doll [employer] 5 10:22:31 Date Recorded Body height Body mass index (BMI) Body weight Body temperature Pain severity - 0-10 verbal numeric rating [Score] - Reported Heart rate Oxygen saturation Oxygen saturation in Arterial blood by Pulse oximetry Systolic And Diastolic Provider Name and Address Organization Details Last Updated DateTime 180.34 cm 34 kg/m2 699701. 54 g 97.7 [degF] 7 78 /min 97 % 97 % 122/76 mm[Hg] Viridiana Don MA [facility] [employer] [facility] 09:37:26 Date Recorded Body height Body mass index (BMI) Body weight Provider Name and Address Organization Details Last Updated DateTime 02/12/2025 177.8 cm 34.4 kg/m2 799506.17 g Cande JesusBENJAMIN perez [facility] [employer] [facility] 02/12/2025 09:42:13 Date Recorded Body height Body mass index (BMI) Body weight Provider Name and Address Organization Details Last Updated DateTime 03/13/2025 177.8 cm 34.4 kg/m2 005708.17 g Cande Jesus, [facility] Charlie App [facility] [employer] [facility] 03/13/2025 11:11:36 Social History Question Answer Notes LastModified by Cearnaizat ion Details LastModified Time Tobacco Smoking Status Current Every Day Smoker Not Available [facility] 07/15/2022 00:42:18 Do You Have An Advance Directive? Yes MIGRATION.12259 80231 Information not available 07/15/2022 How Many Years Have You Consumed Alcohol? 40 [email or web address] Information not available 03/23/2024 Do You Wear A Helmet When Biking? No Does Not Bike [email or web address] Information not available 03/23/2024 Is Blood Transfusion Acceptable In An Emergency? Yes Information not available 03/23/2024 What Is Your Level Of Caffeine Consumption? Occasional MIGRATION.83299 10648 Information not available 07/15/2022 How Much Tobacco Do You Chew? None MIGRATION.12396 22638 Information not available 07/15/2022 In The 14 Days Before Symptom Onset, Have You Had Close Contact With A Laboratory-confi rmed COVID-19 While That Case Was Ill? No MIGRATION.35387 18441 Information not available 07/15/2022 In The 14 Days Before Symptom Onset, Have You Had Close Contact With A Person Who Is Under Investigation For COVID-19 While That Person Was Ill? No MIGRATION.36448 62002 Information not available 07/15/2022 What Type Of Diet Are You Following? REGULAR MIGRATION.11674 22280 Information not available 07/15/2022 Which Illicit Or Recreational Drugs Have You Used? None MIGRATION.64795 46797 Information not available 07/15/2022 What Is The Highest Grade Or Level Of School You Have Completed Or The Highest Degree You Have Received? [id number] MIGRATION.99402 79740 Information not available 07/15/2022 How Many Days Of Moderate To Strenuous Exercise, Like A Brisk Walk, Did You Do In The Last 7 Days? 0 [email or web address] Information not available 03/23/2024 Have There Been Any Changes To Your Family Or Social Situation? No MIGRATION.67413 38404 Information not available 07/15/2022 What Is The Fluoride Status Of Your Home? Unknown MIGRATION.04646 42929 Information not available 07/15/2022 Are There Any Guns Present In Your Home? No MIGRATION.89905 96827 Information not available 07/15/2022 Do You Use Insect Repellent Routinely? No MIGRATION.71764 11052 Information not available 07/15/2022 [facility] MIGRATION.31939 41477 Information not available 07/15/2022 Advance Directive- Providers Has Reviewed Directive And Consents To Follow Them (insert Provider Name With Any Objectives In Notes Field) Yes [email or web address] Information not available 03/23/2024 Presence Of Domestic Violence No [email or web address] Information not available 03/23/2024 Guns Present In The Home? No [email or web address] Information not available 01/26/2023 Are You Able To Care For Yourself? Yes [email or web address] Information not available 01/26/2023 Are You Blind Or Do Yo Have Difficulty Seeing? No [email or web address] Information not available 01/26/2023 Are You Deaf Or Do You Have Serious Difficulty Hearing? No [email or web address] Information not available 01/26/2023 General Stress Level? Moderate [email or web address] Information not available 03/23/2024 Live Alone Of With Others? With Others [email or web address] Information not available 01/26/2023 Do You Have A Medical Power Of Wool Hat Forming Machine Tender? Yes MIGRATION.31717 43583 Information not available 07/15/2022 What Was The Date Of Your Most Recent Tobacco Screening? 03/13/2025 Information not available 03/13/2025 How Many Children Do You Have? 3 [email or web address] Information not available 03/23/2024 What Is Your Current Pack Years? [email or web address] MIGRATION.72013 34696 Information not available 07/15/2022 Have You Ever Been Counseled For Unhealthy Alcohol Use? No MIGRATION.01610 57385 Information not available 07/15/2022 Do You Have Any Pets? Yes Dog [email or web address] Information not available 03/23/2024 Do You Use Protection During Sex? No Information not available 03/23/2024 What Is Your Relationship Status? MIGRATION.78061 20139 Information not available 07/15/2022 Do You Use Your Seat Belt Or Car Seat Routinely? Yes MIGRATION.38894 16533 Information not available 07/15/2022 Are You Sexually Active? Yes [email or web address] Information not available 03/23/2024 Do You Have Smoke And Carbon Monoxide Detectors In Your Home? Yes MIGRATION.62252 44402 Information not available 07/15/2022 At What Age Did You Start Smoking Tobacco? 14 MIGRATION.13795 52503 Information not available 07/15/2022 Are You Passively Exposed To Smoke? Yes MIGRATION.61310 35895 Information not available 07/15/2022 Are There Any Smokers In Your House? Yes MIGRATION.08611 18633 Information not available 07/15/2022 How Much Tobacco Do You Smoke? 2 PPD Information not available 02/12/2025 What Types Of Sporting Activities Do You Participate In? None MIGRATION.16383 56605 Information not available 07/15/2022 Do You Use Sunscreen Routinely? No MIGRATION.76640 50852 Information not available 07/15/2022 Has Tobacco Cessation Counseling Been Provided? Yes [email or web address] Information not available 03/23/2024 On What Date Was Tobacco Cessation Counseling Provided? 09/13/2024 [email or web address] Information not available 09/13/2024 How Many Years Have You Smoked Tobacco? 50 Information not available 02/12/2025 Have You Recently Traveled Abroad? No MIGRATION.86703 59379 Information not available 07/15/2022 Do You Have Any Dietary Restrictions? No MIGRATION.69702 25185 Information not available 07/15/2022 How Many Days In The Past Year Have You Consumed 5 Or More Drinks? 0 [email or web address] Information not available 03/23/2024 Sex: Male Functional Status Question Answer Note LastModified by Organizat ion Details LastModified Time Do you use any illicit or recreational drugs? No MIGRATION.404295 6984 Information not available 07/15/2022 Do you or have you ever used any other forms of tobacco or nicotine? No MIGRATION.979596 8555 Information not available 07/15/2022 What is your level of alcohol consumption? Occasional MIGRATION.851385 8538 Information not available 07/15/2022 Do you or have you ever used smokeless tobacco? Never used smokeless tobacco MIGRATION.595360 4426 Information not available 07/15/2022 Are you currently employed? 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 Never used electronic cigarettes MIGRATION.357949 0235 Information not available 07/15/2022 What is your exercise level? None MIGRATION.387149 3585 Information not available 07/15/2022 Mental Status Question Answer Note LastModified by [employer] Details LastModified Time Do you feel stressed (tense, restless, nervous, or anxious, or unable to sleep at night)? [id number] pain MIGRATION.940806271 6 Information not available 07/15/2022 Family History Relationship Description Onset Age of this Age Resolved Age Notes LastModified by Organization Details LastModified Time Mother Malignant neoplasm of breast [email or web address] Not available 06/17 09:28:07 Mother Hypertensive disorder Not available 2024 09:44:59 Mother Congestive heart failure [email or web address] Not available 2024 09:36:05 Mother Disorder of lung [email or web address] Not available 2024 09:36:12 Mother Heart disease MIGRATION.847 [id number] Not available 07/15/2022 00:43:50 Unspecified Relation Diabetes mellitus [email or web address] Not available 02/12/2025 09:45:07 Brother Heart disease MIGRATION.414 0899654 Not available 07/15/2022 00:43:50 Brother Coronary artery bypass grafts x 3 [email or web address] Not available 09:28:07 Medical History Condition Response NERVE DISEASE Y BLINDNESS N RHEUMATIC FEVER N KIDNEY STONES N BLADDER PROBLEMS N MRSA N OTHER # 1 N POLIO N LUNG DISEASE/DISORDER Y HISTORY OF DRUG ABUSE N RADIATION / CHEMOTHERAPY N COPD Y Other # 2 N BLOOD DISEASES N EAR OR HEARING PROBLEMS N MUMPS N SHINGLES N BOWEL PROBLEMS N DEPRESSION (INCLUDING POST ) N STROKE/TIA N THYROID DISEASE N ULCERS N BENIGN PROSTATIC HYPERPLASIA N MEASLES N HYPOTENSION N MYOCARDIAL INFARCTION N OBESITY Y GERD/NAUSEA N ANEURYSM N URINARY/BLADDER/KIDNEY PROBLEMS N CORONARY ARTERY DISEASE (CAD) Y Do you have Advance directive? N ADDICTION CONCERNS N ENDOMETRIOSIS N Impotence N USE OF BLOOD THINNERS N SKIN PROBLEMS Y GASTROINTESTINAL DISORDER N PERIPHERAL VASCULAR DISEASE N MUSCLE,JOINT OR BONE PROBLEMS N GASTROINTESTINAL BLEEDING N Do you have a living will? N BLOOD CLOTS Y ASTHMA N CATARACTS N USE OF NSAIDS N ERECTILE DYSFUNCTION N GI PROBLEMS N CHF N Low Testosterone N NEUROPATHY N INFERTILITY N AIDS/HIV N CHEMOTHERAPY / RADIATION N LIVER DISEASE Y MALE HYPOGONADISM N HYPERTENSION Y Deficiency Y TOURETTE'S N ANXIETY DISORDER N BLOOD TRANSFUSION N ANEMIA/BLOOD DISORDER N CHRONIC EAR INFECTIONS N BIPOLAR DISORDER N BRONCHITIS N OSTEOARTHRITIS N TUBERCULOSIS N GLAUCOMA N FOOT PROBLEM N DIVERTICULITIS N CHICKENPOX N SLEEP APNEA Y ALLERGIES/HAYFEVER N INFECTIOUS DISEASE N HEART ARRHYTHMIA N PROSTATE Y INSOMNIA Y HIGH CHOLESTEROL / HYPERLIPIDEMIA Y RHEUMATOID ARTHRITIS N HYPERTHYROIDISM Y EYE PROBLEMS Y EDEMA N CHRONIC PAIN SYNDROME N HYPOTHYROIDISM N CONSTIPATION N CAROTID BLOCKAGE N BACK / NECK PROBLEMS Y ATHEROSCLEROSIS N BREAST PROBLEMS N DIALYSIS N ECZEMA N HISTORY WITH COMPLICATIONS WITH ANESTHES IA ? N FIBROMYALGIA N OSTEOPOROSIS N ARTHRITIS Y Do you have a healthcare POA? N RESPIRATORY PROBLEMS N APPENDICITIS N DIABETES, TYPE Y BAD TEETH N ENT N HEARTBURN / REFLUX N AUTISM SPECTRUM DISORDER (ASD) N HEPATITIS / LIVER DISEASE N PULMONARY DISEASE N GOUT N SLEEP DISORDER N ALZHEIMER'S DISEASE N PAIN N Brain Problems N HERPES N DEMENTIA N HEADACHES/MIGRAINES N SEIZURES/EPILEPSY N VASCULAR DISEASE N PACEMAKER N Blood Disorder Y DIZZINESS N HEART DISEASE/HEART PROBLEMS N KIDNEY DISEASE Y MULTIPLE SCLEROSIS N MENTAL DISORDER/ILLNESS N CARDIAC ARRHYTHMIA N CANCER: SPECIFY N ANESTHESIA COMPLICATIONS N ATRIAL FIBRILLATION N Gall Stones N PULMONARY EMBOLISM N AUTOIMMUNE DISEASE N Immunizations Vaccine Type Date Status Note Provider Nam e and Address Organization Details Recorded Time Influenza, split virus, quadrivalent, preservative 0 completed Shira You CCM null, [place] [employer] [facility] 10/12/2023 15:36:08 tetanus toxoid, unspecified formulation 0 completed Not Available [facility] 12/01/2022 03:11:05 Hep A, adult 0 completed Not Available [facility] 12/01/2022 03:11:05 Hep B, unspecified formulation 0 completed Not Available [facility] 12/01/2022 03:11:05 Hep C 0 completed Not Available [facility] 12/01/2022 03:11:05 pneumococcal polysaccharide PPV23 0 completed Not Available [facility] 12/01/2022 03:11:05 Td (adult), 5 Lf tetanus toxoid, preservative free, adsorbed 0 completed Not Available [facility] 12/01/2022 03:11:05 Influenza, split virus, trivalent, preservative 3 completed Shira You CCM null, [facility] [employer] [facility] 10/12/2023 15:36:08 Influenza, split virus, quadrivalent, PF 0 completed Shira You CCM null, [facility] [employer] [facility] 10/12/2023 15:36:08 Past Encounters Encounter ID Performer Location Encounter Start Date Encounter Closed Date Diagnosis/Indication Diagnosis SNOMED-CT Code Diagnosis ICD10 Code Diagnosis IMO Codes Diagnosis Note [id number] DMITRY Del Rosario-RACHAEL [facility] [address] [address] 07/15/2020 00:00:00 07/15/2020 13:59:19 [id number] Sammi zhou MD [facility] Internal Med [address] [address] 08/14/2020 00:00:00 08/14/2020 15:48:03 [id number] Carlos Church MD [facility] Pulmonolo [address] [address] 10/24/2020 00:00:00 10/24/2020 13:06:57 [id number] Sammi zhou MD [facility] Internal [facility] [address] [address] 12/24/2020 00:00:00 12/24/2020 14:17:43 [id number] Juan Ramon Richardson MD [facility] Urology [address] [address] 01/03/2021 00:00:00 01/03/2021 16:44:54 [id number] [facility] Podiatry [address] [address] 02/03/2021 00:00:00 02/03/2021 16:06:06 [id number] [facility] [address] [address] 02/17/2021 00:00:00 02/17/2021 10:30:24 [id number] Marshal Garrett NP [facility] [address] [address] 02/24/2021 00:00:00 03/05/2021 16:40:13 [id number] Marshal Garrett NP [facility] [address] [address] 03/07/2021 00:00:00 03/07/2021 09:45:22 [id number] Juan Ramon Richardson MD [facility] [address] [address] 03/21/2021 00:00:00 03/21/2021 17:21:47 [id number] Sammi zhou MD [facility] Internal Med [facility] [address] [address] 04/15/2021 00:00:00 04/15/2021 10:23:37 [id number] [facility] [address] [place] [address] 04/24/2021 00:00:00 04/24/2021 13:01:16 [id number] MD NABIL Baird[facility] [place] [address] 07/09/2021 00:00:00 07/09/2021 11:52:21 [id number] MD ANDRES MendozaS_[facility] Internal Med [place] [address] 1 08/12/2021 00:00:00 08/12/2021 12:05:41 [id number] Juan Ramon Richardson MD [facility] Urology [address] [place] [address] 1 09/19/2021 00:00:00 09/19/2021 17:22:22 [id number] Juan Ramon Richardson MD [facility] Urology [address] [place] [address] 1 10/03/2021 00:00:00 10/03/2021 16:48:39 [id number] Juan Ramon Richardson MD S[facility] Urology [address] [place] [address] 1 10/24/2021 00:00:00 10/24/2021 16:42:22 [id number] MD ANDRES MendozaS[facility] Internal Med [place] [address] 1 12/16/2021 00:00:00 12/16/2021 17:29:23 [id number] S_[facility] ic[facility] _ATHENA_M IGRATION_ DEFAULT_1 _1 , 12/18/2021 00:00:00 12/18/2021 12:34:26 [id number] MD NABIL Baird_[facility]G [place] [address] 0 02/02/2022 00:00:00 02/02/2022 11:21:18 [id number] MD ANDRES MendozaS[facility] Internal Med [address] [place] [address] [place] [address] 05/21/2022 00:00:00 05/21/2022 09:44:49 [id number] Sammi zhou MD [facility] [place] [facility] 15 [address] [facility] [address] [address] [place] [address] 09/22/2022 08:49:11 09/22/2022 09:22:27 Screening - NAD [id number] Z13.9 C-scope: 11/27/18: Dr Friedman in 2011, get another referralC- scope: 03/25/2021 : Dr Mcallister, tubular adenoma Do yearly flu shots, declined 05/20/2022 UTD on Tdap 05/17/2009 Got PCV #23 03/14/2020 Get COVID 19 vaccine still does not want it, states that he has heard 'bad things about it', advised to follow all CDC guidelines RTC in 4 monthdo labsER if worseHe did verbalize his understand ing of the above Coronary arteriosclerosis 38831416 I25.10 S/p stents in 201405/29/2019 : Dr Liang, f/u in 2 months 08/21/[address] chest for AAA at [facility] in [place] 06/23/2019 : Seen in ER [facility] for chest pain 02/12/2020 : [facility], s/p stenting of apical segment of LAD Synergy drug eluding stent, to be on dual antiplatel et therapyAdm itted for chest pain, was started on nitro drip and morphineDi d see Dr Emilee Sotomayor cardiologi st [facility] 03/13/2020 Not on ASAOn lasix 20mg dailyOn lisinopril 20mg dailyOn metoprolol ER 100mg daily, filled by Dr Sotomayor 05/20/2022 On NTG See his cardiologi st Dr Sotomayor last OV 09/16/2021 , next in 6 months Hyperlipidemia 24598081 E78.5 Now on rosuvastat in 40mg dailyNot on atorvastat in 40mg dailyNow on vascepa but states that he is not taking this as it is $100 per month 09/22/2022 Get on zetia 10mg daily, his cardiologi st Dr Sotomayor wants him to get thisMore diet and exercise is neededGet labs Type 2 nu betes mellitus without complication [id number] E11.9 On metformin 1000mg bidGet labsOn ozempic, he does want to get on Mounjaro, will d/c the ozempic and get on Mounjaro, he will come for teaching of how to take thisSees Dr Jez Soto podiatry 02/17/2021 Persistent insomnia 1919 23264 G47.09 On trazodoneD oes wellTake only as needed Multiple n odules of lung 461442432 R91.[address] Ramirez in the past, s/p CT chest 11/09/2018 , then was seen by Dr Cleary 11/15/2018 Dr Ramirez 08/17/2022 , f/u in 3 weeks S/p CT 07/19/2019 , near resolution of the nodulesS/P CT chest 12/19/2020 Dr Church last OV 07/09/2021 , next in 01/2022, is to get CT chestt 12/10/2021 Dr Church next apt 02/02/[address] Church 01/23/[address] Church 01/23/2022 Low back pain 025091951 M54.50 On opiates, filled by Pati ClaytonOn flexerillO n celebrex 200mg bid Off amitryptil ine See pain management S/p fall NS Dr Haji 07/21/2021 , states that he would like to get a referral to an 'ortho' spine surgeon, for a 2nd opinion, refer to Dr Duran IPC 07/02/2022 Benign pro static hyperplasia without outflow obstruction [id number] N40.[address] Rust/p greenlight surgeryDr Strope 10/24/2021 urology, s/p MRI sacrum 10/20/2021 , states that he is doing well Smoker 15230552 F17.200 Advised to quit smoking! S/p CT chest on 12/19/2020 Chronic ob structive pulmonary disease 31087688 J44.9 [address] wellDr Church 02/02/2023 Vitamin D deficiency 347 48380 E55.9 Vit D weeklyGive n by Dr Allen BAKER Chronic ki dney disease 055244059 N18.9 S/p US kidney 12/19/2020 Get an apt with Dr Villa IJ again Steatotic liver disease 473343483 K76.[address] Susan GABRIEL liver 01/01/2021 : Fatty liver Dr Victoriano ha 12/25/2021 , f/u in one year, c-scope in 2025 Obstructiv e sleep apnea syndrome 20330636 G47.[address] Church, is on CPAP Thrombocytosis 7924474 D 75.839 Repeat the CBCMay need to see hematology Pain of ri ght hip joint 6612532632 00432 M25.551 Scheduled for R EMILIA on 06/09/2022 , by Dr Troncoso He is cleared by Dr Sotomayor his cardiologi stAwaiting labs, EKG and Xray chest ordered by Dr TroncosoHe will be a moderate risk for the RTHA [id number] Sammi zhou MD [facility] Internal Med [place] [address] [address] 10/13/2022 08:52:44 10/13/2022 09:18:17 Type 2 diabetes mellitus without complication 277502345 E11.9 On metformin 1000mg bidGet labsOn ozempic, he does want to get on Mounjaro, will d/c the ozempic and get on Mounjaro, he will come for teaching of how to take thisSees Dr Jez Soto podiatry 02/17/2021 OV 10/13/2022 :Discussed use of Mounjaro and how to use the pen, no symptoms or MEN2 or pancreatit is, all side effects explained to him, advised to watch for LOW glucose symptoms, also can cut back the metformin to 1000mg dailyGet labs as scheduledK eep apt with 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 He does see the eye MD as per his history [id number] Sammi zhou MD [facility] Internal Med [facility] [address] [address] 01/26/2023 09:21:39 01/26/2023 09:55:16 Type 2 diabetes mellitus without complication 141618008 E11.9 On metformin 1000mg bidGet labsOn ozempic, he does want to get on Mounjaro, will d/c the ozempic and get on Mounjaro, he will come for teaching of how to take thisSees Dr Jez Soto podiatry 02/17/2021 OV 10/13/2022 :Discussed use of Mounjaro and how to use the pen, no symptoms or MEN2 or pancreatit is, all side effects explained to him, advised to watch for LOW glucose symptoms, also can cut back the metformin to 1000mg dailyGet labs as scheduledK eep apt with 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 He does see the eye MD as per his history OV 01/26/2023 :On metformin ER 2 tabs maryOn Jovitao es Liza Rainey 02/05/2023 Screening - NAD 65591907 3 Z13.9 C-scope: 11/27/18: Dr Friedman in 2011, get another referralC- scope: 03/25/2021 : Dr Mcallister, tubular adenoma Do yearly flu shots, declined 05/20/2022 UTD on Tdap 05/17/2009 Got PCV #23 03/14/2020 Get COVID 19 vaccine still does not want it, states that he has heard 'bad things about it', advised to follow all CDC guidelines Get RSV vaccine RTC in 4 monthdo labsER if worseHe did verbalize his understand ing of the above Coronary arteriosclerosis 89389666 I25.10 S/p stents in 201405/29/2019 : Dr Liang, f/u in 2 months 08/21/[address] chest for AAA at [facility] in [place] 06/23/2019 : Seen in ER [facility] for chest pain 02/12/2020 : [facility], s/p stenting of apical segment of LAD Synergy drug eluding stent, to be on dual antiplatel et therapyAdm itted for chest pain, was started on nitro drip and morphineDi d see Dr Emilee Sotomayor cardiologi st [facility] 03/13/2020 Not on ASAOn lasix 20mg dailyOn lisinopril 20mg dailyOn metoprolol ER 100mg daily, filled by Dr Sotomayor 05/20/2022 On NTG See his cardiologi st Dr Sotomayor last OV 09/16/2021 , next in 6 months Hyperlipidemia 48032043 E78.5 Not on atorvastat in 40mg dailyNow on vascepa but states that he is not taking this as it is $100 per month 09/22/2022 On rosuvastat in 40mg dailyOn zetia 10mg daily, his cardiologi st Dr Sotomayor wants him to get thisMore diet and exercise is neededGet labs Persistent insomnia 1919 16917 G47.09 On trazodoneD oes wellTake only as needed Multiple n odules of lung 650560009 R91.[address] Ramirez in the past, s/p CT chest 11/09/2018 , then was seen by Dr Cleary 11/15/2018 Dr Ramirez 08/17/2022 , f/u in 3 weeks S/p CT 07/19/2019 , near resolution of the nodulesS/P CT chest 12/19/2020 Dr Church last OV 07/09/2021 , next in 01/2022, is to get CT chestt 12/10/2021 Dr Church next apt 02/02/2023 , ordered CT chest 01/26/2023 , as per his requestPFT Dr Church 01/23/[address] Church 01/23/2022 Low back pain 669492034 M54.50 On opiates, filled by Pati ClaytonOn flexerillO n celebrex 200mg bid Off amitryptil ine See pain management S/p fall NS Dr Haji 07/21/2021 , states that he would like to get a referral to an 'ortho' spine surgeon, for a 2nd opinion, refer to Dr Duran IPC 07/02/2022 Benign pro static hyperplasia without outflow obstruction 559612135 N40.[address] Rust/p greenlight surgeryDr Strope 10/24/2021 urology, s/p MRI sacrum 10/20/2021 , states that he is doing well Smoker 37424158 F17.200 Advised to quit smoking! S/p CT chest on 12/19/2020 Chronic ob structive pulmonary disease 56863643 J44.9 [address] wellDr Church 02/02/2023 Vitamin D deficiency 347 14551 E55.9 Vit D weeklyGive n by Dr Villa IJ Chronic ki dney disease 759902763 N18.9 S/p US kidney 12/19/2020 Get an apt with Dr Villa IJ again Steatotic liver disease 414387793 K76.[address] Susan GABRIEL liver 01/01/2021 : Fatty liver Dr Victoriano Chase-Richar ha 12/25/2021 , f/u in one year, c-scope in 2025Dr Arsh 01/14/2022 Obstructiv e sleep apnea syndrome 80733541 G47.[address] Church, is on CPAPDr Lynnette 02/02/2023 apt Thrombocytosis 7439842 D 75.839 Repeat the CBCMay need to see hematology Pain of ri ght hip joint 6488952412 06119 M25.551 Scheduled for R EMILIA on 06/09/2022 , by Dr Troncoso He is cleared by Dr Sotomayor his cardiologi stAwaiting labs, EKG and Xray chest ordered by Dr TroncosoHe will be a moderate risk for the RTHA Screening for malignant neoplasm of prostate 249192543 Z12.5 Adult heal th examination 927247477 Z00.00 Screening for disorder 785009462 Z13.9 [id number] Sammi zhou MD [facility] [place] [address] [facility] [address] [place] [address] 09/14/2023 09:23:31 09/14/2023 10:21:15 Screening - NAD 012859131 Z13.9 C-scope: 11/27/18: Dr Friedman in 2011, get another referralC- scope: 03/25/2021 : Dr Mcallister, tubular adenoma Do yearly flu shots, declined 05/20/2022 UTD on Tdap 05/17/2009 Got PCV #23 03/14/2020 Get COVID 19 vaccine still does not want it, states that he has heard 'bad things about it', advised to follow all CDC guidelines Get RSV vaccine RTC in 4 monthdo labsER if worseHe did verbalize his understand ing of the above Type 2 nu betes mellitus without complication 410325461 E11.9 On metformin 1000mg bidGet labsOn ozempic, he does want to get on Mounjaro, will d/c the ozempic and get on Mounjaro, he will come for teaching of how to take thisSees Dr Jez Soto podiatry 02/17/2021 OV 10/13/2022 :Discussed use of Mounjaro and how to use the pen, no symptoms or MEN2 or pancreatit is, all side effects explained to him, advised to watch for LOW glucose symptoms, also can cut back the metformin to 1000mg dailyGet labs as scheduledK eep apt with 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 He does see the eye MD as per his history OV 01/26/2023 :On metformin ER 2 tabs bidOn MounjaroDo es wellGet labsDr Rainey 02/05/2023 OV 09/14/2023 :On metformin ER 2 tabs bidNow on ozempic filled by Holley Figueroa 09/07/2023 Does wellGet Matthew Arias eye 09/07/2023 Coronary arteriosclerosis 83928787 I25.10 S/p stents in 201405/29/2019 : Dr Liang, f/u in 2 months 08/21/[address] chest for AAA at [facility] in [place] 06/23/2019 : Seen in ER [facility] for chest pain 02/12/2020 : [facility], s/p stenting of apical segment of LAD Synergy drug eluding stent, to be on dual antiplatel et therapyAdm itted for chest pain, was started on nitro drip and morphineDi d see Dr Emilee Sotomayor cardiologi st [facility] 03/13/2020 Not on ASAOn lasix 20mg dailyOn lisinopril 20mg dailyOn metoprolol ER 100mg daily, filled by Dr Sotomayor 05/20/2022 On NTG See his cardiologi st Dr Sotomayor last OV 09/16/2021 , next in 6 monthsDr Sotomayor 03/10/2023 , f/u in one year Hyperlipidemia 77628434 E78.5 Not on atorvastat in 40mg dailyNow on vascepa but states that he is not taking this as it is $100 per month 09/22/2022 On rosuvastat in 40mg dailyOn zetia 10mg daily, his cardiologi st Dr Sotomayor wants him to get thisMore diet and exercise is neededGet labs Persistent insomnia 1919 21838 G47.09 On trazodoneD oes wellTake only as needed Multiple n odules of lung 598746376 R91.[address] Ramirez in the past, s/p CT chest 11/09/2018 , then was seen by Dr Cleary 11/15/2018 Dr Ramirez 08/17/2022 , f/u in 3 weeks S/p CT 07/19/2019 , near resolution of the nodulesS/P CT chest 12/19/2020 Dr Church last OV 07/09/2021 , next in 01/2022, is to get CT chestt 12/10/2021 Dr Church next apt 02/02/2023 , ordered CT chest 01/26/2023 , as per his requestPFT Dr Church 01/23/[address] Church 01/23/2022 CT Chest 02/24/2023 : Next in one year Low back pain 658791929 M54.50 On opiates, filled by Pati ClaytonOn flexerillO n celebrex 200mg bid Off amitryptil ine See pain management S/p fall NS Dr Haji 07/21/2021 , states that he would like to get a referral to an 'ortho' spine surgeon, for a 2nd opinion, refer to Dr Duran IPC 07/02/2022 Benign pro static hyperplasia without outflow obstruction 756031618 N40.[address] [facility] 10/24/2021 urology, s/p MRI sacrum 10/20/2021 , states that he is doing well Smoker 99422273 F17.200 Advised to quit smoking! S/p CT chest on 12/19/2020 Chronic ob structive pulmonary disease 12567547 J44.9 Does wellDr Church 02/02/2023 Vitamin D deficiency 347 56364 E55.9 Vit D weeklyGive n by Dr Allen BAKER Chronic ki dney disease 457181525 N18.9 S/p US kidney 12/19/2020 Get an apt with Dr Allen BAKER again Steatotic liver disease 334692202 K76.[address] Susan GABRIEL liver 01/01/2021 : Fatty liver Dr Victoriano Chase-Richar ha 12/25/2021 , f/u in one year, c-scope in 2025Dr Caban 01/14/2022 Dr Cbaan 01/14/2023 , f/u in one year Obstructiv e sleep apnea syndrome 29192546 G47.[address] Church, is on CPAPDr Church 02/02/2023 apt Thrombocytosis 1437718 D 75.839 Repeat the CBCMay need to see hematology Pain of ri ght hip joint 3868694089 58143 M25.551 Scheduled for R EMILIA on 06/09/2022 , by Dr Troncoso He is cleared by Dr Sotomayor his cardiologi stAwaiting labs, EKG and Xray chest ordered by Dr TroncosoHe will be a moderate risk for the RTHA Screening for malignant neoplasm of prostate 307835530 Z12.5 Skin lesion 45034536 L98 .9 Small raised rounded lesion noted on the L orthodox area, will refer to Dr Pro [id number] Chaz vega MD [facility] General Surgery [address] [address] 09/23/2023 11:23:39 09/23/2023 12:24:10 Skin lesion 98770610 L98.9 Left temporal [id number] Chaz vega MD [facility] General Surgery [address] [address] 09/28/2023 11:55:29 10/13/2023 16:15:14 Skin lesion 52433864 L98.9 Left temporal Excision today in the office; specimen sent to pathology. f/u in 7-10 days. [id number] Sammi zhou MD [facility] Internal Med Zachary samira [address] [place] [address] , [facility] [place] [address] 09/27/2023 14:49:50 09/27/2023 15:45:05 Screening - NAD 059855451 Z13.9 C-scope: 11/27/18: Dr Friedman in 2011, get another referralC- scope: 03/25/2021 : Dr Mcallister, tubular adenoma Do yearly flu shots, declined 05/20/2022 UTD on Tdap 05/17/2009 Got PCV #23 03/14/2020 Get COVID 19 vaccine still does not want it, states that he has heard 'bad things about it', advised to follow all CDC guidelines Get RSV vaccine RTC in 4 monthdo labsER if worseHe did verbalize his understand ing of the above Type 2 nu betes mellitus without complication 831361030 E11.9 On metformin 1000mg bidGet labsOn ozempic, he does want to get on Mounjaro, will d/c the ozempic and get on Mounjaro, he will come for teaching of how to take thisSees Dr Jez Soto podiatry 02/17/2021 OV 10/13/2022 :Discussed use of Mounjaro and how to use the pen, no symptoms or MEN2 or pancreatit is, all side effects explained to him, advised to watch for LOW glucose symptoms, also can cut back the metformin to 1000mg dailyGet labs as scheduledK eep apt with 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 He does see the eye MD as per his history OV 01/26/2023 :On metformin ER 2 tabs bidOn MounjaroDo es Liza Rainey 02/05/2023 OV 09/14/2023 :On metformin ER 2 tabs bidNow on ozempic filled by Holley Figueroa 09/07/2023 Does Liza Arias eye 09/07/2023 OV 09/27/2023 :On metforminO n ozempicGet labs Coronary arteriosclerosis 63577158 I25.10 S/p stents in 201405/29/2019 : Dr Liang, f/u in 2 months 08/21/[address] chest for AAA at [facility] in [place] 06/23/2019 : Seen in ER [facility] for chest pain 02/12/2020 : [facility], s/p stenting of apical segment of LAD Synergy drug eluding stent, to be on dual antiplatel et therapyAdm itted for chest pain, was started on nitro drip and morphineDi d see Dr Emilee Sotomayor cardiologi st [facility] 03/13/2020 Not on ASAOn lasix 20mg dailyOn lisinopril 20mg dailyOn metoprolol ER 100mg daily, filled by Dr Sotomayor 05/20/2022 On NTG See his cardiologi st Dr Sotomayor last OV 09/16/2021 , next in 6 monthsDr Sotomayor 03/10/2023 , f/u in one year Hyperlipidemia 61391414 E78.5 Not on atorvastat in 40mg dailyNow on vascepa but states that he is not taking this as it is $100 per month 09/22/2022 On rosuvastat in 40mg dailyOn zetia 10mg daily, his cardiologi st Dr Sotomayor wants him to get thisMore diet and exercise is neededGet labs Persistent insomnia 1919 94081 G47.09 On trazodoneD oes wellTake only as needed Multiple n odules of lung 578922758 R91.[address] Ramirez in the past, s/p CT chest 11/09/2018 , then was seen by Dr Cleary 11/15/2018 Dr Ramirez 08/17/2022 , f/u in 3 weeks S/p CT 07/19/2019 , near resolution of the nodulesS/P CT chest 12/19/2020 Dr Church last OV 07/09/2021 , next in 01/2022, is to get CT chestt 12/10/2021 Dr Church next apt 02/02/2023 , ordered CT chest 01/26/2023 , as per his requestPFT Dr Church 01/23/[address] Church 01/23/2022 CT Chest 02/24/2023 : Next in one year Low back pain 757997238 M54.50 On opiates, filled by Pati ClaytonOn flexerillO n celebrex 200mg bid Off amitryptil ine See pain management S/p fall NS Dr Haji 07/21/2021 , states that he would like to get a referral to an 'ortho' spine surgeon, for a 2nd opinion, refer to Dr Duran IPC 07/02/2022 Benign pro static hyperplasia without outflow obstruction 321446004 N40.[address] Rust/p greenlight surgeryDr Dylan 10/24/2021 urology, s/p MRI sacrum 10/20/2021 , states that he is doing well Smoker 78402281 F17.200 Advised to quit smoking! S/p CT chest on 12/19/2020 Chronic ob structive pulmonary disease 76545726 J44.9 Does wellDr Church 02/02/2023 Vitamin D deficiency 347 54551 E55.9 Vit D weeklyGive n by Dr Allen BAKER Chronic ki dney disease 945170680 N18.9 S/p US kidney 12/19/2020 Get an apt with Dr Allen BAKER again Steatotic liver disease 708901607 K76.[address] Susan GABRIEL liver 01/01/2021 : Fatty liver Dr Victoriano Chase-Richar ha 12/25/2021 , f/u in one year, c-scope in 2025Dr Arsh 01/14/2022 Dr Caban 01/14/2023 , f/u in one year Obstructiv e sleep apnea syndrome 94144435 G47.[address] Church, is on CPAPDr Lynnette 02/02/2023 apt Thrombocytosis 2044708 D 75.839 Repeat the CBCMay need to see hematology Pain of ri ght hip joint 9066635927 71125 M25.551 Scheduled for R EMILIA on 06/09/2022 , by Dr Troncoso He is cleared by Dr Sotomayor his cardiologi stAwaiting labs, EKG and Xray chest ordered by Dr TroncosoHe will be a moderate risk for the RTHA Skin lesion 63786589 L98 .9 Dr Pro 09/23/2023 , next apt 09/28/2023 Hearing loss 47697922 H9 1.91 Moderate amts of wax extracted with warm ater flush, he tolerated the procedure very well, will get on debrox as needed Disorder of prostate 302 77166 N42.9 High normal PSA, will refer to Dr Richardson [id number] Chaz vega MD [facility] [place] [address] [place] [address] 10/05/2023 10:21:06 10/13/2023 16:26:13 Squamous cell carcinoma of skin 517013169 C44.92 left temporal area [id number] Sammi zhou MD [facility] [place] Zachary samira [address] [place] [address] 10/12/2023 15:34:15 01/20/2024 11:51:00 Hypertriglyceridemia 627058540 E78.2 Steatotic liver disease 220593321 K76.0 Type 2 nu betes mellitus without complication 341331272 E11.9 Benign pro static hyperplasia with outflow obstruction 308658107 N40.1 [id number] Tarsha Drew MD [facility] Urology [address] [address] 10/15/2023 14:05:58 10/26/2023 09:11:30 Lower urinary tract symptoms due to benign prostatic hypertrophy 1205928163 9101 N40.1 [id number] Sammi zhou MD [facility] Internal Med [facility] [address] [address] 11/17/2023 17:02:39 02/02/2024 16:36:39 Benign prostatic hyperplasia with outflow obstruction 770841684 N40.1 Chronic ki dney disease 046441274 N18.9 Hyperlipidemia 32376186 E78.5 Essential hypertension 30104330 I10 [id number] Sammi zhou MD [facility] Internal Med [facility] [address] [address] 12/20/2023 16:19:00 02/03/2024 19:07:47 Lesion of skin of face 0090388068 06 L98.9 Essential hypertension 16000371 I10 [id number] Sammi zhou MD [facility] Internal Med [facility] [address] [address] 1 03/23/2024 09:23:58 03/23/2024 10:11:37 Screening - NAD 591446000 Z13.9 C-scope: 11/27/18: Dr Friedman in 2011, get another referralC- scope: 03/25/2021 : Dr Mcallister, tubular adenoma Do yearly flu shots, declined 05/20/2022 UTD on Tdap 05/17/2009 Got PCV #23 03/14/2020 Get COVID 19 vaccine still does not want it, states that he has heard 'bad things about it', advised to follow all CDC guidelines Get RSV vaccine RTC in 4 monthdo labsER if worseHe did verbalize his understand ing of the above Type 2 nu betes mellitus without complication 653194157 E11.9 On metformin 1000mg bidGet labsOn ozempic, he does want to get on Mounjaro, will d/c the ozempic and get on Mounjaro, he will come for teaching of how to take thisSees Dr Jez Soto podiatry 02/17/2021 OV 10/13/2022 :Discussed use of Mounjaro and how to use the pen, no symptoms or MEN2 or pancreatit is, all side effects explained to him, advised to watch for LOW glucose symptoms, also can cut back the metformin to 1000mg dailyGet labs as scheduledK eep apt with 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 He does see the eye MD as per his history OV 01/26/2023 :On metformin ER 2 tabs bidOn MounjaroDo es wellGet Matthew Rainey 02/05/2023 OV 09/14/2023 :On metformin ER 2 tabs bidNow on ozempic filled by Holley Figueroa 09/07/2023 Does Liza Arias eye 09/07/2023 OV 09/27/2023 :On metforminO n ozempicGet labs Coronary arteriosclerosis 49932035 I25.10 S/p stents in 201405/29/2019 : Dr Liang, f/u in 2 months 08/21/[address] chest for AAA at [facility] in [place] 06/23/2019 : Seen in ER [facility] for chest pain 02/12/2020 : [facility], s/p stenting of apical segment of LAD Synergy drug eluding stent, to be on dual antiplatel et therapyAdm itted for chest pain, was started on nitro drip and morphineDi d see Dr Emilee Sotomayor cardiologi st [facility] 03/13/2020 Not on ASAOn lasix 20mg dailyOn lisinopril 20mg dailyOn metoprolol ER 100mg daily, filled by Dr Sotomayor 05/20/2022 On NTG See his cardiologi st Dr Sotomayor last OV 09/16/2021 , next in 6 monthsDr Bridget 03/10/2023 , f/u in one yearDr Bridget 03/15/2024 , f/u in one year Hyperlipidemia 02839747 E78.5 Not on atorvastat in 40mg dailyNow on vascepa but states that he is not taking this as it is $100 per month 09/22/2022 On rosuvastat in 40mg dailyOn zetia 10mg daily, his cardiologi st Dr Sotomayor wants him to get thisMore diet and exercise is neededGet labs Persistent insomnia 1919 49587 G47.09 On trazodoneD oes wellTake only as needed Multiple n odules of lung 163767382 R91.[address] Ramirez in the past, s/p CT chest 11/09/2018 , then was seen by Dr Cleary 11/15/2018 Dr Ramirez 08/17/2022 , f/u in 3 weeks S/p CT 07/19/2019 , near resolution of the nodulesS/P CT chest 12/19/2020 Dr Church last OV 07/09/2021 , next in 01/2022, is to get CT chestt 12/10/2021 Dr Church next apt 02/02/2023 , ordered CT chest 01/26/2023 , as per his requestPFT Dr Church 01/23/[address] Church 01/23/2022 CT Chest 02/24/2023 : Next in one yearLDCT 03/13/2024 : Dr Kenya Baltazar Low back pain 508250726 M54.50 On opiates, filled by Pati ClaytonOn flexerillO n celebrex 200mg bid Off amitryptil ine See pain management S/p fall NS Dr Haji 07/21/2021 , states that he would like to get a referral to an 'ortho' spine surgeon, for a 2nd opinion, refer to Dr Duran IPC 07/02/2022 Benign pro static hyperplasia without outflow obstruction 670682688 N40.[address] Rust/p greenlight surgeryDr Strope 10/24/2021 urology, s/p MRI sacrum 10/20/2021 , states that he is doing well Smoker 84493659 F17.200 Advised to quit smoking! S/p CT chest on 12/19/2020 Chronic ob structive pulmonary disease 09354849 J44.9 [address] wellDr Church 02/02/2023 Vitamin D deficiency 347 88654 E55.9 Vit D weeklyGive n by Dr Allen BAKER Chronic ki dney disease 480692957 N18.9 S/p US kidney 12/19/2020 Get an apt with Dr Villa IJ again Steatotic liver disease 692464349 K76.[address] Susan GABRIEL liver 01/01/2021 : Fatty liver Dr Victoriano Chase-Richar ha 12/25/2021 , f/u in one year, c-scope in 2025Dr Arsh 01/14/2022 Dr Caban 01/14/2023 , f/u in one year Obstructiv e sleep apnea syndrome 71630169 G47.[address] Church, is on CPAPDr Lynnette 02/02/2023 apt Thrombocytosis 3567190 D 75.839 Repeat the CBCMay need to see hematology Pain of ri ght hip joint 4614154470 80270 M25.551 Scheduled for R EMILIA on 06/09/2022 , by Dr Troncoso He is cleared by Dr Sotomayor his cardiologi stAwaiting labs, EKG and Xray chest ordered by Dr TroncosoHe will be a moderate risk for the RTHA Skin lesion 71659138 L98 .9 Dr Pro 09/23/2023 , next apt 09/28/2023 Hearing loss 86545926 H9 1.91 Moderate amts of wax extracted with warm ater flush, he tolerated the procedure very well, will get on debrox as needed Disorder of prostate 302 87619 N42.9 High normal PSA, will refer to Dr Richardson [facility] th examination 829658390 Z00.00 Screening for disorder 134782633 Z13.9 [id number] Sammi zhou MD [facility] Internal Med [address] [facility], [address] [place] [address] 06/29/2024 09:27:43 06/29/2024 09:58:55 Screening - NAD 665490999 Z13.9 C-scope: 11/27/18: Dr Friedman in 2011, get another referralC- scope: 03/25/2021 : Dr Mcallister, tubular adenoma Do yearly flu shots, declined 05/20/2022 UTD on Tdap 05/17/2009 Got PCV #23 03/14/2020 Get COVID 19 vaccine still does not want it, states that he has heard 'bad things about it', advised to follow all CDC guidelines Get RSV vaccine RTC in 4 monthdo labsER if worseHe did verbalize his understand ing of the above Type 2 nu betes mellitus without complication 680285223 E11.9 On metformin 1000mg bidGet labsOn ozempic, he does want to get on Mounjaro, will d/c the ozempic and get on Mounjaro, he will come for teaching of how to take thisSees Dr Jez Soto podiatry 02/17/2021 OV 10/13/2022 :Discussed use of Mounjaro and how to use the pen, no symptoms or MEN2 or pancreatit is, all side effects explained to him, advised to watch for LOW glucose symptoms, also can cut back the metformin to 1000mg dailyGet labs as scheduledK eep apt with 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 He does see the eye MD as per his history OV 01/26/2023 :On metformin ER 2 tabs bidOn MounjaroDo es Liza Rainey 02/05/2023 OV 09/14/2023 :On metformin ER 2 tabs bidNow on ozempic filled by Holley Figueroa 09/07/2023 Does Liza Arias eye 09/07/2023 OV 09/27/2023 :On metforminO n ozempicGet labs OV 06/29/2024 :On metforminO n ozempicLis richard Figueroa STATION ATTENDANT 05/04/2024 , as per STATION ATTENDANT note cannot take higher Ozempic d/t cost Coronary arteriosclerosis 11832815 I25.10 S/p stents in 201405/29/2019 : Dr Liang, f/u in 2 months 08/21/[address] chest for AAA at [facility] in [place] 06/23/2019 : Seen in ER [facility] for chest pain 02/12/2020 : [facility], s/p stenting of apical segment of LAD Synergy drug eluding stent, to be on dual antiplatel et therapyAdm itted for chest pain, was started on nitro drip and morphineDi d see Dr Emilee Sotomayor cardiologi st [facility] 03/13/2020 Not on ASAOn lasix 20mg dailyOn lisinopril 20mg dailyOn metoprolol ER 100mg daily, filled by Dr Sotomayor 05/20/2022 On NTG See his cardiologi st Dr Sotomayor last OV 09/16/2021 , next in 6 monthsDr Bridget 03/10/2023 , f/u in one yearDr Bridget 03/15/2024 , f/u in one year Hyperlipidemia 58117701 E78.5 Not on atorvastat in 40mg dailyNow on vascepa but states that he is not taking this as it is $100 per month 09/22/2022 On rosuvastat in 40mg dailyOn zetia 10mg daily, his cardiologi st Dr Sotomayor wants him to get thisMore diet and exercise is needed OV 06/29/2024 :Seen by Holley Figueroa STATION ATTENDANT 05/04/2024 , was told to alternate rosuvastat in with atorvastat in and take zetia, could not tolerate Lipitor as per the STATION ATTENDANT note Persistent insomnia 1919 24788 G47.09 On trazodoneD oes wellTake only as needed Multiple n odules of lung 999089517 R91.[address] Ramirez in the past, s/p CT chest 11/09/2018 , then was seen by Dr Cleary 11/15/2018 Dr Ramirez 08/17/2022 , f/u in 3 weeks S/p CT 07/19/2019 , near resolution of the nodulesS/P CT chest 12/19/2020 Dr Church last OV 07/09/2021 , next in 01/2022, is to get CT chestt 12/10/2021 Dr Church next apt 02/02/2023 , ordered CT chest 01/26/2023 , as per his requestPFT Dr Church 01/23/[address] Church 01/23/2022 CT Chest 02/24/2023 : Next in one yearLDCT 03/13/2024 : Dr Kenya Baltazar Low back pain 182392886 M54.50 On opiates, filled by Pati ClaytonOn flexerillO n celebrex 200mg bid Off amitryptil ine See pain management S/p fall NS Dr Haji 07/21/2021 , states that he would like to get a referral to an 'ortho' spine surgeon, for a 2nd opinion, refer to Dr Duran IPC 06/20/2024 Benign pro static hyperplasia without outflow obstruction 235615491 N40.[address] Rust/addie greenlight surgeryDr Strope 10/24/2021 urology, s/p MRI sacrum 10/20/2021 , states that he is doing well Smoker 40439784 F17.200 Advised to quit smoking! S/p CT chest on 12/19/2020 Chronic ob structive pulmonary disease 20937818 J44.9 Does wellDr Lynnette 02/02/2023 Vitamin D deficiency 347 26673 E55.9 Vit D weeklyGive n by Dr Allen BAKER Chronic ki dney disease 562338069 N18.9 S/p US kidney 12/19/2020 Get an apt with Dr Allen BAKER again Steatotic liver disease 129870927 K76.[address] Susan GABRIEL liver 01/01/2021 : Fatty liver Dr Victoriano ha 12/25/2021 , f/u in one year, c-scope in 2025Dr Arsh 01/14/2022 Dr Caban 01/14/2023 , f/u in one year Obstructiv e sleep apnea syndrome 23532883 G47.[address] Church, is on CPAPDr Lynnette 02/02/2023 apt Thrombocytosis 4372575 D 75.839 Repeat the CBCMay need to see hematology Pain of ri ght hip joint 1444884277 39368 M25.551 Scheduled for R EMILIA on 06/09/2022 , by Dr Troncoso He is cleared by Dr Sotomayor his cardiologi stAwaiting labs, EKG and Xray chest ordered by Dr TroncosoHe will be a moderate risk for the RTHA OV 06/29/2024 : States that he is doing very well now Skin lesion 23451691 L98 .9 Dr Pro 10/05/2023 , f/u PRN Disorder of prostate 302 00814 N42.9 High normal PSADr Dorian 10/15/2023 Pain of ri ght shoulder joint 1519631082 0991137 M25.[address] Hutchison 06/16/2024 , and is to get MRI shoulder Decreased hearing 255873 001 H91.91 noted to have wax, will use debrox and RTC in 2 weeks [id number] Sammi zhou MD [facility] Internal Med [facility] [address] [facility] [address] [place] [address] 07/13/2024 08:55:37 07/13/2024 09:12:00 Tinnitus of right ear 7388875376 108 H93.11 EAC clear, mild redness to the TMWill start on augmentin and flonase and zyrtecNoti fy if not better, then will need to see ENT Disorder of prostate 302 34104 N42.9 High normal PSADr [facility] 10/15/2023 [id number] Sammi zhou MD [facility] [place] [facility] [address] [facility] [address] [place] [address] 08/29/2024 16:37:39 08/29/2024 17:28:59 Disorder of prostate 28950426 N42.9 High normal PSADr [facility] 10/15/2023 Screening - NAD 91746804 3 Z13.9 C-scope: 11/27/18: Dr Friedman in 2011, get another referralC- scope: 03/25/2021 : Dr Mcallister, tubular adenoma Do yearly flu shots, declined 05/20/2022 UTD on Tdap 05/17/2009 Got PCV #23 03/14/2020 Get COVID 19 vaccine still does not want it, states that he has heard 'bad things about it', advised to follow all CDC guidelines Get RSV vaccine RTC in 4 monthdo labsER if worseHe did verbalize his understand ing of the above Type 2 nu betes mellitus without complication 343025546 E11.9 On metformin 1000mg bidGet labsOn ozempic, he does want to get on Mounjaro, will d/c the ozempic and get on Mounjaro, he will come for teaching of how to take thisSees Dr Jez Soto podiatry 02/17/2021 OV 10/13/2022 :Discussed use of Mounjaro and how to use the pen, no symptoms or MEN2 or pancreatit is, all side effects explained to him, advised to watch for LOW glucose symptoms, also can cut back the metformin to 1000mg dailyGet labs as scheduledK eep apt with 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 He does see the eye MD as per his history OV 01/26/2023 :On metformin ER 2 tabs bidOn MounjaroDo es wellGet Matthew Rainey 02/05/2023 OV 09/14/2023 :On metformin ER 2 tabs bidNow on ozempic filled by Holley Figueroa 09/07/2023 Does Liza pacheco MD 09/07/2023 OV 09/27/2023 :On metforminO n ozempicGet labs OV 06/29/2024 :On metforminO n ozempicLis richard Figueroa NP 05/04/2024 , as per STATION ATTENDANT note cannot take higher Ozempic d/t cost OV 08/29/2024 :On metforminO n ozempic, renewedGet labs Coronary arteriosclerosis 38389065 I25.10 S/p stents in 201405/29/2019 : Dr Liang, f/u in 2 months 08/21/[address] chest for AAA at [facility] in [place] 06/23/2019 : Seen in ER [facility] for chest pain 02/12/2020 : [facility], s/p stenting of apical segment of LAD Synergy drug eluding stent, to be on dual antiplatel et therapyAdm itted for chest pain, was started on nitro drip and morphineDi d see Dr Emilee Sotomayor cardiologi st [facility] 03/13/2020 Not on ASAOn lasix 20mg dailyOn lisinopril 20mg dailyOn metoprolol ER 100mg daily, filled by Dr Sotomayor 05/20/2022 On NTG See his cardiologi st Dr Sotomayor last OV 09/16/2021 , next in 6 monthsDr Bridget 03/10/2023 , f/u in one yearDr Bridget 03/15/2024 , f/u in one year OV 08/29/2024 :[facility] 08/27/2024 Now has to see Dr Sotomayor for a CCAdvised to go to the ER by the hospital nurse, he will proceed to [facility] ER as he is still having chest pains and his cardiologi st is located there, he states that he will drive as he does not want to pay for ambulanceH e also declined an EKG as he has was d/c from hospital and states that they did these before he left Hyperlipidemia [id number] E78.5 Not on atorvastat in 40mg dailyNow on vascepa but states that he is not taking this as it is $100 per month 09/22/2022 On rosuvastat in 40mg dailyOn zetia 10mg daily, his cardiologi st Dr Sotomayor wants him to get thisMore diet and exercise is needed OV 06/29/2024 :Seen by Holley Figueroa STATION ATTENDANT 05/04/2024 , was told to alternate rosuvastat in with atorvastat in and take zetia, could not tolerate Lipitor as per the STATION ATTENDANT note O V0 5:On zetiaGet labs Persistent insomnia 1919 93700 G47.09 On trazodoneD oes wellTake only as needed Multiple n odules of lung 175332523 R91.[address] Ramirez in the past, s/p CT chest 11/09/2018 , then was seen by Dr Cleary 11/15/2018 Dr Ramirez 08/17/2022 , f/u in 3 weeks S/p CT 07/19/2019 , near resolution of the nodulesS/P CT chest 12/19/2020 Dr Church last OV 07/09/2021 , next in 01/2022, is to get CT chestt 12/10/2021 Dr Church next apt 02/02/2023 , ordered CT chest 01/26/2023 , as per his requestPFT Dr Church 01/23/[address] Church 01/23/2022 CT Chest 02/24/2023 : Next in one yearLDCT 03/13/2024 : Dr Kenya Baltazar Low back pain 485124741 M54.50 On opiates, filled by Pati ClaytonOn flexerillO n celebrex 200mg bid Off amitryptil ine See pain management S/p fall NS Dr Haji 07/21/2021 , states that he would like to get a referral to an 'ortho' spine surgeon, for a 2nd opinion, refer to Dr Duran IPC 06/20/2024 Benign pro static hyperplasia without outflow obstruction [id number] N40.[address] Rust/p greenlight surgeryDr Strope 10/24/2021 urology, s/p MRI sacrum 10/20/2021 , states that he is doing well Smoker 75781908 F17.200 Advised to quit smoking! S/p CT chest on 12/19/2020 Chronic ob structive pulmonary disease 57993118 J44.9 [address] wellDr Church 02/02/2023 Vitamin D deficiency 347 10021 E55.9 Vit D weeklyGive n by Dr Allen BAKER Chronic ki dney disease 791223924 N18.9 S/p US kidney 12/19/2020 Get an apt with Dr Allen BAKER again Steatotic liver disease 871703251 K76.[address] Susan GABRIEL liver 01/01/2021 : Fatty liver Dr Victoriano Chase-Richar ha 12/25/2021 , f/u in one year, c-scope in 2025Dr Arsh 01/14/2022 Dr Caban 01/14/2023 , f/u in one year Obstructiv e sleep apnea syndrome 76141133 G47.[address] Church, is on CPAPDr Lynnette 02/02/2023 apt Thrombocytosis 3329201 D 75.839 Repeat the CBCMay need to see hematology Pain of ri ght hip joint 4157107084 51365 M25.551 Scheduled for R EMILIA on 06/09/2022 , by Dr Troncoso He is cleared by Dr Sotomayor his cardiologi stAwaiting labs, EKG and Xray chest ordered by Dr TroncosoHe will be a moderate risk for the RTHA OV 06/29/2024 : States that he is doing very well now Skin lesion 24229430 L98 .9 Dr Pro 10/05/2023 , f/u PRN Pain of ri ght shoulder joint 6243323939 4117499 M25.[address] Hutchison 06/16/2024 As per his history s/p MRI in 05/2024, s/p epidural shot and the shoulder pain is much better Decreased hearing 606910 001 H91.91 noted to have wax, will use debrox and RTC in 2 weeks [id number] Sammi zhou MD [facility] [address] [facility] [address] [place] [address] 09/13/2024 16:09:21 09/13/2024 17:32:04 Disorder of prostate 25806925 N42.9 High normal PSADr Dorian 10/15/2023 OV 09/13/2024 : Get labs and does not want to see urology Screening - NAD [id number] 3 Z13.9 C-scope: 11/27/18: Dr Friedman in 2011, get another referralC- scope: 03/25/2021 : Dr Mcallister, tubular adenoma Do yearly flu shots, declined 05/20/2022 UTD on Tdap 05/17/2009 Got PCV #23 03/14/2020 Get COVID 19 vaccine still does not want it, states that he has heard 'bad things about it', advised to follow all CDC guidelines Get RSV vaccine RTC in 4 monthdo labsER if worseHe did verbalize his understand ing of the above Type 2 nu betes mellitus without complication 303789647 E11.9 On metformin 1000mg bidGet labsOn ozempic, he does want to get on Mounjaro, will d/c the ozempic and get on Mounjaro, he will come for teaching of how to take thisSees Dr Jez Soto podiatry 02/17/2021 OV 10/13/2022 :Discussed use of Mounjaro and how to use the pen, no symptoms or MEN2 or pancreatit is, all side effects explained to him, advised to watch for LOW glucose symptoms, also can cut back the metformin to 1000mg dailyGet labs as scheduledK eep apt with 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 He does see the eye MD as per his history OV 01/26/2023 :On metformin ER 2 tabs bidOn MounjaroDo es Liza Rainey 02/05/2023 OV 09/14/2023 :On metformin ER 2 tabs bidNow on ozempic filled by Holley Figueroa 09/07/2023 Does Liza Arias eye 09/07/2023 OV 09/27/2023 :On metforminO n ozempicGet labs OV 06/29/2024 :On metforminO n ozempicLis richard Figueroa STATION ATTENDANT 05/04/2024 , as per STATION ATTENDANT note cannot take higher Ozempic d/t cost OV 08/29/2024 :On metforminO n ozempic, renewedGet labs OV 09/13/2024 :On metforminO n ozempicDoe s well Coronary arteriosclerosis 16988848 I25.10 S/p stents in 201405/29/2019 : Dr Liang, f/u in 2 months 08/21/[address] chest for AAA at [facility] imaging in [place] 06/23/2019 : Seen in ER [facility] for chest pain 02/12/2020 : [facility], s/p stenting of apical segment of LAD Synergy drug eluding stent, to be on dual antiplatel et therapyAdm itted for chest pain, was started on nitro drip and morphineDi d see Dr Emilee Sotomayor cardiologi st [facility] 03/13/2020 Not on ASAOn lasix 20mg dailyOn lisinopril 20mg dailyOn metoprolol ER 100mg daily, filled by Dr Sotomayor 05/20/2022 On NTG See his cardiologi st Dr Sotomayor last OV 09/16/2021 , next in 6 monthsDr Bridget 03/10/2023 , f/u in one yearDr Bridget 03/15/2024 , f/u in one year OV 08/29/2024 :[facility] 08/27/2024 Now has to see Dr Sotomayor for a CCAdvised to go to the ER by the hospital nurse, he will proceed to [facility] ER as he is still having chest pains and his cardiologi st is located there, he states that he will drive as he does not want to pay for ambulanceH e also declined an EKG as he has was d/c from hospital and states that they did these before he left OV 09/13/2024 :S/p hospital visitNow does wellS/p CCOn amlodipine 2.5mg dailyOn isosorbide 30mg dailyNeeds to see Dr Sotomayor Hyperlipidemia 97390554 E78.5 Not on atorvastat in 40mg dailyNow on vascepa but states that he is not taking this as it is $100 per month 09/22/2022 On rosuvastat in 40mg dailyOn zetia 10mg daily, his cardiologi st Dr Sotomayor wants him to get thisMore diet and exercise is needed OV 06/29/2024 :Seen by Holley Figueroa NP 05/04/2024 , was told to alternate rosuvastat in with atorvastat in and take zetia, could not tolerate Lipitor as per the STATION ATTENDANT note O V0 5:On zetiaGet labs OV 09/13/2024 :On atorvastat in 40mg dailyGet labs Persistent insomnia 1919 04219 G47.09 On trazodoneD oes wellTake only as needed Multiple n odules of lung 886352578 R91.[address] Ramirez in the past, s/p CT chest 11/09/2018 , then was seen by Dr Cleary 11/15/2018 Dr Ramirez 08/17/2022 , f/u in 3 weeks S/p CT 07/19/2019 , near resolution of the nodulesS/P CT chest 12/19/2020 Dr Church last OV 07/09/2021 , next in 01/2022, is to get CT chestt 12/10/2021 Dr Church next apt 02/02/2023 , ordered CT chest 01/26/2023 , as per his requestPFT Dr Church 01/23/[address] Church 01/23/2022 CT Chest 02/24/2023 : Next in one yearLDCT 03/13/2024 : Dr Kenya Baltazar Low back pain 112101654 M54.50 On opiates, filled by Pati ClaytonOn flexerillO n celebrex 200mg bid Off amitryptil ine See pain management S/p fall NS Dr Haji 07/21/2021 , states that he would like to get a referral to an 'ortho' spine surgeon, for a 2nd opinion, refer to Dr Duran IPC 06/20/2024 Benign pro static hyperplasia without outflow obstruction 280297638 N40.[address] Rust/p greenlight surgeryDr Strope 10/24/2021 urology, s/p MRI sacrum 10/20/2021 , states that he is doing well Smoker 07671042 F17.200 Advised to quit smoking! S/p CT chest on 12/19/2020 Chronic ob structive pulmonary disease 92542878 J44.9 [address] wellDr Church 02/02/2023 Vitamin D deficiency 347 54073 E55.9 Vit D weeklyGive n by Dr Allen BAKER Chronic ki dney disease 376987884 N18.9 S/p US kidney 12/19/2020 Get an apt with Dr Villa IJ again Steatotic liver disease 618783534 K76.[address] Susan GABRIEL liver 01/01/2021 : Fatty liver Dr Victoriano ha 12/25/2021 , f/u in one year, c-scope in 2025Dr Arsh 01/14/2022 Dr Caban 01/14/2023 , f/u in one year Obstructiv e sleep apnea syndrome 54382880 G47.[address] Church, is on CPAPDr Lynnette 02/02/2023 apt Thrombocytosis 8288096 D 75.839 Repeat the CBCMay need to see hematology Pain of ri ght hip joint 3706875447 45560 M25.551 Scheduled for R EMILIA on 06/09/2022 , by Dr Troncoso He is cleared by Dr Sotomayor his cardiologi stAwaiting labs, EKG and Xray chest ordered by Dr TroncosoHe will be a moderate risk for the RTHA OV 06/29/2024 : States that he is doing very well now Skin lesion 90477926 L98 .9 Dr Pro 10/05/2023 , f/u PRN Pain of ri ght shoulder joint 4107496474 2084914 M25.[address] Hutchison 06/16/2024 As per his history s/p MRI in 05/2024, s/p epidural shot and the shoulder pain is much better Decreased hearing 343932 001 H91.91 noted to have wax, will use debrox and RTC in 2 weeks [id number] Sammi zhuo MD [facility] [address] [facility], [address] [place] [address] 01/02/2025 10:14:28 01/02/2025 10:40:20 Disorder of prostate 25181830 N42.9 High normal PSADr Dorian 10/15/2023 OV 09/13/2024 : Get labs and does not want to see urology OV 01/02/2025 : Reviewed, still does not want to see urology Screening - NAD 31111019 3 Z13.9 C-scope: 11/27/18: Dr Friedman in 2011, get another referralC- scope: 03/25/2021 : Dr Mcallister, tubular adenoma Do yearly flu shots, declined 05/20/2022 UTD on Tdap 05/17/2009 Got PCV #23 03/14/2020 Get COVID 19 vaccine still does not want it, states that he has heard 'bad things about it', advised to follow all CDC guidelines Get RSV vaccine RTC in 2 monthsdo labsER if worseHe did verbalize his understand ing of the above Type 2 nu betes mellitus without complication 335802914 E11.9 On metformin 1000mg bidGet labsOn ozempic, he does want to get on Mounjaro, will d/c the ozempic and get on Mounjaro, he will come for teaching of how to take thisSees Dr Jez Soto podiatry 02/17/2021 OV 10/13/2022 :Discussed use of Mounjaro and how to use the pen, no symptoms or MEN2 or pancreatit is, all side effects explained to him, advised to watch for LOW glucose symptoms, also can cut back the metformin to 1000mg dailyGet labs as scheduledK eep apt with 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 He does see the eye MD as per his history OV 01/26/2023 :On metformin ER 2 tabs bidOn BaldevroDo es Liza Rainey 02/05/2023 OV 09/14/2023 :On metformin ER 2 tabs bidNow on ozempic filled by Holley Figueroa 09/07/2023 Does Liza Arias eye 09/07/2023 OV 09/27/2023 :On metforminO n ozempicGet labs OV 06/29/2024 :On metforminO n ozempThiago Figueroa STATION ATTENDANT 05/04/2024 , as per STATION ATTENDANT note cannot take higher Ozempic d/t cost OV 08/29/2024 :On metforminO n ozempic, renewedGet labs OV 09/13/2024 :On metforminO n ozempicDoe s well Coronary arteriosclerosis 78356787 I25.10 S/p stents in 201405/29/2019 : Dr Liang, f/u in 2 months 08/21/[address] chest for AAA at [facility] in [place] 06/23/2019 : Seen in ER [facility] for chest pain 02/12/2020 : [facility], s/p stenting of apical segment of LAD Synergy drug eluding stent, to be on dual antiplatel et therapyAdm itted for chest pain, was started on nitro drip and morphineDi d see Dr Emilee Sotomayor cardiologi st [facility] 03/13/2020 Not on ASAOn lasix 20mg dailyOn lisinopril 20mg dailyOn metoprolol ER 100mg daily, filled by Dr Sotomayor 05/20/2022 On NTG See his cardiologi st Dr Sotomayor last OV 09/16/2021 , next in 6 monthsDr Bridget 03/10/2023 , f/u in one yearDr Bridget 03/15/2024 , f/u in one year OV 08/29/2024 :[facility] 08/27/2024 Now has to see Dr Sotomayor for a CCAdvised to go to the ER by the hospital nurse, he will proceed to [facility] ER as he is still having chest pains and his cardiologi st is located there, he states that he will drive as he does not want to pay for ambulanceH e also declined an EKG as he has was d/c from hospital and states that they did these before he left OV 09/13/2024 :S/p hospital visitNow does wellS/p CCOn amlodipine 2.5mg dailyOn isosorbide 30mg dailyNeeds to see Dr Sotomayor OV 01/02/2025 :Dr Sotomayor 10/11/2024 Hyperlipidemia 94867975 E78.5 Not on atorvastat in 40mg dailyNow on vascepa but states that he is not taking this as it is $100 per month 09/22/2022 On rosuvastat in 40mg dailyOn zetia 10mg daily, his cardiologi st Dr Sotomayor wants him to get thisMore diet and exercise is needed OV 06/29/2024 :Seen by Holley Figueroa STATION ATTENDANT 05/04/2024 , was told to alternate rosuvastat in with atorvastat in and take zetia, could not tolerate Lipitor as per the STATION ATTENDANT note O V0 5:On zetiaGet labs OV 09/13/2024 :On atorvastat in 40mg dailyGet labs OV 01/02/2025 :As per Dr Gondi should be on vascepa 1gm 2 caps bid Persistent insomnia 1919 33757 G47.09 On trazodoneD oes wellTake only as needed Multiple n odules of lung 214216008 R91.[address] Ramirez in the past, s/p CT chest 11/09/2018 , then was seen by Dr Cleary 11/15/2018 Dr Ramirez 08/17/2022 , f/u in 3 weeks S/p CT 07/19/2019 , near resolution of the nodulesS/P CT chest 12/19/2020 Dr Church last OV 07/09/2021 , next in 01/2022, is to get CT chestt 12/10/2021 Dr Church next apt 02/02/2023 , ordered CT chest 01/26/2023 , as per his requestPFT Dr Church 01/23/[address] Church 01/23/2022 CT Chest 02/24/2023 : Next in one yearLDCT 03/13/2024 : Dr Kenya Baltazar Referred 01/02/2025 Low back pain 498245188 M54.50 On opiates, filled by Pati HuntOn flexerillO n celebrex 200mg bid Off amitryptil ine See pain management S/p fall NS Dr Haji 07/21/2021 , states that he would like to get a referral to an 'ortho' spine surgeon, for a 2nd opinion, refer to Dr Duran IPC 06/20/2024 IPC 12/18/2024 : Pati Hunt Benign pro static hyperplasia without outflow obstruction 373346944 N40.[address] Rust/p greenlight surgeryDr Dylan 10/24/2021 urology, s/p MRI sacrum 10/20/2021 , states that he is doing well Smoker 19056526 F17.200 Advised to quit smoking! S/p CT chest on 12/19/2020 Chronic ob structive pulmonary disease 93753908 J44.9 [address] wellDr Church 02/02/2023 Vitamin D deficiency 347 25092 E55.9 Vit D weeklyGive n by Dr Allen BAKER Chronic ki dney disease 540646664 N18.9 S/p US kidney 12/19/2020 Get an apt with Dr Allen BAKER again Steatotic liver disease 198943097 K76.[address] Susan GABRIEL liver 01/01/2021 : Fatty liver Dr Victoriano ha 12/25/2021 , f/u in one year, c-scope in 2025Dr Arsh 01/14/2022 Dr Caban 01/14/2023 , f/u in one year Obstructiv e sleep apnea syndrome 93510937 G47.[address] Church, is on CPAPDr Lynnette 02/02/2023 apt Thrombocytosis 0197171 D 75.839 Repeat the CBCMay need to see hematology Pain of ri ght hip joint 5243093702 69672 M25.551 Scheduled for R EMILIA on 06/09/2022 , by Dr Troncoso He is cleared by Dr Sotomayor his cardiologi stAwaiting labs, EKG and Xray chest ordered by Dr TroncosoHe will be a moderate risk for the RTHA OV 06/29/2024 : States that he is doing very well now Skin lesion 62086025 L98 .9 Dr Pro 10/05/2023 , f/u PRN Pain of ri ght shoulder joint 0754664234 0559920 M25.[address] Hutchison 06/16/2024 As per his history s/p MRI in 05/2024, s/p epidural shot and the shoulder pain is much better Decreased hearing 703500 001 H91.91 noted to have wax, will use debrox and RTC in 2 weeks OV 01/02/2025 : R ear flushed flaky was extractedT he TM is opaque and the EAC is mildly redGet on debrox OTC and augmentinN otify if not better then may need to see ENT [id number] Sammi zhou MD [facility] [address] [facility] [address] [place] [address] 02/07/2025 09:31:03 02/07/2025 10:00:09 Disorder of prostate 27086414 N42.9 High normal PSADr Dorian 10/15/2023 OV 09/13/2024 : Get labs and does not want to see urology OV 01/02/2025 : Reviewed, still does not want to see urology Screening - NAD [id number] 3 Z13.9 C-scope: 11/27/18: Dr Friedman in 2011, get another referralC- scope: 03/25/2021 : Dr Mcallister, tubular adenoma Do yearly flu shots, declined 05/20/2022 UTD on Tdap 05/17/2009 Got PCV #23 03/14/2020 Get COVID 19 vaccine still does not want it, states that he has heard 'bad things about it', advised to follow all CDC guidelines Get RSV vaccine RTC in 2 monthsdo labsER if worseHe did verbalize his understand ing of the above Type 2 nu betes mellitus without complication 944110353 E11.9 On metformin 1000mg bidGet labsOn ozempic, he does want to get on Mounjaro, will d/c the ozempic and get on Mounjaro, he will come for teaching of how to take thisSees Dr Jez Soto podiatry 02/17/2021 OV 10/13/2022 :Discussed use of Mounjaro and how to use the pen, no symptoms or MEN2 or pancreatit is, all side effects explained to him, advised to watch for LOW glucose symptoms, also can cut back the metformin to 1000mg dailyGet labs as scheduledK eep apt with 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 He does see the eye MD as per his history OV 01/26/2023 :On metformin ER 2 tabs bidOn MounjaroDo es Liza Rainey 02/05/2023 OV 09/14/2023 :On metformin ER 2 tabs bidNow on ozempic filled by Holley Figueroa 09/07/2023 Does Liza Arias eye 09/07/2023 OV 09/27/2023 :On metforminO n ozempicGet labs OV 06/29/2024 :On metforminO n ozempicLis richard Figueroa STATION ATTENDANT 05/04/2024 , as per STATION ATTENDANT note cannot take higher Ozempic d/t cost OV 08/29/2024 :On metforminO n ozempic, renewedGet labs OV 09/13/2024 :On metforminO n ozempicDoe s well Coronary arteriosclerosis 47372491 I25.10 S/p stents in 201405/29/2019 : Dr Liang, f/u in 2 months 08/21/[address] chest for AAA at [facility] in [place] 06/23/2019 : Seen in ER [facility] for chest pain 02/12/2020 : [facility], s/p stenting of apical segment of LAD Synergy drug eluding stent, to be on dual antiplatel et therapyAdm itted for chest pain, was started on nitro drip and morphineDi d see Dr Emilee Sotomayor cardiologi st [facility] 03/13/2020 Not on ASAOn lasix 20mg dailyOn lisinopril 20mg dailyOn metoprolol ER 100mg daily, filled by Dr Sotomayor 05/20/2022 On NTG See his cardiologi st Dr Sotomayor last OV 09/16/2021 , next in 6 monthsDr Bridget 03/10/2023 , f/u in one yearDr Bridget 03/15/2024 , f/u in one year OV 08/29/2024 :[facility] 08/27/2024 Now has to see Dr Sotomayor for a CCAdvised to go to the ER by the hospital nurse, he will proceed to [facility] ER as he is still having chest pains and his cardiologi st is located there, he states that he will drive as he does not want to pay for ambulanceH e also declined an EKG as he has was d/c from hospital and states that they did these before he left OV 09/13/2024 :S/p hospital visitNow does wellS/p CCOn amlodipine 2.5mg dailyOn isosorbide 30mg dailyNeeds to see Dr Sotomayor OV 01/02/2025 :Dr Sotomayor 10/11/2024 Hyperlipidemia 64290835 E78.5 Not on atorvastat in 40mg dailyNow on vascepa but states that he is not taking this as it is $100 per month 09/22/2022 On rosuvastat in 40mg dailyOn zetia 10mg daily, his cardiologi st Dr Sotomayor wants him to get thisMore diet and exercise is needed OV 06/29/2024 :Seen by Holley Figueroa STATION ATTENDANT 05/04/2024 , was told to alternate rosuvastat in with atorvastat in and take zetia, could not tolerate Lipitor as per the STATION ATTENDANT note O V0 5:On zetiaGet labs OV 09/13/2024 :On atorvastat in 40mg dailyGet labs OV 01/02/2025 :As per Dr Sotomayor should be on vascepa 1gm 2 caps bid Persistent insomnia 1919 10723 G47.09 On trazodoneD oes wellTake only as needed Multiple n odules of lung 239049961 R91.[address] Ramirez in the past, s/p CT chest 11/09/2018 , then was seen by Dr Cleary 11/15/2018 Dr Ramirez 08/17/2022 , f/u in 3 weeks S/p CT 07/19/2019 , near resolution of the nodulesS/P CT chest 12/19/2020 Dr Church last OV 07/09/2021 , next in 01/2022, is to get CT chestt 12/10/2021 Dr Church next apt 02/02/2023 , ordered CT chest 01/26/2023 , as per his requestPFT Dr Church 01/23/[address] Church 01/23/2022 CT Chest 02/24/2023 : Next in one yearLDCT 03/13/2024 : Dr Kenya Baltazar Referred 01/02/2025 Low back pain 934946097 M54.50 On opiates, filled by Pati HuntOn flexerillO n celebrex 200mg bid Off amitryptil ine See pain management S/p fall NS Dr Haji 07/21/2021 , states that he would like to get a referral to an 'ortho' spine surgeon, for a 2nd opinion, refer to Dr Duran IPC 06/20/2024 IPC 12/18/2024 : Pati Hunt Benign pro static hyperplasia without outflow obstruction 921603969 N40.[address] Rust/p greenlight surgeryDr Strope 10/24/2021 urology, s/p MRI sacrum 10/20/2021 , states that he is doing well Smoker 90809154 F17.200 Advised to quit smoking! S/p CT chest on 12/19/2020 Chronic ob structive pulmonary disease 94101582 J44.9 Does wellDr Church 02/02/2023 Vitamin D deficiency 347 81968 E55.9 Vit D weeklyGive n by Dr Villa IJ Chronic ki dney disease 424821954 N18.9 S/p US kidney 12/19/2020 Get an apt with Dr Villa IJ again Steatotic liver disease 662740366 K76.[address] Susan GABRIEL liver 01/01/2021 : Fatty liver Dr Victoriano Chase-Richar ha 12/25/2021 , f/u in one year, c-scope in 2025Dr Arsh 01/14/2022 Dr Caban 01/14/2023 , f/u in one year Obstructiv e sleep apnea syndrome 68999931 G47.[address] Church, is on CPAPDr Lynnette 02/02/2023 apt Thrombocytosis 1276987 D 75.839 Repeat the CBCMay need to see hematology Pain of ri ght hip joint 6890416795 37870 M25.551 Scheduled for R EMILIA on 06/09/2022 , by Dr Troncoso He is cleared by Dr Sotomayor his cardiologi stAwaiting labs, EKG and Xray chest ordered by Dr TroncosoHe will be a moderate risk for the RTHA OV 06/29/2024 : States that he is doing very well now Skin lesion 13293236 L98 .9 Dr Pro 10/05/2023 , f/u PRN Pain of ri ght shoulder joint 7489251288 8325178 M25.[address] Hutchison 06/16/2024 As per his history s/p MRI in 05/2024, s/p epidural shot and the shoulder pain is much better Decreased hearing 847122 001 H91.91 noted to have wax, will use debrox and RTC in 2 weeks OV 01/02/2025 : R ear flushed flaky was extractedT he TM is opaque and the EAC is mildly redGet on debrox OTC and augmentinN otify if not better then may need to see ENT OV 02/07/2025 :Antony ears flushed with warm water, moderate wax extractedH e tolerated the procedure well Pain in le ft lower limb 420013444 M79.605 737935 On opiates, filled by Pati ClaytonOn flexerillO n celebrex 200mg bid Off amitryptil ine See pain management S/p fall NS Dr Haji 07/21/2021 , states that he would like to get a referral to an 'ortho' spine surgeon, for a 2nd opinion, refer to Dr Duran IPC 06/20/2024 IPC 12/18/2024 : Pati Hunt OV 02/07/2025 :Now has pain in the L mid lateral lower legGet US LE and also see pain management Addendum: 02/07/2025 :US LLE: NegPatient notifiedWi ll refer to ortho [id number] Chaim Pond MD [facility] [address] [place] [address] 02/12/2025 09:16:55 02/12/2025 10:04:24 Pain of left calf [id number] M79.662 [id number] Chaim Pond MD [facility] [address] [place] [address] 03/13/2025 11:05:41 03/13/2025 11:42:18 Pain of left calf [id number] M79.662 [id number] Strain of calf muscle 28 [id number] Goals Section Goal Description Progress Status Start Date LastModified by Organization Details LastModified Time Blood Glucose Maintains blood glucose within target range. pt educatd on frequently monitoring BS as he currently only checks every few days. Christopher active 2023 Shira You CCM Information not available 08/24/2023 17:56:19 Exercise Regularl y Follows a regular exercise regimen or instructed exercise plan as per care team recommendation (s) Christopher active 2023 Shira You CCM Information not available 08/24/2023 17:20:30 Diet Adherenc e Follows prescribed or recommended diet NoCantoni active 2023 Shira You CCM Information not available 08/24/2023 17:20:30 Weight Loss Decreases body weight as per care team recommendation (s) Christopher active 2023 Shira You CCM Information not available 08/24/2023 17:20:30 Hemoglob in A1C Lowers or maintains hemoglobin A1C (HbA1c) as per care team recommendation (s) [TARGET: less than or equal to 7%] Christopher active 2023 Shira You, CCM Information not available 08/24/2023 17:20:30 Medicati on Regimen Follows medication regimen as per care team recommendation (s) Progressing active 2023 Trang Ch CCM Information not available 11/17/2023 21:11:59 Smoking Cessatio n Quits smoking NoChange active 2023 Shira You CCM Information not available 10/15/2023 18:46:44 Decrease d Alcohol Consumpt ion Reports decreased alcohol consumption as per care team recommendation (s) NoChange active 2023 Shira You CCM Information not available 10/15/2023 18:46:44 Fall Safety Reports no recent falls and/or fall injuries Progressing active 2023 Trang Ch CCM Information not available 11/17/2023 21:12:03 Lab Testing Completes lab testing as per care team recommendation (s) NoChange active 2023 Shira You CCM Information not available 10/15/2023 18:46:44 Diagnost ic Testing Completes diagnostic testing as per care team recommendation (s) [facility] Information not available 10/15/2023 18:46:44 Financia l Stabilit y Reports financial status and/or income meets needs NoC active 2023 Shira You CCM Information not available 10/15/2023 18:46:44 Activiti es of Daily Living Performs activities of daily living independently or with minimal assistance [facility] active 2023 Shira You CCM Information not available 10/15/2023 18:46:44 Blood Pressure Maintains blood pressure goal as defined by care team improving active 2023 Trang Ch CCM Information not available 12/20/2023 20:35:02 Fluid Balance Manageme nt Exhibits no signs or symptoms related to fluid imbalance NoChange active 2023 Shira You CCM Information not available 10/15/2023 18:46:44 Follow-u p Appointm ent(s) Attends referral and/or follow-up appointment(s) as per care team recommendation (s) Progressing active 2023 Trang Ch CCM Information not available 11/17/2023 21:12:08 Effectiv e Coping Manages life events with effective coping methods [facility] active 2023 Shira You [facility] Information not available 10/15/2023 18:46:44 Exercise Regularl y Follows a regular exercise regimen or instructed exercise plan as per care team recommendation (s) [facility] active 2023 Shira You CCM Information not available 10/15/2023 18:46:44 Chronic Disease Symptom Manageme nt Reports no new or worsening symptoms [facility] active 2023 Shira You CCM Information not available 10/15/2023 18:46:44 Diet Adherenc e Follows prescribed or recommended diet [facility] active 2023 Shira You [facility] Information not available 10/15/2023 18:46:44 Food Security Reports ability to access and obtain foods to meet nutritional needs [facility] active 2023 Shira You CCM Information not available 10/15/2023 18:46:44 Blood Glucose Maintains blood glucose within target range [facility] active 2023 Shira You CCM Information not available 10/15/2023 18:46:44 Vaccinat ion Status Remains up to date on vaccines as per care team recommendation (s) [facility] active 2023 Shira You CCM Information not available 10/15/2023 18:46:44 Knowledg e of Disease or Conditio n Demonstrates understanding of disease(s) or condition(s) [facility] active 2023 Shira Davieschris [facility] Information not available 10/15/2023 18:46:44 Health Concerns Section Related Observation LastModified by Organization Detai ls LastModified Time Chronic sick Not Available Not Available Not Available Concern Status LastModified by Organization Details LastModified Time type 2 diabetes mellitus Active Shira You CCM Not Available 08/24/2023 17:53:58 chest pain Active Shira You, CCM Not Available 01/2024 17:54:54 Hypertriglyceridemia Active Shira You CCM Not Judy ilable 10/12/2023 19:30:18 Steatosis of liver Active Shira You CCM Not Avail able 10/12/2023 19:30:28 Chronic kidney disease Active Shira Avelino, CCM Not A vailable 10/15/2023 18:46:27 Benign prostatic hyperplasia with outflow obstruction Active Trang Ch [facility] Not Available 11/17/2023 21:11:50 Advance Directives Directive Y: Payers Insurance Date Sequence Insurance Name Policy Number Policy Mccallum Covered Member ID Mccallum Member ID Guarantor Name 03/13/2025 1 [facility] (MEDICARE REPLACEMENT/A DVANTAGE - PPO) [id number] Vivek Sanon [id number] Vivek Sanon Notes Date Note Type Note Provider Name and Address Organization Details Recorded Time 09/13/2024 text/html 06/15/17Here to establish carePMD Roni Munoz Hx:LBPHLDNeuropathyBPH SmokingReviewed social family and surgical historyHe states that he is here to discuss the above and also wants to check his ears out as he thinks he has 'clogged ears'He states that he does see pain management in [place] and gets his pain meds from them OV 06/30/17:Here for his follow up aptHe states that in the interim he has been to the ER for chest pain and was told it was muscular type pain, he did see [facility] Dr Liang and was given a lab slip to get a Lipid panelHe was in the ER on 06/22/17Today he states that he is doing well, no complaintsHe did do the labs at the [facility], on 05/25/17 and this was ordered by Pati ANDRES OV 12/14/17:Here for his routine apt, feels that he is doing well at this timeNo recent labs doneHere as he would like to get a EMG as he has noted N/T in the wrist and 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 OV 01/18/18:ACV:Here for ear ache on R earHe denies any fevers or chillsNo N/VSince last WednesdayHe states that his put in a sera pin and since then it has been hurting him OV 02/10/18:ACV:Here to discuss the a spot on the backHe does not have any pain, he states that his told him to 'check it out'No other complaints noted OV 07/04/18:Here for his routine aptHe did see Kae Machado [employer], and has not done any new labsHe has L IF pain and is on an antibiotic OV 07/12/18:Here for his ear washHe is also here as he requires an ear wash OV 11/15/18:Here for his routine aptNo recent labsHe feels well, he did see [facility] but today he is not very sure of the med listHe also wants a referral to his old ortho in [place], not sure of the name for R shoulder pain, he states that he did have RCR 3-4 years ago and was told that he had bone spurs OV 01/02/19:Here for his L shoulder pain, is to get surgeryIs doing well otherwiseDid do the labs OV 02/02/19:S/p ER visit [facility] for SOB, he did do the labs, got steroids and levaquin, still has 4 days left of thisHe feels that he is not able to sleep and he does have a cough especially when he lies downHe was seen in the yesterday for the SOB and this did not help eitherNo chest pain, +ve palpitations, and presyncope, no syncopeJust cannot get a breath OV 02/14/19:Here for his routine aptIs to see Dr Liang on 02/20/19 and is to labs this He states that he is doing well OV 03/09/19:Here for his apt to discuss the ozempicHe would also like to get a referral to Dr Liang and his pulmonologistHe feels well otherwise and has done labs and his ROS is negative OV 06/20/2019:Here for his routine aptHe states that she has had some URI sxHe still has a cough yellow productive, no blood, no fevers or chillsNo chest pain, no SOBHe states that his dentist did give him some penicillin for his teeth but he is almost done with the course and does not feel any betterHe has seen cardiology alsoHe also has to get a home sleep study done OV 11/28/2019:Here for his routine aptHe is doing well, but has R hip pain, worse, with sitting and sleepingHe denies any remote or acute trauma, pain is sharp on the lateral aspect and can radiate to the lateral upper thigh and into the R kneeNormal gaitNo N/THe has done the labsHe is here for his MWV also OV 03/14/2020;Here for his post hospital aptHe was admitted and d/c for an [place] s/p stentFeels well todayDoes want refill on the ozempicHe has no recent labs since his d/Shaw has seen his classifier tender Dr Emilee Lyons OV 04/16/2020:Here for his one month aptHe feels wellHe did do the labs OV 08/14/2020:Here for his routine aptHe does feel well today no complaintsHe did do the labs on 07/17/2020 and is here to review theseOV 12/24/2020:Here for his routine aptHe did do the CT chestHe also is here for his MWVHe has seen Dr Brumfield also fell on mud last Wednesday and now has R sided LBP, worst pain is 7/10, no LE weakness, no N/T in LENo loss of bowel or bladder controlHe also has to yet do the C-scope and has not seen Dr Sotomayor his cardiologistHe would like to get tested for the COVID 19 antibodiesOV 04/15/2021:Here for his routine aptHe is doing well, he would like to get his R ear flushedHe did do the labs OV 08/12/2021:Here for his routine apt wellness visitHe is doing well, no new labs OV 12/16/2021:Here for his routine aptHe feels well, still has LBP s/p LS spine surgery by Dr Haji was told now to f/u with an 'ortho'He has not done his labs OV 05/21/2022:Here for his f/u apt, he feels well, he did labs on 12/17/2021, now is to get R EMILIA to be done by Dr Troncoso OV 09/22/2022:Here for his routine apt, he is doing well, he did get labs and he did get the R EMILIA, wants to discuss getting on Mounjaro OV 10/13/2022:Here for his Mounjaro teaching, is doing well, his home visiting nurse did teach him how to use the Mounjaro OV 01/26/2023: Here for his f/u apt, he feels well, s/p fall but states that he has no complaints, no head injury OV 09/14/2023: Here for his routine apt, he is doing well today OV 09/27/2023: Here for ACV and also to discuss his labs, c/o 'clogged ears', no d/c from the ears, no dizziness, no fevers or chills OV 03/23/2024: Here for his f/u apt, he is doing well today, he is here for his MWV also OV 06/29/2024: Here for his f/u apt, he feels well today OV 07/13/2023: Here for ACVWas wanting to see if he has ear wax as he is having tinnitus in the R ear, no d/c, normal hearing, no fevers or chills, no dizziness, states that he did put debroxHe would also like an order for a PSA, he is seeing his urologist OV 08/29/2024: Here for post hosp for chest pain, is to see Dr Sotomayor tomorrow, needs NTG filled, he has yet to do labs, he is still c/o CP, these are R sided and sharp and last 1-2 seconds OV 09/13/2024:Here for post hospital f/u, s/p CC, stress test now on isosorbide and amlodipine and lipitorHas to still see Dr Bridget Lazo MD [address], [address], [place], [address], [place] [facility] [employer] 09/19/2024 14:07:55 01/02/2025 text/html 06/15/17Here to establish carePMD Roni Mackayast Hx:LBPHLDNeuropathyBPH SmokingReviewed social family and surgical historyHe states that he is here to discuss the above and also wants to check his ears out as he thinks he has 'clogged ears'He states that he does see pain management in [place] and gets his pain meds from them OV 06/30/17:Here for his follow up aptHe states that in the interim he has been to the ER for chest pain and was told it was muscular type pain, he did see [facility] Dr Liang and was given a lab slip to get a Lipid panelHe was in the ER on 06/22/17Today he states that he is doing well, no complaintsHe did do the labs at the [facility], on 05/25/17 and this was ordered by Pati ANDRES OV 12/14/17:Here for his routine apt, feels that he is doing well at this timeNo recent labs doneHere as he would like to get a EMG as he has noted N/T in the wrist and 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 OV 01/18/18:ACV:Here for ear ache on R earHe denies any fevers or chillsNo N/VSince last WednesdayHe states that his put in a sera pin and since then it has been hurting him OV 02/10/18:ACV:Here to discuss the a spot on the backHe does not have any pain, he states that his told him to 'check it out'No other complaints noted OV 07/04/18:Here for his routine aptHe did see Kae Machado [employer], and has not done any new labsHe has L IF pain and is on an antibiotic OV 07/12/18:Here for his ear washHe is also here as he requires an ear wash OV 11/15/18:Here for his routine aptNo recent labsHe feels well, he did see [facility] but today he is not very sure of the med listHe also wants a referral to his old ortho in [place], not sure of the name for R shoulder pain, he states that he did have RCR 3-4 years ago and was told that he had bone spurs OV 01/02/19:Here for his L shoulder pain, is to get surgeryIs doing well otherwiseDid do the labs OV 02/02/19:S/p ER visit [facility] for SOB, he did do the labs, got steroids and levaquin, still has 4 days left of thisHe feels that he is not able to sleep and he does have a cough especially when he lies downHe was seen in the yesterday for the SOB and this did not help eitherNo chest pain, +ve palpitations, and presyncope, no syncopeJust cannot get a breath OV 02/14/19:Here for his routine aptIs to see Dr Liang on 02/20/19 and is to labs this He states that he is doing well OV 03/09/19:Here for his apt to discuss the ozempicHe would also like to get a referral to Dr Liang and his pulmonologistHe feels well otherwise and has done labs and his ROS is negative OV 06/20/2019:Here for his routine aptHe states that she has had some URI sxHe still has a cough yellow productive, no blood, no fevers or chillsNo chest pain, no SOBHe states that his dentist did give him some penicillin for his teeth but he is almost done with the course and does not feel any betterHe has seen cardiology alsoHe also has to get a home sleep study done OV 11/28/2019:Here for his routine aptHe is doing well, but has R hip pain, worse, with sitting and sleepingHe denies any remote or acute trauma, pain is sharp on the lateral aspect and can radiate to the lateral upper thigh and into the R kneeNormal gaitNo N/THe has done the labsHe is here for his MWV also OV 03/14/2020;Here for his post hospital aptHe was admitted and d/c for an [place] s/p stentFeels well todayDoes want refill on the ozempicHe has no recent labs since his d/Shaw has seen his classifier tender Dr Emilee Lyons OV 04/16/2020:Here for his one month aptHe feels wellHe did do the labs OV 08/14/2020:Here for his routine aptHe does feel well today no complaintsHe did do the labs on 07/17/2020 and is here to review theseOV 12/24/2020:Here for his routine aptHe did do the CT chestHe also is here for his MWVHe has seen Dr Brumfield also fell on mud last Wednesday and now has R sided LBP, worst pain is 7/10, no LE weakness, no N/T in LENo loss of bowel or bladder controlHe also has to yet do the C-scope and has not seen Dr Sotomayor his cardiologistHe would like to get tested for the COVID 19 antibodiesOV 04/15/2021:Here for his routine aptHe is doing well, he would like to get his R ear flushedHe did do the labs OV 08/12/2021:Here for his routine apt wellness visitHe is doing well, no new labs OV 12/16/2021:Here for his routine aptHe feels well, still has LBP s/p LS spine surgery by Dr Haji was told now to f/u with an 'ortho'He has not done his labs OV 05/21/2022:Here for his f/u apt, he feels well, he did labs on 12/17/2021, now is to get R EMILIA to be done by Dr Troncoso OV 09/22/2022:Here for his routine apt, he is doing well, he did get labs and he did get the R EMILIA, wants to discuss getting on Mounjaro OV 10/13/2022:Here for his Mounjaro teaching, is doing well, his home visiting nurse did teach him how to use the Mounjaro OV 01/26/2023: Here for his f/u apt, he feels well, s/p fall but states that he has no complaints, no head injury OV 09/14/2023: Here for his routine apt, he is doing well today OV 09/27/2023: Here for ACV and also to discuss his labs, c/o 'clogged ears', no d/c from the ears, no dizziness, no fevers or chills OV 03/23/2024: Here for his f/u apt, he is doing well today, he is here for his MWV also OV 06/29/2024: Here for his f/u apt, he feels well today OV 07/13/2023: Here for ACVWas wanting to see if he has ear wax as he is having tinnitus in the R ear, no d/c, normal hearing, no fevers or chills, no dizziness, states that he did put debroxHe would also like an order for a PSA, he is seeing his urologist OV 08/29/2024: Here for post hosp for chest pain, is to see Dr Sotomayor tomorrow, needs NTG filled, he has yet to do labs, he is still c/o CP, these are R sided and sharp and last 1-2 seconds OV 09/13/2024:Here for post hospital f/u, s/p CC, stress test now on isosorbide and amlodipine and lipitorHas to still see Dr Sotomayor OV 01/02/2025: Here for his ACV for his R ear ache, no d/c, notes pain and the ear being 'swollen' not now, no fevers or chills, no dizziness noted Sammi Lazo MD [address], [address], [place], [address], [place] [facility] [employer] 01/02/2025 15:13:09 02/07/2025 text/html 06/15/17Here to establish carePMD Roni Munoz Hx:LBPHLDNeuropathyBPH SmokingReviewed social family and surgical historyHe states that he is here to discuss the above and also wants to check his ears out as he thinks he has 'clogged ears'He states that he does see pain management in [place] and gets his pain meds from them OV 06/30/17:Here for his follow up aptHe states that in the interim he has been to the ER for chest pain and was told it was muscular type pain, he did see [facility] Dr Liang and was given a lab slip to get a Lipid panelHe was in the ER on 06/22/17Today he states that he is doing well, no complaintsHe did do the labs at the [facility], on 05/25/17 and this was ordered by Pati ANDRES OV 12/14/17:Here for his routine apt, feels that he is doing well at this timeNo recent labs doneHere as he would like to get a EMG as he has noted N/T in the wrist and 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 OV 01/18/18:ACV:Here for ear ache on R earHe denies any fevers or chillsNo N/VSince last WednesdayHe states that his put in a sera pin and since then it has been hurting him OV 02/10/18:ACV:Here to discuss the a spot on the backHe does not have any pain, he states that his told him to 'check it out'No other complaints noted OV 07/04/18:Here for his routine aptHe did see Kae Machado [employer]ATION ATT[employer], and has not done any new labsHe has L IF pain and is on an antibiotic OV 07/12/18:Here for his ear washHe is also here as he requires an ear wash OV 11/15/18:Here for his routine aptNo recent labsHe feels well, he did see [facility] but today he is not very sure of the med listHe also wants a referral to his old ortho in [place], not sure of the name for R shoulder pain, he states that he did have RCR 3-4 years ago and was told that he had bone spurs OV 01/02/19:Here for his L shoulder pain, is to get surgeryIs doing well otherwiseDid do the labs OV 02/02/19:S/p ER visit [facility] for SOB, he did do the labs, got steroids and levaquin, still has 4 days left of thisHe feels that he is not able to sleep and he does have a cough especially when he lies downHe was seen in the yesterday for the SOB and this did not help eitherNo chest pain, +ve palpitations, and presyncope, no syncopeJust cannot get a breath OV 02/14/19:Here for his routine aptIs to see Dr Liang on 02/20/19 and is to labs this He states that he is doing well OV 03/09/19:Here for his apt to discuss the ozempicHe would also like to get a referral to Dr Liang and his pulmonologistHe feels well otherwise and has done labs and his ROS is negative OV 06/20/2019:Here for his routine aptHe states that she has had some URI sxHe still has a cough yellow productive, no blood, no fevers or chillsNo chest pain, no SOBHe states that his dentist did give him some penicillin for his teeth but he is almost done with the course and does not feel any betterHe has seen cardiology alsoHe also has to get a home sleep study done OV 11/28/2019:Here for his routine aptHe is doing well, but has R hip pain, worse, with sitting and sleepingHe denies any remote or acute trauma, pain is sharp on the lateral aspect and can radiate to the lateral upper thigh and into the R kneeNormal gaitNo N/THe has done the labsHe is here for his MWV also OV 03/14/2020;Here for his post hospital aptHe was admitted and d/c for an UT s/p stentFeels well todayDoes want refill on the ozempicHe has no recent labs since his d/Shaw has seen his classifier tender Dr Emilee Lyons OV 04/16/2020:Here for his one month aptHe feels wellHe did do the labs OV 08/14/2020:Here for his routine aptHe does feel well today no complaintsHe did do the labs on 07/17/2020 and is here to review theseOV 12/24/2020:Here for his routine aptHe did do the CT chestHe also is here for his MWVHe has seen Dr Brumfield also fell on mud last Wednesday and now has R sided LBP, worst pain is 7/10, no LE weakness, no N/T in LENo loss of bowel or bladder controlHe also has to yet do the C-scope and has not seen Dr Sotomayor his cardiologistHe would like to get tested for the COVID 19 antibodiesOV 04/15/2021:Here for his routine aptHe is doing well, he would like to get his R ear flushedHe did do the labs OV 08/12/2021:Here for his routine apt wellness visitHe is doing well, no new labs OV 12/16/2021:Here for his routine aptHe feels well, still has LBP s/p LS spine surgery by Dr Haji was told now to f/u with an 'ortho'He has not done his labs OV 05/21/2022:Here for his f/u apt, he feels well, he did labs on 12/17/2021, now is to get R EMILIA to be done by Dr Troncoso OV 09/22/2022:Here for his routine apt, he is doing well, he did get labs and he did get the R EMILIA, wants to discuss getting on Mounjaro OV 10/13/2022:Here for his Mounjaro teaching, is doing well, his home visiting nurse did teach him how to use the Mounjaro OV 01/26/2023: Here for his f/u apt, he feels well, s/p fall but states that he has no complaints, no head injury OV 09/14/2023: Here for his routine apt, he is doing well today OV 09/27/2023: Here for ACV and also to discuss his labs, c/o 'clogged ears', no d/c from the ears, no dizziness, no fevers or chills OV 03/23/2024: Here for his f/u apt, he is doing well today, he is here for his MWV also OV 06/29/2024: Here for his f/u apt, he feels well today OV 07/13/2023: Here for ACVWas wanting to see if he has ear wax as he is having tinnitus in the R ear, no d/c, normal hearing, no fevers or chills, no dizziness, states that he did put debroxHe would also like an order for a PSA, he is seeing his urologist OV 08/29/2024: Here for post hosp for chest pain, is to see Dr Sotomayor tomorrow, needs NTG filled, he has yet to do labs, he is still c/o CP, these are R sided and sharp and last 1-2 seconds OV 09/13/2024:Here for post hospital f/u, s/p CC, stress test now on isosorbide and amlodipine and lipitorHas to still see Dr Sotomayor OV 01/02/2025: Here for his ACV for his R ear ache, no d/c, notes pain and the ear being 'swollen' not now, no fevers or chills, no dizziness noted OV 02/07/2025: Here for his f/u apt, he did do the labs, now has noted some L leg painNo trauma, very worried that he may have a blood clotHe also wants to get the wax removed from both his ears Sammi Lazo MD [address] [facility], [facility] [address], [place], [address], [facility] [employer] 02/07/2025 16:39:40 02/12/2025 text/html The patient is a 64-year-old male who presents with a three-month history of lateral lower leg pain in the midportion of the lower leg. Denies any specific trauma or injury not sure why he is having this pain. The pain is very pinpoint midway through the lateral portion of the left lower extremity. He denies any effusion or swelling no erythema heat and no neurovascular deficits. He states he has never had any previous injuries to the leg. 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 He denies any lumps or bumps no evidence of muscular herniation through the fascia. He had a ultrasound done of the left lower extremity this showed no superficial thrombophlebitis or DVT no evidence of soft tissue masses. This was done last week. He states he does have pain with ambulation has tried conservative measures on his own at home with activity modification also no significant relief is noted. He states the pain is about a 7 on a scale of 1-10 he can not stand or walk for long periods we are going to get x-rays today. Comes in today for initial evaluation and treatment. New past medical history sheet was reviewed and signed on the intake sheet of today's date drug allergies current medications family social history previous surgical history 10 point review of systems was reviewed and discussed in detail today with the patient. ADITI Haley [address] [place] [address], [facility] [address], [place], [address], [place] - [facility] [employer] 02/12/2025 13:17:23 03/13/2025 text/html the patient returns for recheck and follow up after an MRI scan of the left lower extremity. The patient was having pain and tenderness in the lateral calf midportion. He denies any specific trauma or injury. He has had issues there for several months now. Denies any swelling no evidence of DVT no erythema heat or other signs of infection and no weakness. He states if he pushes on it is tender and sore but not swollen. Denies any numbness or tingling down the leg into the foot. He is not sure where the pain started. There was also what appeared to be some cortical thickening localized to the lateral portion of the tibia midway down the shaft. An MRI scan was performed this demonstrates a proximal anterior tibialis and extensor hallucis longus muscular strain as well as mild distal medial gastrocnemius muscular strain. No evidence of bony abnormalities noted. No evidence of full-thickness muscular or tendinous injury. I reviewed the MRI scan in detail today with the patient in the was given a copy of his MRI report. He states he continues to have moderate discomfort. He has mildly limited in his daily activities because of the discomfort. He comes in today for further follow up. ADITI Haley [address] [facility], [facility] [address], [place], [address], [place] [facility] 03/13/2025 12:18:40
== END 2025-03-22 14:00 | disposition home or self-care (01) ==
PROVIDERS: Student in an Organized Health Care Education/Training Program; Emergency Provider Student in an Organized Health Care Education/Training Program; PCP Internal Medicine
DX: R07.9 Chest pain, unspecified (principal); E11.65 Type 2 diabetes mellitus with hyperglycemia; I10 Essential (primary) hypertension; I25.10 Atherosclerotic heart disease of native coronary artery without angina pectoris; J44.9 Chronic obstructive pulmonary disease, unspecified; E78.5 Hyperlipidemia, unspecified; E78.1 Pure hyperglyceridemia; E11.40 Type 2 diabetes mellitus with diabetic neuropathy, unspecified; G47.30 Sleep apnea, unspecified; F17.210 Nicotine dependence, cigarettes, uncomplicated; Z95.5 Presence of coronary angioplasty implant and graft; Z86.0101 Personal history of adenomatous and serrated colon polyps; I44.4 Left anterior fascicular block; I51.7 Cardiomegaly; R94.31 Abnormal electrocardiogram [ECG] [EKG]; Z79.82 Long term (current) use of aspirin; Z79.84 Long term (current) use of oral hypoglycemic drugs; Z79.899 Other long term (current) drug therapy
CPT/HCPCS: 36415; 71046; 80053; 83690; 84484; 85025; 85610; 85730; 93005; 99284